=== PATIENT | male | born 1955 | race Hispanic/Latino ===

== ENCOUNTER 2018-10-27 14:43 | Emergency (ER) | payer OTHER, SELFPAY ==
[2018-10-27 14:52] VITALS: BP 135/81; PULSE 69; RESP 18; TEMP 36.2; O2SAT 96; BMI 30.2
--- NOTE | 2018-10-27 17:18 | DI.RAD.S_ITS ---
PROCEDURE: XR HIP W PEL IF DONE LT 2V INDICATIONS: pain s/p fall TECHNIQUE: AP pelvis with lateral view(s) of the left hip(s). COMPARISON: None. FINDINGS: Bones: No fractures or dislocations. Pelvic ring appears intact. No suspicious bony lesions. Moderate bilateral hip osteoarthritis. Soft tissues: The visualized bowel gas pattern is normal. No suspicious soft tissue calcifications. IMPRESSION: No fracture. No osseous lesion. If there are persistent symptoms or clinical suspicion for pathology, then repeat radiographs or advanced imaging (CT, MRI or bone scan) should be considered for further evaluation. Dictated by: Lynne Rivera MD, PhD on 10/27/2018 at 17:45 Approved by: Lynne Rivera MD, PhD on 10/27/2018 at 17:46
--- NOTE | 2018-10-27 17:18 | DI.RAD.S_ITS ---
PROCEDURE: XR SHOULDER LT MIN 2V INDICATIONS: pain s/p fall TECHNIQUE: 3 views of the shoulder were acquired. COMPARISON: None. FINDINGS: Bones: No fractures or dislocations. No suspicious bony lesions. Visualized ribs appear intact. Minimal acromioclavicular joint and glenohumeral joint osteoarthritis. Soft tissues: No suspicious soft tissue calcifications. IMPRESSION: No fracture. No acute osseous lesion. If there are persistent symptoms or clinical suspicion for pathology, then repeat radiographs or advanced imaging (CT, MRI or bone scan) should be considered for further evaluation. Dictated by: Lynne Rivera MD, PhD on 10/27/2018 at 17:44 Approved by: Lynne Rivera MD, PhD on 10/27/2018 at 17:45
--- NOTE | 2018-10-27 17:18 | DI.RAD.S_ITS ---
PROCEDURE: XR SHOULDER RT MIN 2V INDICATIONS: pain sp fall TECHNIQUE: 3 views of the shoulder were acquired. COMPARISON: None. FINDINGS: Bones: No fractures or dislocations. No suspicious bony lesions. Visualized ribs appear intact. Acromioclavicular joint and glenohumeral joint osteoarthritis. Soft tissues: No suspicious soft tissue calcifications. IMPRESSION: No fracture. No acute osseous lesion. If there are persistent symptoms or clinical suspicion for pathology, then repeat radiographs or advanced imaging (CT, MRI or bone scan) should be considered for further evaluation. Dictated by: Lynne Rivera MD, PhD on 10/27/2018 at 17:43 Approved by: Lynne Rivera MD, PhD on 10/27/2018 at 17:44
--- NOTE | 2018-10-27 21:56 | ED.TRAUMA ---
HPI - Trauma <GREY Bell - Last Filed: 10/27/18 22:31> General Chief Complaint: Extremity Injury, Upper Stated Complaint: fell in Fe, injured lt shoulder and hip Time Seen by Provider: 10/27/18 17:12 Source: patient Mode of arrival: ambulatory Limitations: no limitations History of Present Illness HPI narrative: Patient is a 63-year-old male former smoker who presents after ground level falls on the 8 than 20 sec. He states he was at work and slipped on ice multiple times. He complains of bilateral shoulder pain as well as hip pain on his left side. He denies loss of consciousness, neck or back pain. He complains of decreased range of motion, especially in his left shoulder. He denies any bruising. He has not up with primary care provider since the incident. The patient stated he has not been seen for his pain related to these falls, even though they happened more than a month ago as he kept hoping he would get better. Related Data Home Medications Medication Instructions Recorded Confirmed aspirin 81 mg PO QDAY #0 10/22/11 simvastatin 20 mg PO QDAY #0 10/22/11 Previous Rx's Medication Instructions Recorded lidocaine 2 patch TOP DAILY #15 each 10/27/18 Allergies Allergy/AdvReac Type Severity Reaction Status Date / Time codeine [CODEINE] Allergy Intermediate Rash Unverified 10/27/18 15:02 Review of Systems <GREY Bell - Last Filed: 10/27/18 22:31> Review of Systems GENERAL: Denies chills, fatigue, malaise, fever, sweats. HEENT: Denies sinus pain, ear pain, sore throat, difficulty swallowing, dizziness. RESPIRATORY: Denies dyspnea, cough, wheezing, hemoptysis, sputum. CARDIOVASCULAR: Denies chest pain, palpitations, orthopnea, edema, GASTROINTESTINAL: Denies nausea, vomiting, abdominal pain, diarrhea, constipation, melena. : Denies dysuria, frequency, incontinence, hematuria, urinary retention. MUSCULOSKELETAL: See HPI SKIN: Denies rash, skin lesions, or other NEUROLOGIC: Denies weakness, headache, numbness, change in speech, confusion, seizures, incoordination. PSYCHIATRIC: No concerning psychosocial issues. 12 point review of systems is negative except for those stated above PFSH <GREY Bell - Last Filed: 10/27/18 22:31> Social History Smoking Status: Former smoker Social History Smoking Status: Former smoker Exam <Nida Santos STRAP MAKING MACHINE OPERATOR-BC - Last Filed: 10/27/18 22:31> Narrative Exam Narrative: GENERAL: This is a well-nourished, well-developed patient, in no acute distress HEAD: Atraumatic. Normocephalic. No temporal or scalp tenderness. EYES: Pupils equal round and reactive. Extraocular motions intact. No scleral icterus. No injection or drainage. ENT: Nose without bleeding, purulent drainage or septal hematoma. Throat without erythema, tonsillar hypertrophy or exudate. Uvula midline. Airway patent. NECK: Trachea midline. No JVD or lymphadenopathy. Supple, nontender, no meningeal signs. CARDIOVASCULAR: Regular rate and rhythm without murmurs, gallops, or rubs. RESPIRATORY: Clear to auscultation. Breath sounds equal bilaterally. No wheezes, rales, or rhonchi. GASTROINTESTINAL: Abdomen soft, non-tender, nondistended. No hepato-splenomegaly, or palpable masses. No guarding. EXTREMITIES: Generalized pain to palpation bilateral shoulders. Left shoulder reduced range of motion all ramírez. Bilateral radial pulses noted. General pain to palpation noted left hip. BACK: Nontender without deformity or crepitance. No flank tenderness. No pain to C-spine or spinal palpation. NEURO: AOx3. Strength equal upper extremities and lower extremities bilaterally. SKIN: No erythema, no ecchymosis, no rash or abrasion noted bilateral shoulders and left hip. Initial Vital Signs Initial Vital Signs: Vital Signs Temperature 97.2 F L 10/27/18 14:52 Pulse Rate 69 10/27/18 14:52 Respiratory Rate 18 10/27/18 14:52 Blood Pressure 135/81 10/27/18 14:52 Pulse Oximetry 96 10/27/18 14:52 <Nida Weiner DO - Last Filed: 10/30/18 08:30> Initial Vital Signs Initial Vital Signs: Vital Signs Temperature 97.2 F L 10/27/18 14:52 Pulse Rate 69 10/27/18 14:52 Respiratory Rate 18 10/27/18 14:52 Blood Pressure 135/81 10/27/18 14:52 Pulse Oximetry 96 10/27/18 14:52 Course <GREY Bell - Last Filed: 10/27/18 22:31> Orders Ordered: ED Orders 10/27/18 17:18 XR hip w pel if done LT 2V Stat XR shoulder LT min 2V Stat XR shoulder RT min 2V Stat Vital Signs - 8 hr 10/27/18 14:52 Temperature 97.2 F L Pulse Rate 69 Respiratory Rate 18 Blood Pressure 135/81 Pulse Oximetry 96 <Nida Weiner DO - Last Filed: 10/30/18 08:30> Orders Ordered: ED Orders 10/27/18 17:18 XR hip w pel if done LT 2V Stat XR shoulder LT min 2V Stat XR shoulder RT min 2V Stat Vital Signs - 8 hr 10/27/18 14:52 Temperature 97.2 F L Pulse Rate 69 Respiratory Rate 18 Blood Pressure 135/81 Pulse Oximetry 96 MDM - Trauma <GREY Bell - Last Filed: 10/27/18 22:31> Imaging Data hip xray: Radiologist's impression: [address] [address] XRay Report Signed Patient: Darnell GoelMR#: [id number] : 4Acct:[id number] Age/Sex: 63 / MDate of Service: 10/27/18 Loc: ED Accession Number: [id number] Procedure: XR hip w pel if done LT 2V Ordering Provider: Nida Santos-BLANCA PROCEDURE: XR HIP W PEL IF DONE LT 2V INDICATIONS: pain s/p fall TECHNIQUE: AP pelvis with lateral view(s) of the left hip(s). COMPARISON: None. FINDINGS: Bones: No fractures or dislocations. Pelvic ring appears intact. No suspicious bony lesions. Moderate bilateral hip osteoarthritis. Soft tissues: The visualized bowel gas pattern is normal. No suspicious soft tissue calcifications. IMPRESSION: No fracture. No osseous lesion. If there are persistent symptoms or clinical suspicion for pathology, then repeat radiographs or advanced imaging (CT, MRI or bone scan) should be considered for further evaluation. Dictated by: Lynne Rivera MD, PhD on 10/27/2018 at 17:45 Approved by: Lynne Rivera MD, PhD on 10/27/2018 at 17:46 right shoulder: Radiologist's impression: [address] [address] XRay Report Signed Patient: Darnell Goel#: [id number] : 1955t:[id number] Age/Sex: 63 / MDate of Service: 10/27/18 Loc: ED Accession Number: [id number] Procedure: XR shoulder RT min 2V Ordering Provider: Nida Santos PROCEDURE: XR SHOULDER RT MIN 2V INDICATIONS: pain sp fall TECHNIQUE: 3 views of the shoulder were acquired. COMPARISON: None. FINDINGS: Bones: No fractures or dislocations. No suspicious bony lesions. Visualized ribs appear intact. Acromioclavicular joint and glenohumeral joint osteoarthritis. Soft tissues: No suspicious soft tissue calcifications. IMPRESSION: No fracture. No acute osseous lesion. If there are persistent symptoms or clinical suspicion for pathology, then repeat radiographs or advanced imaging (CT, MRI or bone scan) should be considered for further evaluation. Dictated by: Lynne Rivera MD, PhD on 10/27/2018 at 17:43 Approved by: Lynne Rivera MD, PhD on 10/27/2018 at 17:44 left shoulder xray : Radiologist's impression: [address] [address] XRay Report Signed Patient: Darnell Goel#: [id number] : 4At:[id number] Age/Sex: 63 / MDate of Service: 10/27/18 Loc: ED Accession Number: [id number] Procedure: XR shoulder LT min 2V Ordering Provider: Nida Santos PROCEDURE: XR SHOULDER LT MIN 2V INDICATIONS: pain s/p fall TECHNIQUE: 3 views of the shoulder were acquired. COMPARISON: None. FINDINGS: Bones: No fractures or dislocations. No suspicious bony lesions. Visualized ribs appear intact. Minimal acromioclavicular joint and glenohumeral joint osteoarthritis. Soft tissues: No suspicious soft tissue calcifications. IMPRESSION: No fracture. No acute osseous lesion. If there are persistent symptoms or clinical suspicion for pathology, then repeat radiographs or advanced imaging (CT, MRI or bone scan) should be considered for further evaluation. Dictated by: Lynne Rivera MD, PhD on 10/27/2018 at 17:44 Approved by: Lynne Rivera MD, PhD on 10/27/2018 at 17:45 [facility] Narrative Medical decision making narrative: The patient is a 63-year-old male who presents with chief complaint of bilateral shoulder pain and left-sided hip pain after ground level falls repeatedly last month for work. All of his x-rays came back normal. However I am concerned about the decreased range of motion as left shoulder. I encouraged him to follow up with primary care provider as he may need physical therapy or more imaging. I gave him a prescription of lidocaine patches to use the most painful areas. I encouraged him to use rest ice compression elevation as well as [id number] pain medications as needed and able. Patient has no questions or concerns upon discharge. I gave the patient a note for decreased lifting as well as no overhead work until he was cleared by another provider. Patient questions or concerns upon discharge. Discharge Plan Departure Patient Disposition: Home Clinical Impression: Fall from ground level Bilateral shoulder pain Qualifiers: Chronicity: acute Qualified Code(s): M25.511 - Pain in right shoulder Decreased range of motion (ROM) of shoulder Qualifiers: Laterality: left Qualified Code(s): M25.612 - Stiffness of left shoulder, not elsewhere classified Acute hip pain Qualifiers: Laterality: left Qualified Code(s): M25.552 - Pain in left hip Discharge Date/Time: 10/27/18 18:31 Interventions: ED Discharge Assessment Last Done: 10/27/18 18:31 Instructions: How To Perform RICE (Rest, Ice, Compress, Elevate), DI for Shoulder Pain, DI for Hip Pain Activity Restrictions/Additional Instructions: Your x-rays came back normal today. Please follow up with primary care provider in the next few days. I am concerned that you need further evaluation and workup, especially for her left shoulder. Please use rest ice compression elevation. You declined a sling today. I am giving you a note for no heavy lifting as well as no overhead work. Come back to the emergency department for any acute concerns. Prescriptions: New lidocaine 5 % adhesive patch,medicated 2 patch TOP DAILY Qty: 15 RF: 0 No Action simvastatin 20 MG tablet 20 mg PO QDAY Qty: 0 RF: 0 aspirin 81 MG tablet,chewable 81 mg PO QDAY Qty: 0 RF: 0 Stand Alone Forms: Work Release Note <Nida Weiner DO - Last Filed: 10/30/18 08:30> Cosign ED Attending Cosignature Attestation: I was immediately available in the department for consultation. This documentation has been reviewed and I agree with assessment and plan. Supervised by Nida Weiner DO
--- NOTE | 2018-10-27 22:20 | ED_ITS ---
HPI - Trauma <GREY Bell - Last Filed: 10/27/18 22:31> General Chief Complaint: Extremity Injury, Upper Stated Complaint: fell in Fe, injured lt shoulder and hip Time Seen by Provider: 10/27/18 17:12 Source: patient Mode of arrival: ambulatory Limitations: no limitations History of Present Illness HPI narrative: Patient is a 63-year-old male former smoker who presents after ground level falls on the 8 than 20 sec. He states he was at work and slipped on ice multiple times. He complains of bilateral shoulder pain as well as hip pain on his left side. He denies loss of consciousness, neck or back pain. He complains of decreased range of motion, especially in his left shoulder. He denies any bruising. He has not up with primary care provider since the incident. The patient stated he has not been seen for his pain related to these falls, even though they happened more than a month ago as he kept hoping he would get better. Related Data Home Medications Medication Instructions Recorded Confirmed aspirin 81 mg PO QDAY #0 10/22/11 simvastatin 20 mg PO QDAY #0 10/22/11 Previous Rx's Medication Instructions Recorded lidocaine 2 patch TOP DAILY #15 each 10/27/18 Allergies Allergy/AdvReac Type Severity Reaction Status Date / Time codeine [CODEINE] Allergy Intermediate Rash Unverified 10/27/18 15:02 Review of Systems <GREY Bell - Last Filed: 10/27/18 22:31> Review of Systems GENERAL: Denies chills, fatigue, malaise, fever, sweats. HEENT: Denies sinus pain, ear pain, sore throat, difficulty swallowing, dizziness. RESPIRATORY: Denies dyspnea, cough, wheezing, hemoptysis, sputum. CARDIOVASCULAR: Denies chest pain, palpitations, orthopnea, edema, GASTROINTESTINAL: Denies nausea, vomiting, abdominal pain, diarrhea, constipation, melena. : Denies dysuria, frequency, incontinence, hematuria, urinary retention. MUSCULOSKELETAL: See HPI SKIN: Denies rash, skin lesions, or other NEUROLOGIC: Denies weakness, headache, numbness, change in speech, confusion, seizures, incoordination. PSYCHIATRIC: No concerning psychosocial issues. 12 point review of systems is negative except for those stated above PFSH <GREY Bell - Last Filed: 10/27/18 22:31> Social History Smoking Status: Former smoker Social History Smoking Status: Former smoker Exam <Nida Santos BOG CUTTER-BC - Last Filed: 10/27/18 22:31> Narrative Exam Narrative: GENERAL: This is a well-nourished, well-developed patient, in no acute distress HEAD: Atraumatic. Normocephalic. No temporal or scalp tenderness. EYES: Pupils equal round and reactive. Extraocular motions intact. No scleral icterus. No injection or drainage. ENT: Nose without bleeding, purulent drainage or septal hematoma. Throat without erythema, tonsillar hypertrophy or exudate. Uvula midline. Airway patent. NECK: Trachea midline. No JVD or lymphadenopathy. Supple, nontender, no meningeal signs. CARDIOVASCULAR: Regular rate and rhythm without murmurs, gallops, or rubs. RESPIRATORY: Clear to auscultation. Breath sounds equal bilaterally. No wheezes, rales, or rhonchi. GASTROINTESTINAL: Abdomen soft, non-tender, nondistended. No hepato- splenomegaly, or palpable masses. No guarding. EXTREMITIES: Generalized pain to palpation bilateral shoulders. Left shoulder reduced range of motion all ramírez. Bilateral radial pulses noted. General pain to palpation noted left hip. BACK: Nontender without deformity or crepitance. No flank tenderness. No pain to C-spine or spinal palpation. NEURO: AOx3. Strength equal upper extremities and lower extremities bilaterally. SKIN: No erythema, no ecchymosis, no rash or abrasion noted bilateral shoulders and left hip. Initial Vital Signs Initial Vital Signs: Vital Signs Temperature 97.2 F L 10/27/18 14:52 Pulse Rate 69 10/27/18 14:52 Respiratory Rate 18 10/27/18 14:52 Blood Pressure 135/81 10/27/18 14:52 Pulse Oximetry 96 10/27/18 14:52 <Nida Weiner DO - Last Filed: 10/30/18 08:30> Initial Vital Signs Initial Vital Signs: Vital Signs Temperature 97.2 F L 10/27/18 14:52 Pulse Rate 69 10/27/18 14:52 Respiratory Rate 18 10/27/18 14:52 Blood Pressure 135/81 10/27/18 14:52 Pulse Oximetry 96 10/27/18 14:52 Course <GREY Blel - Last Filed: 10/27/18 22:31> Orders Ordered: ED Orders 10/27/18 17:18 XR hip w pel if done LT 2V Stat XR shoulder LT min 2V Stat XR shoulder RT min 2V Stat Vital Signs - 8 hr 10/27/18 14:52 Temperature 97.2 F L Pulse Rate 69 Respiratory Rate 18 Blood Pressure 135/81 Pulse Oximetry 96 <Nida Weiner DO - Last Filed: 10/30/18 08:30> Orders Ordered: ED Orders 10/27/18 17:18 XR hip w pel if done LT 2V Stat XR shoulder LT min 2V Stat XR shoulder RT min 2V Stat Vital Signs - 8 hr 10/27/18 14:52 Temperature 97.2 F L Pulse Rate 69 Respiratory Rate 18 Blood Pressure 135/81 Pulse Oximetry 96 MDM - Trauma <GREY Bell - Last Filed: 10/27/18 22:31> Imaging Data hip xray: Radiologist's impression: [address] [address] XRay Report Signed Patient: Darnell GoelMR#: [id number] : 4Acct:[id number] Age/Sex: 63 / MDate of Service: 10/27/18 Loc: ED Accession Number: [id number] Procedure: XR hip w pel if done LT 2V Ordering Provider: Nida Santos-BLANCA PROCEDURE: XR HIP W PEL IF DONE LT 2V INDICATIONS: pain s/p fall TECHNIQUE: AP pelvis with lateral view(s) of the left hip(s). COMPARISON: None. FINDINGS: Bones: No fractures or dislocations. Pelvic ring appears intact. No suspicious bony lesions. Moderate bilateral hip osteoarthritis. Soft tissues: The visualized bowel gas pattern is normal. No suspicious soft tissue calcifications. IMPRESSION: No fracture. No osseous lesion. If there are persistent symptoms or clinical suspicion for pathology, then repeat radiographs or advanced imaging (CT, MRI or bone scan) should be considered for further evaluation. Dictated by: Lynne Rivera MD, PhD on 10/27/2018 at 17:45 Approved by: Lynne Rivera MD, PhD on 10/27/2018 at 17:46 right shoulder: Radiologist's impression: [address] [address] XRay Report Signed Patient: Darnell Goel#: [id number] : 1955t:[id number] Age/Sex: 63 / MDate of Service: 10/27/18 Loc: ED Accession Number: [id number] Procedure: XR shoulder RT min 2V Ordering Provider: Nida Santos PROCEDURE: XR SHOULDER RT MIN 2V INDICATIONS: pain sp fall TECHNIQUE: 3 views of the shoulder were acquired. COMPARISON: None. FINDINGS: Bones: No fractures or dislocations. No suspicious bony lesions. Visualized ribs appear intact. Acromioclavicular joint and glenohumeral joint osteoarthritis. Soft tissues: No suspicious soft tissue calcifications. IMPRESSION: No fracture. No acute osseous lesion. If there are persistent symptoms or clinical suspicion for pathology, then repeat radiographs or advanced imaging (CT, MRI or bone scan) should be considered for further evaluation. Dictated by: Lynne Rivera MD, PhD on 10/27/2018 at 17:43 Approved by: Lynne Rivera MD, PhD on 10/27/2018 at 17:44 left shoulder xray : Radiologist's impression: [address] [address] XRay Report Signed Patient: Darnell Goel#: [id number] : 4At:[id number] Age/Sex: 63 / MDate of Service: 10/27/18 Loc: ED Accession Number: [id number] Procedure: XR shoulder LT min 2V Ordering Provider: Nida Santos PROCEDURE: XR SHOULDER LT MIN 2V INDICATIONS: pain s/p fall TECHNIQUE: 3 views of the shoulder were acquired. COMPARISON: None. FINDINGS: Bones: No fractures or dislocations. No suspicious bony lesions. Visualized ribs appear intact. Minimal acromioclavicular joint and glenohumeral joint osteoarthritis. Soft tissues: No suspicious soft tissue calcifications. IMPRESSION: No fracture. No acute osseous lesion. If there are persistent symptoms or clinical suspicion for pathology, then repeat radiographs or advanced imaging (CT, MRI or bone scan) should be considered for further evaluation. Dictated by: Lynne Rivera MD, PhD on 10/27/2018 at 17:44 Approved by: Lynne Rivera MD, PhD on 10/27/2018 at 17:45 [facility] Narrative Medical decision making narrative: The patient is a 63-year-old male who presents with chief complaint of bilateral shoulder pain and left-sided hip pain after ground level falls repeatedly last month for work. All of his x-rays came back normal. However I am concerned about the decreased range of motion as left shoulder. I encouraged him to follow up with primary care provider as he may need physical therapy or more imaging. I gave him a prescription of lidocaine patches to use the most painful areas. I encouraged him to use rest ice compression elevation as well as [id number] pain medications as needed and able. Patient has no questions or concerns upon discharge. I gave the patient a note for decreased lifting as well as no overhead work until he was cleared by another provider. Patient questions or concerns upon discharge. Discharge Plan Departure Patient Disposition: Home Clinical Impression: Fall from ground level Bilateral shoulder pain Qualifiers: Chronicity: acute Qualified Code(s): M25.511 - Pain in right shoulder Decreased range of motion (ROM) of shoulder Qualifiers: Laterality: left Qualified Code(s): M25.612 - Stiffness of left shoulder, not elsewhere classified Acute hip pain Qualifiers: Laterality: left Qualified Code(s): M25.552 - Pain in left hip Discharge Date/Time: 10/27/18 18:31 Interventions: ED Discharge Assessment Last Done: 10/27/18 18:31 Instructions: How To Perform RICE (Rest, Ice, Compress, Elevate), DI for Shoulder Pain, DI for Hip Pain Activity Restrictions/Additional Instructions: Your x-rays came back normal today. Please follow up with primary care provider in the next few days. I am concerned that you need further evaluation and workup, especially for her left shoulder. Please use rest ice compression elevation. You declined a sling today. I am giving you a note for no heavy lifting as well as no overhead work. Come back to the emergency department for any acute concerns. Prescriptions: New lidocaine 5 % adhesive patch,medicated 2 patch TOP DAILY Qty: 15 RF: 0 No Action simvastatin 20 MG tablet 20 mg PO QDAY Qty: 0 RF: 0 aspirin 81 MG tablet,chewable 81 mg PO QDAY Qty: 0 RF: 0 Stand Alone Forms: Work Release Note <Nida Weiner DO - Last Filed: 10/30/18 08:30> Cosign ED Attending Cosignature Attestation: I was immediately available in the department for consultation. This documentation has been reviewed and I agree with assessment and plan. Supervised by Nida Weiner DO
== END 2018-10-27 18:31 | disposition home or self-care (01) ==
PROVIDERS: Emergency Provider Nurse Practitioner Family
DX: M25.511 Pain in right shoulder (principal); M25.612 Stiffness of left shoulder, not elsewhere classified; M25.552 Pain in left hip; W00.0XXA Fall on same level due to ice and snow, initial encounter; Y99.0 Civilian activity done for income or pay
CPT/HCPCS: 73030; 73502; 99282; 99284

== ENCOUNTER 2019-02-19 09:49 | Emergency (ER) | payer OTHER, SELFPAY ==
[2019-02-19 09:50] VITALS: BP 137/85; PULSE 78; RESP 12; TEMP 36.7; O2SAT 99
--- NOTE | 2019-02-19 10:13 | DI.RAD.S_ITS ---
PROCEDURE: XR ANKLE LT MIN 3V INDICATIONS: injury TECHNIQUE: 3 views of the ankle were acquired. COMPARISON: None. FINDINGS: Bones: There is a moderately displaced fracture of the posterior malleolus. There is a mildly displaced fracture of the medial malleolus. There is widening of the medial ankle mortise. Small bony fragments adjacent to the calcaneocuboid joint. Soft tissues: No tibiotalar joint effusion. Achilles tendon appears normal. IMPRESSION: 1. Medial and posterior malleolar fractures. 2. 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 Dictated by: Lainey Kearns M.D. on 02/19/2019 at 10:32 Approved by: Lainey Kearns M.D. on 02/19/2019 at 10:33
--- NOTE | 2019-02-19 10:43 | ED.LOWEXIN ---
HPI - Extremity Injury (Lower) General Chief Complaint: Extremity Injury, Lower Stated Complaint: THINKS LEFT ANKLE IS BROKEN Time Seen by Provider: 02/19/19 10:01 Source: patient and family Mode of arrival: ambulatory Limitations: no limitations History of Present Illness HPI Narrative: Patient states he was walking outside and accidentally stepped in a hole with his left foot. Patient states he lost his balance and fell and felt a crack and instant pain in his left ankle. Patient states this swollen and he has not been able to walk on it since the incident happened about an hour ago. Patient denies other injuries. No other complaints at this time. Patient states he is otherwise fairly healthy. Related Data Home Medications Medication Instructions Recorded Confirmed simvastatin 20 mg PO QPM #0 10/22/11 02/19/19 acetaminophen 1,500 mg PO BID 02/19/19 02/19/19 aspirin 81 mg PO QPM 02/19/19 02/19/19 ibuprofen 800 mg PO BID 02/19/19 02/19/19 lisinopril 20 mg PO DAILY 02/19/19 02/19/19 Previous Rx's Medication Instructions Recorded hydrocodone-acetaminophen 1 - 2 tab PO Q4H PRN #30 tab 02/19/19 Allergies Allergy/AdvReac Type Severity Reaction Status Date / Time codeine [CODEINE] Allergy Intermediate Rash Unverified 10/27/18 15:02 Review of Systems Constitutional Denies chills, Denies fever(s), Denies lethargy and Denies weakness Eyes Denies change in vision, Denies eye discharge, Denies irritation and Denies loss of vision ENT Ears, Nose, Mouth, and Throat: Denies change in voice, Denies neck pain and Denies sore throat Cardiovascular Denies chest pain, Denies irregular heart rhythm, Denies lightheadedness, Denies palpitations, Denies dyspnea, Denies dyspnea on exertion and Denies orthopnea Respiratory Denies cough, Denies dyspnea, Denies dyspnea on exertion and Denies wheezing Gastrointestinal Gastrointestinal: Denies abdominal pain, Denies change in bowel habits, Denies diarrhea, Denies nausea and Denies vomiting Genitourinary Denies hematuria, Denies flank pain, Denies urinary incontinence and Denies urinary urgency Musculoskeletal Denies neck pain Comments: Left ankle pain and swelling Integumentary/Breasts Denies pruritus, Denies erythema, Denies rash and Denies wounds Neurologic Denies confusion, Denies loss of vision and Denies weakness Psychiatric Denies anxiety, Denies confusion, Denies depression, Denies homicidal ideation and Denies suicidal ideation Endocrine Denies palpitations Hematologic/Lymphatic Denies easy bruising Allergic/Immunologic Denies wheezing [facility] Medical History Hyperlipidemia (Acute) Surgical History No pertinent past surgical history (Acute) Social History Smoking Status: Former smoker Social History Smoking Status: Former smoker Exam Initial Vital Signs Initial Vital Signs: Vital Signs Temperature 98.1 F 02/19/19 09:50 Pulse Rate 78 02/19/19 09:50 Respiratory Rate 12 02/19/19 09:50 Blood Pressure 137/85 02/19/19 09:50 Pulse Oximetry 99 02/19/19 09:50 Const General: cooperative and well developed Nutritional Appearance: well nourished Orientation: alert, awake, oriented x3 and not confused [facility] Head: normocephalic and atraumatic Ears: external ears normal and TM's normal bilaterally Nose: external nose normal and No nasal discharge Face and sinus: sinuses nontender, face symmetric, no sinus tenderness and No dry mucous membranes Mouth: oral mucosae normal and moist mucous membranes Teeth and gingiva: dentition normal Throat: tonsils normal and uvula midline Eyes General: appearance normal, both eyes and all related structures Eyelids: eyelids normal Conjunctivae: conjunctivae normal Sclera: sclerae normal Pupils: PERRL EOM: EOM intact bilaterally Neck Neck: normal visual inspection, trachea midline, No lymphadenopathy, No midline deformity and No JVD Lymphatic: No lymphedema Chest Chest: normal inspection of the chest Resp Effort & Inspection: normal respiratory effort, able to speak in complete sentences, no respiratory distress and no use of accessory muscles Auscultation: clear to auscultation bilaterally, no rales, no rhonchi and no wheezes Cardio Rate: regular rate Rhythm: regular rhythm Heart Sounds: no click, no gallops, no murmurs and no rubs Pulses: normal peripheral pulses Back/Spine/Pelvis Back: No CVA tenderness Cervical Spine: cervical ROM normal and No pain with cervical ROM Thoracic/Lumbar Spine: thoracic and lumbar spine normal to inspection Skin General: no rashes or lesions noted, No jaundice and No petechiae Neuro General: alert, awake, oriented x3 and no focal motor deficits Speech: speech normal Extrem General: no pedal edema and no calf tenderness Other: Patient has tenderness and moderate edema of his left ankle with prominence of the medial malleolus. Distal pulses are intact including the posterior tibial and dorsalis pedis. Patient is able to move his toes and has intact sensation. Psych Appearance: well kempt Mental Status: mental status grossly normal Attitude: cooperative Thought Content: normal and suicidality Judgment: judgment good Procedures Orthopedic Splinting/Casting Injury #1: Side: left Lower Extremity Injury Location: ankle Post splinting neuro exam: intact Post splinting vascular exam: intact Placed by: Nursing Course Course Narrative: X-ray was performed and showed posterior and medial malleolar fractures of the left ankle. There is also widening of the medial ankle mortise. Dr. Strange of Orthopedics was consulted for management recommendations, and he requested follow-up in his office within the next week. Patient was given analgesia in the emergency department. He was placed in a posterior mold splint with stirrups, and given instructions for nonweightbearing. Patient states he has crutches at home already , and is agreeable to the plan. Orders Ordered: Discontinued Medications Hydromorphone HCl (Dilaudid) 1 mg IM NOW ONE Stop: 02/19/19 10:48 Last Admin: 02/19/19 10:56 Dose: 1 mg Ketorolac Tromethamine (Toradol) 60 mg IM NOW ONE Stop: 02/19/19 10:48 Last Admin: 02/19/19 10:55 Dose: 60 mg Vital Signs - 8 hr 02/19/19 09:50 Temperature 98.1 F Pulse Rate 78 Respiratory Rate 12 Blood Pressure 137/85 Pulse Oximetry 99 MDM - Extremity Injury (Lower) Medical Records Attestation: I reviewed the patient's medical records. Imaging Data Ankle x-ray: Radiologist's impression: PROCEDURE: XR ANKLE LT MIN 3V INDICATIONS: injury TECHNIQUE: 3 views of the ankle were acquired. COMPARISON: None. FINDINGS: Bones: There is a moderately displaced fracture of the posterior malleolus. There is a mildly displaced fracture of the medial malleolus. There is widening of the medial ankle mortise. Small bony fragments adjacent to the calcaneocuboid joint. Soft tissues: No tibiotalar joint effusion. Achilles tendon appears normal. IMPRESSION: 1. Medial and posterior malleolar fractures. 2. 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 Dictated by: Lainey Kearns M.D. on 02/19/2019 at 10:32 Approved by: Lainey Kearns M.D. on 02/19/2019 at 10:33 Discharge Plan Departure Patient Disposition: Home Clinical Impression: Fall from ground level Ankle fracture Qualifiers: Encounter type: initial encounter Fracture type: closed Laterality: left Qualified Code(s): S82.892A - Other fracture of left lower leg, initial encounter for closed fracture Discharge Date/Time: 02/19/19 12:20 Interventions: ED Discharge Assessment Last Done: 02/19/19 12:20 Instructions: DI for Ankle Fracture Activity Restrictions/Additional Instructions: Your x-ray shows breaks of 2 different parts of your tibia, the larger of your lower leg bones, at the ankle. Your case has been discussed with Dr. Strange, the on-call orthopedic surgeon, who says you will need surgery for this. However, your surgery is not needed emergently, and Dr. Strange would like to see you next week on February 26 at 11:00 a.m. in his office. At this time, he will plan your surgery with you. In the meantime, please leave the splint on until you see Dr. Strange. Please do not bear any weight on your foot, and use crutches to get around. You should keep your splint clean and dry. You may take the pain medication, as needed. You should also ice and elevate your ankle whenever possible. Prescriptions: New hydrocodone-acetaminophen 5-325 mg tablet 1 - 2 tab PO Q4H PRN (Reason: pain) Qty: 30 RF: 0 No Action simvastatin 20 MG tablet 20 mg PO QPM Qty: 0 RF: 0 lisinopril 20 mg tablet 20 mg PO DAILY RF: 0 aspirin 81 mg Tablet,Delayed Release (Dr/Ec) 81 mg PO QPM RF: 0 acetaminophen 500 mg Tablet 1,500 mg PO BID RF: 0 ibuprofen 200 mg Tablet 800 mg PO BID RF: 0 Referrals: Tanner Strange MD [Physician] - (Your appointment is on February 26 at 11:00 a.m..)
[2019-02-19] MEDS: KETOROLAC 60 MG/2 ML VIAL IM (10:55)
[2019-02-19] MEDS: HYDROMORPHONE 1 MG INJ IM (10:56)
[2019-02-19 11:15] VITALS: BP 134/94; PULSE 65; O2SAT 95
[2019-02-19 12:20] VITALS: BP 110/72; PULSE 66; RESP 12; TEMP 36.2; O2SAT 98
--- NOTE | 2019-02-19 13:37 | PC.NURSE ---
Pt's came back to ED, because they did not have crutches at home that work for the patient. Pt declined to come in person to be properly fitted and trained on crutches. Issued a set of crutches to spouse and gave education on how to properly size and use crutches. She demonstrates understanding of instructions and will call/return to ED if needed. Gave written instructions to take home.
== END 2019-02-19 12:20 | disposition home or self-care (01) ==
PROVIDERS: Emergency Provider Emergency Medicine
DX: S82.892A Other fracture of left lower leg, initial encounter for closed fracture (principal); W18.30XA Fall on same level, unspecified, initial encounter
CPT/HCPCS: 73610; 96372; 99283; J1170; J1885

== ENCOUNTER → 2019-02-27 09:21 | Outpatient (CLI) | payer OTHER, SELFPAY | PROVIDERS: Visit Provider Orthopaedic Surgery | DX: Z01.818 Encounter for other preprocedural examination (principal) | CPT/HCPCS: 93005 ==

== ENCOUNTER → 2020-05-21 09:48 | Outpatient (CLI) | payer MEDICARE, SELFPAY ==
[2020-05-21 10:25] LABS: Add Manual Diff / Slide Review NO; Basophils Absolute Auto 100 /uL (0-100); Basophils Percent Auto 0.7 % (0-2); Eosinophils Absolute Auto 100 /uL (0-450); Eosinophils Percent Auto 2.1 % (2-4); Hematocrit 39.9 % (41-53); Hemoglobin 13.7 g/dL (13.5-17.5); Lymphocytes Absolute Auto 2000 /uL (1100-4500); Lymphocytes Percent Auto 30.1 % (25-40); Mean Corpuscular HGB Conc 34.4 % (30-36); Mean Corpuscular Hemoglobin 28.5 PG (26-34); Mean Corpuscular Volume 82.7 fL (80-100); Monocytes Absolute Auto 400 /uL (0-900); Monocytes Percent Auto 5.9 % (3-14); Neutrophils Absolute Auto 4200 /uL (1500-7000); Neutrophils Percent Auto 61.2 % (50-75); Platelet Count 217 X10^3/uL (150-400); Red Blood Cell Count 4.82 X10^6/uL (4.5-5.9); Red Cell Distribution Width 13.6 % (11.6-14.8); White Blood Cell Count 6.8 X10^3/uL (4.5-11.0)
[2020-05-21 11:02] LABS: Alanine Aminotransferase 36 IU/L (<50); Albumin 4.1 g/dL (3.5-5.0); Albumin Globulin Ratio 1.3 (1.0-2.8); Alkaline Phosphatase 136 U/L (38-126); Aspartate Aminotransferase 31 IU/L (17-59); BUN Creatinine Ratio 18.1 (6-22); Bilirubin Total 0.5 mg/dL (0.2-1.3); Blood Urea Nitrogen 13 mg/dL (9-20); Calcium 9.3 mg/dL (8.4-10.2); Carbon Dioxide 28 mmol/L (22-32); Chloride 104 mmol/L (98-107); Cholesterol 223 mg/dL (140-199); Estimated Glomerular Filt Rate > 60.0 mL/min (>60); Globulin 3.1 g/dL (1.7-4.1); Glucose 168 mg/dL (80-110); HDL Cholesterol 35 mg/dL (40-60); HEMOLYSIS 16 (0-50); Potassium 4.9 mmol/L (3.4-5.1); Sodium 138 mmol/L (137-145); Total Protein 7.2 g/dL (6.3-8.2)
[2020-05-21 11:12] LABS: Triglycerides 637 mg/dL (35-150)
== END ==
PROVIDERS: PCP Family Medicine; Referring Provider Family Medicine; Visit Provider Family Medicine
DX: E78.5 Hyperlipidemia, unspecified (principal); I10 Essential (primary) hypertension
CPT/HCPCS: 36415; 80053; 80061; 85025

== ENCOUNTER → 2020-05-30 09:40 | Outpatient (CLI) | payer MEDICARE, SELFPAY ==
[2020-05-30 10:52] LABS: Hemoglobin A1C% w Est Avg Glu 7.7 % (4.0-6.0)
== END ==
PROVIDERS: PCP Family Medicine; Referring Provider Family Medicine; Visit Provider Family Medicine
DX: R73.9 Hyperglycemia, unspecified (principal)
CPT/HCPCS: 36415; 83036

== ENCOUNTER → 2020-06-24 09:48 | Outpatient (CLI) | payer MEDICARE, SELFPAY ==
--- NOTE | 2020-06-24 11:22 | DIET.PN ---
Diabetes Intake: Initial Assessment Assess: Mr. Goel is a 65 YOM referred for type 2 diabetes. He is newly diagnosed. He endorses no changes to his eating or activity patters in the last few years aside from the loss of his job and quitting smoking. He admits to drinking sodas, skipping meals, and has experienced a 35lb weight gain since quitting smoking 4 yrs ago. Labs: Per pt report: A1c: 7.7 Meds: metformin 500mg Diet: per 24 hr recall: B: 2 cups coffee L: sandwich, chips, soda D: pro, veg, starch Sn: chocolate, sweets, icecream, milk Wt: 202lb Ht: 66in BMI: 32.6 BP: 130/84 DX: Altered nutrition related laboratory values related to impaired glucose metabolism, lack of previous exposure to nutrition information as evidenced by pt report, diagnosis of diabetes, previous diet high in refined carbohydrates. Intervention: 1. Completed intake assessment. Discussed barriers to care. 2. Discussed pathophysiology of diabetes. Reviewed A1c and its correlation to blood glucose numbers. Discussed recommended BG ranges. 3. Discussed importance of self-monitoring, how often, and when to check. 4. Reviewed hyper/hypoglycemia and treatment. 5. Reviewed safe disposal of equipment (strip/lancets/insulin needles). 6. Created SMART goals for pt self-care and success. 7. Discussed program curriculum outline and class needs based on individual goals. SMART Goals: 1. Pt with a goal weight of 165lb in the next year through changes in dietary patterns, reading labels, carb counting, and walking 10,000 steps daily. Monitor/Evaluate: Pt will attend full DSME program. Basic Nutrition class scheduled for Jul 23.
== END ==
PROVIDERS: PCP Family Medicine; Referring Provider Family Medicine; Visit Provider Family Medicine
DX: E11.9 Type 2 diabetes mellitus without complications (principal)
CPT/HCPCS: G0108

== ENCOUNTER → 2020-06-30 14:25 | Outpatient (CLI) | payer MEDICARE, SELFPAY ==
--- NOTE | 2020-06-30 15:51 | DIET.PN ---
Diabetes Physiology: Intervention 1. Diabetes physiology 2. Detecting and treatment of acute and chronic complications 3. Diagnosis of and difference in types of diabetes 4. Self-monitoring and pattern management a .Demonstrate glucometer and control testing b. Explain BG results and action to take when out of range. 5. Foot , eye, dental care 6. Medications a. Oral medication classification b. Injectable c. Insulin i. Injection protocol ii. Other delivery methods
== END ==
PROVIDERS: PCP Family Medicine; Referring Provider Family Medicine; Visit Provider Family Medicine
DX: E11.9 Type 2 diabetes mellitus without complications (principal); Z71.3 Dietary counseling and surveillance
CPT/HCPCS: G0109

== ENCOUNTER → 2020-07-14 14:25 | Outpatient (CLI) | payer MEDICARE, SELFPAY ==
--- NOTE | 2020-07-14 15:34 | DIET.PN ---
Diabetes Exercise/Lifestyle change: 1. Importance of exercise 2. FITT (frequency, intensity, time, type) 3. Strength training tips and guidelines 4. Glucose monitoring/ranges before and after a. Carbohydrate needs based on glucose ranges and duration/intensity of exercise b. Rule of 15 5. Proper foot attire 6. Developing strategies for behavior change 7. SMART Goal Setting 8. Home exercise routine demonstration (as a class)
== END ==
PROVIDERS: PCP Family Medicine; Referring Provider Family Medicine; Visit Provider Family Medicine
DX: E11.9 Type 2 diabetes mellitus without complications (principal); Z71.3 Dietary counseling and surveillance
CPT/HCPCS: G0109

== ENCOUNTER → 2020-07-23 10:01 | Outpatient (CLI) | payer MEDICARE, SELFPAY ==
--- NOTE | 2020-07-23 11:30 | DIET.PN ---
Diabetes: Healthy Eating 1 Intervention: ? Discussed pathophysiology of diabetes and impact of nutrition/diet on blood sugar control.? Discussed fed versus non-fed state.?? ? Reviewed importance of Balance, Variety, and Moderation. ? Discussed the effect of carbohydrates/protein/fat on blood sugar control.? ? Stressed importance of consistent carbohydrate intake at each meal and provided instructions for recommended servings/portions of carbohydrates/protein per meal. Provided educational material. ? Reviewed carbohydrate counting and measuring carbohydrate content via serving sizes and reading nutrition labels.? Provided handouts.?? ? Discussed the difference between simple versus complex carbohydrates and the effect of fiber on blood sugar control.? Discussed various methods to increase fiber content in diet. ? Discussed the plate method for creating more carbohydrate conscious balanced meals. ? Stressed importance of meal timing and not going >4-5 hours between meals. Encouraged adding protein to evening snack to support glucose control overnight. ? Discussed importance of making dietary habits part of lifestyle change.
== END ==
PROVIDERS: PCP Family Medicine; Referring Provider Family Medicine; Visit Provider Family Medicine
DX: E11.9 Type 2 diabetes mellitus without complications (principal); Z71.3 Dietary counseling and surveillance
CPT/HCPCS: G0109

== ENCOUNTER → 2020-07-28 09:56 | Outpatient (CLI) | payer MEDICARE, SELFPAY ==
--- NOTE | 2020-07-28 11:51 | DIET.PN ---
Diabetes: Healthy Eating 2 Intervention: Fats effects on glucose, weight, heart disease, cholesterol Sat Vs Unsat Protein- animal and plant based options Low, med, high fat meats Sugar substitutes Sodium Health claims Grocery shopping guidelines Eating away from home Alcohol Sick day guidelines Ketone Testing
== END ==
PROVIDERS: PCP Family Medicine; Referring Provider Family Medicine; Visit Provider Family Medicine
DX: E11.9 Type 2 diabetes mellitus without complications (principal); Z71.3 Dietary counseling and surveillance
CPT/HCPCS: G0109

== ENCOUNTER 2020-08-09 09:13 | Emergency (ER) | payer MEDICARE, SELFPAY ==
[2020-08-09] VITALS (23 sets, daily range): BP systolic 153–189; BP diastolic 76–97; PULSE 53–68; RESP 13–30; TEMP 36.8–37; O2SAT 95–100; BMI 32.3
--- NOTE | 2020-08-09 09:28 | ED.HA ---
HPI - Headache General Chief Complaint: Hypertension Stated Complaint: blood pressure high/pain behind eye Time Seen by Provider: 08/09/20 09:15 Source: patient Mode of arrival: Ambulatory Limitations: no limitations History of Present Illness HPI Narrative: 65-year-old male former smoker with history of hypertension and diabetes presents with a chief complaint of elevated blood pressure for the past few days. He states his numbers have been in the 170s and 180s. Additionally he has complained of some right-sided headache and right eye pain with blurring of his vision in that same time frame, it is unclear if he is able to correlate the symptoms with the BP. He admits to pain with motion of his eyes. He also has some double vision. He denies any squeezing sensation to his headache, no trouble with speech, no other focal neurologic symptoms such as numbness, weakness or tingling. He has had no chest pain or shortness of breath and denies any abdominal pain, nausea or vomiting. He denies any recent injuries or trauma. He denies any recent dietary or medication change. He denies any missed doses of his lisinopril and is otherwise well and free of complaint. MD Complaint: headache Onset (ago): day(s) Onset description: gradual Location: right Severity: moderate Quality: throbbing Relieving factors: nothing Exacerbating factors: none Context: occurred at rest Associated symptoms: none Treatments prior to arrival: none Related Data Home Medications Medication Instructions Recorded Confirmed aspirin 81 mg PO QPM 02/19/19 06/03/20 ibuprofen 800 mg PO BID 02/19/19 06/03/20 lisinopril 20 mg PO DAILY 02/19/19 06/03/20 CoQ10 PO 06/03/20 omega-3 fatty acids 100 mg mg PO 06/03/20 06/03/20 chewable tablet Previous Rx's Medication Instructions Recorded metformin 500 mg tablet 500 mg PO DAILY #90 tab 06/03/20 simvastatin 40 mg tablet 40 mg PO DAILY #90 tab 06/03/20 glucometer #1 ea 07/07/20 lancets 33 gauge #100 ea 07/07/20 test strips #100 ea 07/15/20 Allergies Allergy/AdvReac Type Severity Reaction Status Date / Time codeine [CODEINE] Allergy Intermediate Rash Verified 08/09/20 10:30 Review of Systems Constitutional Constitutional: Denies chills, Denies fatigue, Denies fever(s), Denies frequent falls, Reports headache(s), Denies lethargy and Denies weakness Eyes Eyes: Denies change in vision, Denies eye discharge, Denies irritation and Denies loss of vision ENT Ears, Nose, Mouth, and Throat: Denies change in voice, Denies dizziness, Reports headache(s), Denies neck pain, Denies sore throat and Denies throat swelling Cardiovascular Cardiovascular: Denies chest pain, Denies irregular heart rhythm, Denies lightheadedness, Denies palpitations, Denies dyspnea, Denies dyspnea on exertion and Denies orthopnea Respiratory Respiratory: Denies cough, Denies dyspnea, Denies dyspnea on exertion and Denies wheezing Gastrointestinal Gastrointestinal: Denies abdominal pain, Denies change in bowel habits, Denies diarrhea, Denies nausea and Denies vomiting Musculoskeletal Musculoskeletal: Denies neck pain and Denies numbness Integumentary/Breasts Skin/Breast: Denies pruritus, Denies erythema, Denies rash and Denies wounds Neurologic Neurologic: Denies behavioral changes, Denies confusion, Denies dizziness, Denies frequent falls, Reports headache(s), Denies loss of vision, Denies numbness, Reports other visual disturbances and Denies weakness Psychiatric Psychiatric: Denies anxiety, Denies behavioral changes, Denies confusion, Denies depression, Denies homicidal ideation and Denies suicidal ideation Endocrine Endocrine: Denies fatigue, Denies flushing and Denies palpitations Hematologic/Lymphatic Hematologic/Lymphatic: Denies easy bruising Allergic/Immunologic Allergic/Immunologic: Denies urticaria, Denies throat swelling and Denies wheezing Patient History Medical History Carpal tunnel syndrome (~2016) Chicken pox (~1962) DM2 (diabetes mellitus, type 2) Gout (~1994) History of heart attack Hyperlipidemia Mumps (~1962) Myocardial infarction Upper extremity somatic dysfunction Wears glasses Surgical History Anesthesia History of ankle surgery (~2018) History of carpal tunnel release (~2016) History of coronary angiogram History of repair of ACL (~2011) History of repair of rotator cuff History of umbilical hernia repair (~2000) Family History Father Brain aneurysm Mother Lung cancer Social History Smoking Status: Former smoker eating out: rarely or never Smoking Status: Former smoker alcohol intake frequency: holidays/special occasions only Substance Use Type: marijuana Exam Narrative Exam Narrative: GENERAL: [65] year old patient appears stated age. Well-nourished, well-developed patient, in mild distress. HEAD: Atraumatic. Normocephalic. EYES: Pupils equal round and reactive. Extraocular motions intact. No scleral icterus. No injection or drainage. No fixed pupil, watering. Right eye pressure 21. ENT: Nose without bleeding, purulent drainage. Throat without erythema, tonsillar hypertrophy or exudate. Airway patent. NECK: Trachea midline. Non tender CARDIOVASCULAR: Regular rate and rhythm without murmurs, gallops, or rubs. RESPIRATORY: Clear to auscultation. Breath sounds equal bilaterally. No wheezes, rales, or rhonchi. GASTROINTESTINAL: Abdomen soft, non-tender, nondistended. EXTREMITIES: No edema or joint tenderness. BACK: Nontender without deformity or crepitance. No flank tenderness. NEURO: AOx3. SKIN: No rash or erythema of visible areas NIH Stroke Scale 1a. LOC: Patient is alert and keenly responsive (0) 1b. LOC Questions: Patient answers both LOC questions accurately (0) 1c. LOC Commands: Patient performs both tasks correctly (0) 2. Best Gaze: Normal (0) 3. Visual: No visual loss (0) 4. Facial palsy: Normal symmetrical movements (0) 5. Motor arm: No drift (0) 6. Motor leg: No drift (0) 7. Limb ataxia: Absent (0) 8. Sensory: Normal (0) 9. Best language: No aphasia; normal (0) 10. Dysarthria: Normal (0) 11. Extinction and inattention: No abnormality (0) NIHSS: 0 Initial Vital Signs Initial Vital Signs: Vital Signs Pulse Rate 60 08/09/20 09:23 Pulse Oximetry 100 08/09/20 09:23 Course Course Course Narrative: please note visual acuity in nurses note (20/30 OS, 20/30 OD, 20/30 OU). No change in eye pain or symptoms with proparacaine drops. Right eye pressure 21mmHg. Left eye pressure 22mmHg Binocular diplopia (images on top of one another) at all distances. Normal vision with L eye only. R eye only without double vision, but blurring/hazing of vision. 1125 - No ophtho at [place] 1135 - no Optho at [place] [facility]5 - call to [facility] (Dr. Newsome) and I have discussed the case at length. The patient will need evaluation and possible advanced imaging. We discussed possibly doing CTA, but repeated exams of EOM demonstrate no appreciated abnormality and he continues to have reactive pupils. 1530 - patient BP is now 170s/180s. There continues to be no obvious direct correlation between HTN and symptoms. He arrived with BP in 180s and without intervention he dropped to the 140s/150s with no change in his symptoms. Permissive HTN until picture becomes more clear. At this point in the day we no longer have MRI either. Patient will transfer for further evaluation and definitive treatment. 1540 - patient and his understand and are in agreement with the plan. They understand that there is a strict NO VISITOR policy at [facility]. They also understand that patient could be evaluated and discharged at any point tonight. Orders Ordered: ED Orders 08/09/20 09:30 CT head/brain wo con Stat XR chest 1V Stat Complete Blood Count AUTO DIFF Stat Comprehensive Metabolic Panel Stat Lipase Stat Troponin & CK Cardiac Panel Stat EKG-12 Lead Stat 08/09/20 09:36 C-Reactive Protein Quant Stat Erythrocyte Sedimentation Rate Stat 08/09/20 11:48 COVID19 Stat 08/09/20 11:51 CT orbit BI w con Stat Discontinued Medications Sodium Chloride (Normal Saline 0.9%) 1,000 mls @ 150 mls/hr IV CONT LINDA Last Admin: 08/09/20 10:31 Dose: 150 mls/hr Documented by: LEROY Methylprednisolone 1,000 mg/ (Sodium Chloride) 258 mls @ 258 mls/hr IV NOW ONE Stop: 08/09/20 11:34 Last Infusion: 08/09/20 13:40 Dose: 0 mls/hr Documented by: Admin: 08/09/20 12:34 Dose: 258 mls/hr Documented by: LEROY Proparacaine HCl (Proparacaine 0.5% Ophth Valerie) 1 drops EYE-RIGHT NOW ONE Stop: 08/09/20 09:31 Last Admin: 08/09/20 10:31 Dose: 1 drop Documented by: LEROY Vital Signs Vital signs: Vital Signs - 8 hr 08/09/20 09:23 08/09/20 09:30 08/09/20 09:36 Temperature 98.6 F Pulse Rate 60 60 61 Respiratory Rate 18 Blood Pressure 158/83 H 189/97 H Pulse Oximetry 100 100 100 08/09/20 09:54 08/09/20 10:00 08/09/20 10:30 Temperature Pulse Rate 60 62 63 Respiratory Rate 30 H 28 H 19 Blood Pressure 158/83 H 176/89 H 158/83 H Pulse Oximetry 98 97 97 08/09/20 11:00 08/09/20 11:13 08/09/20 11:30 Temperature Pulse Rate 55 L 64 55 L Respiratory Rate 17 Blood Pressure 153/88 H 162/90 H 167/87 H Pulse Oximetry 96 98 97 08/09/20 12:00 08/09/20 12:33 08/09/20 12:34 Temperature Pulse Rate 60 65 60 Respiratory Rate 14 13 Blood Pressure 153/90 H 180/92 H Pulse Oximetry 98 99 99 08/09/20 13:00 08/09/20 13:30 08/09/20 14:00 Temperature Pulse Rate 54 L 55 L 53 L Respiratory Rate 20 16 15 Blood Pressure 155/88 H 155/81 H 162/88 H Pulse Oximetry 96 97 95 08/09/20 14:14 08/09/20 14:30 08/09/20 15:00 Temperature 98.2 F Pulse Rate 62 64 Respiratory Rate 18 20 Blood Pressure 173/84 H 181/94 H Pulse Oximetry 96 96 08/09/20 15:14 08/09/20 15:30 08/09/20 15:44 Temperature Pulse Rate 65 66 65 Respiratory Rate Blood Pressure 185/81 H 157/76 H Pulse Oximetry 98 98 96 08/09/20 16:00 08/09/20 16:03 Temperature 98.3 F Pulse Rate 64 68 Respiratory Rate 14 Blood Pressure 163/89 H Pulse Oximetry 97 96 MDM - Headache Lab Data Result diagrams: 08/09/20 09:30 08/09/20 09:30 Labs: Lab Results 08/09/20 08/09/20 08/09/20 Range/Units 09:30 09:30 09:36 WBC 7.3 (4.5-11.0) X10^3/uL RBC 4.85 (4.5-5.9) X10^6/uL Hgb 13.9 (13.5-17.5) g/dL Hct 41.0 (41-53) % MCV 84.4 (80-100) fL MCH 28.6 (26-34) PG MCHC 33.9 (30-36) % RDW 14.4 (11.6-14.8) % Plt Count 197 (150-400) X10^3/uL Neut % (Auto) 62.6 (50-75) % Lymph % (Auto) 28.0 (25-40) % Monona % (Auto) 6.0 (3-14) % Eos % (Auto) 2.2 (2-4) % Baso % (Auto) 1.2 (0-2) % Neut # (Auto) 4600 (2944-1536) /uL Lymph # (Auto) 2100 (5516-7406) /uL Monona # (Auto) 400 (0-900) /uL Eos # (Auto) 200 (0-450) /uL Baso # (Auto) 100 (0-100) /uL ESR 9 (0-15) MM/HR Sodium 140 (137-145) mmol/L Potassium 4.4 (3.4-5.1) mmol/L Chloride 110 H (98-107) mmol/L Carbon Dioxide 25 (22-32) mmol/L BUN 18 (9-20) mg/dL Creatinine 0.77 (0.66-1.25) mg/dL Estimated GFR > 60.0 (>60) mL/min BUN/Creatinine Ratio 23.4 H (6-22) Glucose 133 H (80-110) mg/dL Calcium 9.3 (8.4-10.2) mg/dL Total Bilirubin 0.3 (0.2-1.3) mg/dL AST 41 (17-59) IU/L ALT 38 (<50) IU/L Alkaline Phosphatase 104 (38-126) U/L Total Creatine Kinase 90 (55-170) U/L CK-MB (CK-2) TNP CK-MB (CK-2) Rel Index TNP Troponin I < 0.012 (0.01-0.034) ng/mL C-Reactive Protein (<1.0) mg/dL Total Protein 7.6 (6.3-8.2) g/dL Albumin 4.4 (3.5-5.0) g/dL Globulin 3.2 (1.7-4.1) g/dL Albumin/Globulin Ratio 1.4 (1.0-2.8) Lipase 141 (23-300) U/L COVID-19 PCR (Negative) 08/09/20 08/09/20 Range/Units 09:36 11:48 WBC (4.5-11.0) X10^3/uL RBC (4.5-5.9) X10^6/uL Hgb (13.5-17.5) g/dL Hct (41-53) % MCV (80-100) fL MCH (26-34) PG MCHC (30-36) % RDW (11.6-14.8) % Plt Count (150-400) X10^3/uL Neut % (Auto) (50-75) % Lymph % (Auto) (25-40) % Monona % (Auto) (3-14) % Eos % (Auto) (2-4) % Baso % (Auto) (0-2) % Neut # (Auto) (2754-2940) /uL Lymph # (Auto) (5204-3232) /uL Monona # (Auto) (0-900) /uL Eos # (Auto) (0-450) /uL Baso # (Auto) (0-100) /uL ESR (0-15) MM/HR Sodium (137-145) mmol/L Potassium (3.4-5.1) mmol/L Chloride (98-107) mmol/L Carbon Dioxide (22-32) mmol/L BUN (9-20) mg/dL Creatinine (0.66-1.25) mg/dL Estimated GFR (>60) mL/min BUN/Creatinine Ratio (6-22) Glucose (80-110) mg/dL Calcium (8.4-10.2) mg/dL Total Bilirubin (0.2-1.3) mg/dL AST (17-59) IU/L ALT (<50) IU/L Alkaline Phosphatase (38-126) U/L Total Creatine Kinase (55-170) U/L CK-MB (CK-2) CK-MB (CK-2) Rel Index Troponin I (0.01-0.034) ng/mL C-Reactive Protein < 0.5 (<1.0) mg/dL Total Protein (6.3-8.2) g/dL Albumin (3.5-5.0) g/dL Globulin (1.7-4.1) g/dL Albumin/Globulin Ratio (1.0-2.8) Lipase (23-300) U/L COVID-19 PCR Negative (Negative) Imaging Data CT scan - head: Radiologist's Impression: [address] [id number] Scan ReportSigned Patient: Darnell Goel [facility]#: [id number]: 4Acct:[id number]/Sex: 65 / MDate of Service: 08/09/20Loc: EDAccession Number: [id number] Procedure: CT head/brain wo con Ordering Provider: Carl Melchor D.O. PROCEDURE: CT HEAD/BRAIN WO CON INDICATIONS: critical elevated BP, headache, blurred vision TECHNIQUE: Noncontrast 4.5 mm thick angled axial sections acquired from the foramen magnum to the vertex, with coronal and sagittal reformats. For radiation dose reduction, the following was used: automated exposure control, adjustment of mA and/or kV according to patient size. COMPARISON: None. FINDINGS: Image quality: Excellent. CSF spaces: Basal cisterns are patent. No extra-axial fluid collections. The ventricles are symmetric in size and shape. Brain: No intracranial bleeds or masses. There is cerebral volume loss for age, with resultant ventricular and sulcal prominence. There are periventricular and deep white matter chronic small vessel ischemic changes. There is intracranial internal carotid artery atherosclerosis. Skull and face: Calvarium and visualized facial bones appear intact, without suspicious lesions. Sinuses: Visualized sinuses and mastoids are clear. IMPRESSION: 1. No acute intracranial findings. Dictated by: Jaimie Calloway M.D. on 08/09/2020 at 8:58 Approved by: Jaimie Calloway M.D. on 08/09/2020 at 9:00 CT Orbit w/contrast: Radiologist's Impression: [address] [id number] Scan ReportSigned Patient: Darnell Goel [facility]#: [id number]: 4Acct:[id number]/Sex: 65 / MDate of Service: 08/09/20Loc: EDAccession Number: [id number] Procedure: CT orbit BI w con Ordering Provider: Carl Melchor D.O. PROCEDURE: CT ORBIT BI W CON INDICATIONS: right eye pain, blurring, double vision TECHNIQUE: After the administration of intravenous contrast, 2.5 mm axial images acquired through the orbits, with coronal and sagittal reformats. For radiation dose reduction, the following was used: automated exposure control, adjustment of mA and/or kV according to patient size. COMPARISON: None. FINDINGS: Image quality: Excellent. Orbits: Globes are symmetrical. The optic nerves are normal in size and enhancement. No retrobulbar masses or fat abnormalities. The extra-ocular muscles are normal and symmetrical in appearance. Lacrimal glands are normal. Optic chiasm is normal. Periorbital soft tissues are normal. Intracranial: The pituitary gland is normal, without sellar or suprasellar masses. Visualized cerebral hemispheres, brainstem, and spinal cord appear normal. Bones and sinuses: Visualized calvarium and facial bones appear intact. Visualized sinuses and mastoids are clear. IMPRESSION: 1. No acute findings. Specifically, no intraconal, intraorbital, or preorbital findings to explain symptoms. If there is high clinical suspicion for optic neuritis, nonemergent orbital MRI could be used. Dictated by: Jaimie Calloway M.D. on 08/09/2020 at 11:41 Approved by: Jaimie Calloway M.D. on 08/09/2020 at 11:43 ECG Data Attestation: I personally reviewed and interpreted this ECG as follows: Interpretation: EKG is normal sinus rhythm mildly bradycardic rate [ 57] and free of any signs of ischemia or ectopy. No ST segmental elevation or depression. No T wave inversions Critical Care Time Critical Care Time Critical Care Time: Yes Total Critical Care Time: 35 Attestation: The high probability of a clinically significant, sudden or life threatening deterioration of the [CV/NV] system(s) required my full and direct attention, intervention and personal management. The aggregate critical care time was [35] minutes. This time is in addition to time spent performing reported procedures but includes the following: [x] Data Review and interpretation [x] Patient assessment and monitoring of vital signs [x] Documentation [x] Medication orders and management Discharge Plan Departure Patient Disposition: [facility] Clinical Impression: Binocular vision disorder with diplopia, Headache, Alteration in vision Prescriptions: No Action (DME) glucometer See Rx Instructions .Route .MEDSUPPLY Qty: 1 RF: 0 (DME) lancets 33 gauge misc See Rx Instructions .ROUTE .MEDSUPPLY Qty: 100 RF: 0 (DME) test strips See Rx Instructions .Route .MEDSUPPLY Qty: 100 RF: 0 CoQ10 1,200 mg PO RF: 0 omega-3 fatty acids 100 mg tablet,chewable PO RF: 0 simvastatin 40 mg tablet 40 mg PO DAILY Qty: 90 RF: 1 metformin 500 mg tablet 500 mg PO DAILY Qty: 90 RF: 1 lisinopril 20 mg tablet 20 mg PO DAILY RF: 0 aspirin 81 mg Tablet,Delayed Release (Dr/Ec) 81 mg PO QPM RF: 0 ibuprofen 200 mg Tablet 800 mg PO BID RF: 0 Referrals: Zander Carranza DO [Primary Care Provider] -
--- NOTE | 2020-08-09 09:30 | DI.RAD.S_ITS ---
PROCEDURE: XR CHEST 1V INDICATIONS: HTN emergency TECHNIQUE: One view of the chest was acquired. COMPARISON: [facility], , CHEST 2VW, 09/20/2014, 10:26. FINDINGS: Surgical changes and devices: None. Lungs and pleura: Lungs are clear. No pleural effusions or pneumothorax. Mediastinum: Mediastinal contours appear normal. Heart size is normal. Bones and chest wall: No suspicious bony lesions. Overlying soft tissues appear unremarkable. IMPRESSION: No acute cardiopulmonary findings. Dictated by: Jaimie Calloway M.D. on 08/09/2020 at 9:00 Approved by: Jaimie Calloway M.D. on 08/09/2020 at 9:00
[2020-08-09 09:50] LABS: Add Manual Diff / Slide Review NO; Basophils Absolute Auto 100 /uL (0-100); Basophils Percent Auto 1.2 % (0-2); Eosinophils Absolute Auto 200 /uL (0-450); Eosinophils Percent Auto 2.2 % (2-4); Hemoglobin 13.9 g/dL (13.5-17.5); Lymphocytes Absolute Auto 2100 /uL (1100-4500); Mean Corpuscular HGB Conc 33.9 % (30-36); Mean Corpuscular Hemoglobin 28.6 PG (26-34); Mean Corpuscular Volume 84.4 fL (80-100); Monocytes Absolute Auto 400 /uL (0-900); Neutrophils Absolute Auto 4600 /uL (1500-7000); Neutrophils Percent Auto 62.6 % (50-75); Platelet Count 197 X10^3/uL (150-400); Red Blood Cell Count 4.85 X10^6/uL (4.5-5.9); Red Cell Distribution Width 14.4 % (11.6-14.8); White Blood Cell Count 7.3 X10^3/uL (4.5-11.0)
[2020-08-09 09:58] LABS: Alanine Aminotransferase 38 IU/L (<50); Albumin 4.4 g/dL (3.5-5.0); Albumin Globulin Ratio 1.4 (1.0-2.8); Alkaline Phosphatase 104 U/L (38-126); Aspartate Aminotransferase 41 IU/L (17-59); BUN Creatinine Ratio 23.4 (6-22); Bilirubin Total 0.3 mg/dL (0.2-1.3); Blood Urea Nitrogen 18 mg/dL (9-20); Calcium 9.3 mg/dL (8.4-10.2); Carbon Dioxide 25 mmol/L (22-32); Chloride 110 mmol/L (98-107); Creatine Kinase 90 U/L (55-170); Estimated Glomerular Filt Rate > 60.0 mL/min (>60); Globulin 3.2 g/dL (1.7-4.1); Glucose 133 mg/dL (80-110); HEMOLYSIS < 15 (0-50); Lipase 141 U/L (23-300); Potassium 4.4 mmol/L (3.4-5.1); Sodium 140 mmol/L (137-145); Total Protein 7.6 g/dL (6.3-8.2)
[2020-08-09 10:08] LABS: Troponin I < 0.012 ng/mL (0.01-0.034)
[2020-08-09] MEDS: SODIUM CHLORIDE 0.9% 1,000 ML 150 ML IV (10:31)
[2020-08-09] MEDS: PROPARACAINE 0.5% OPHTH SOL 1 DROPS EYE-RIGHT (10:31)
[2020-08-09 11:32] LABS: C-Reactive Protein Quant < 0.5 mg/dL (<1.0)
[2020-08-09 11:44] LABS: Erythrocyte Sedimentation Rate 9 MM/HR (0-15)
--- NOTE | 2020-08-09 11:51 | DI.CT.S_ITS ---
PROCEDURE: CT ORBIT BI W CON INDICATIONS: right eye pain, blurring, double vision TECHNIQUE: After the administration of intravenous contrast, 2.5 mm axial images acquired through the orbits, with coronal and sagittal reformats. For radiation dose reduction, the following was used: automated exposure control, adjustment of mA and/or kV according to patient size. COMPARISON: None. FINDINGS: Image quality: Excellent. Orbits: Globes are symmetrical. The optic nerves are normal in size and enhancement. No retrobulbar masses or fat abnormalities. The extra-ocular muscles are normal and symmetrical in appearance. Lacrimal glands are normal. Optic chiasm is normal. Periorbital soft tissues are normal. Intracranial: The pituitary gland is normal, without sellar or suprasellar masses. Visualized cerebral hemispheres, brainstem, and spinal cord appear normal. Bones and sinuses: Visualized calvarium and facial bones appear intact. Visualized sinuses and mastoids are clear. IMPRESSION: 1. No acute findings. Specifically, no intraconal, intraorbital, or preorbital findings to explain symptoms. If there is high clinical suspicion for optic neuritis, nonemergent orbital MRI could be used. Dictated by: Jaimie Calloway M.D. on 08/09/2020 at 11:41 Approved by: Jaimie Calloway M.D. on 08/09/2020 at 11:43
[2020-08-09 12:17] LABS: COVID19 -Nasal RAPID Negative (Negative)
[2020-08-09] MEDS: methylPREDNISolone 1,000 MG in SODIUM CHLORIDE 0.9% 250 ML 258 ML IV (12:34)
--- NOTE | 2020-10-09 14:50 | PC.NURSE ---
1000ml NS at rate of 150ml/hr started at 1031. Fluid ran during pt stay and sent for transfer with [facility] to [facility]. 900ml infused.
== END 2020-08-09 16:16 | disposition short-term general hospital (02) ==
PROVIDERS: Emergency Provider Emergency Medicine; PCP Family Medicine
DX: H53.2 Diplopia (principal); H54.7 Unspecified visual loss; E11.9 Type 2 diabetes mellitus without complications; R51.9 Headache, unspecified; H57.11 Ocular pain, right eye; E78.5 Hyperlipidemia, unspecified; I25.2 Old myocardial infarction
CPT/HCPCS: 36415; 70450; 70481; 71045; 80053; 82550; 83690; 84484; 85025; 85651; 86140; 87635; 93005; 96361; 96365; 99284; 99291; J2930; Q9967

== ENCOUNTER → 2020-08-18 09:53 | Outpatient (CLI) | payer MEDICARE, SELFPAY ==
[2020-08-18 10:46] VITALS: BMI 32.0
--- NOTE | 2020-08-18 10:46 | DIET.PN ---
DIABETES Nutrition Initial Assessment:? ASSESS:?? Mr. Goel is a 65 yom??referred for type 2 diabetes seen as part of DSME program. He reports recent visit to the ED for right eye pressure with headaches, which sent him to [place]. He believes this to possibly be related to his diabetes. He continues to eat only 1 meal per day, but has made some changes to food choices. He has been monitoring his fasting blood glucose. He has not started exercising yet. ??? LABS: Per pt report:? no change [id number] ? MEDS:??metformin 500mg am ? DIET: Per 24-hour recall:? 1 meal/day: soup/crackers; oatmeal; keto chips; sandwich Eating Out: rarely or never Changes in Appetite: no change Nutrition Supplements: metamusil ? Weight: 199lb Height: 66in BMI: ? Exercise:? not at this time NUTRITION DX 1. Altered Nutrition related labs related to impaired glucose metabolism, lack of previous exposure to accurate nutrition information as evidenced by pt report, dx of diabetes, previous diet high in refined carbohydrates.? INTERVENTION(s): 1. Reviewed pathophysiology of diabetes and impact of nutrition/diet on blood sugar control.? Discussed fed versus non-fed state.?? 2. Discussed the effect of carbohydrates/protein/fat on blood sugar control.? Stressed importance of consistent carbohydrate intake at each meal and provided instructions for recommended servings/portions of carbohydrates/protein per meal. Provided pt with educational material. 3. Reviewed carbohydrate counting and measuring carbohydrate content via serving sizes and reading nutrition labels.? Provided handouts.?? 4. Stressed importance of meal timing and not going >4-5 hours between meals. 5. Discussed healthy weight loss goals of 1-2lbs per week through diet and exercise.? Recommeneded walking at least 30 minutes daily. 6. Recommend monitoring fasting and alternating 2 hr PP mealtime glucose. MONITOR/EVALUATE: Anticipate good compliance.? Nutrition follow-up scheduled for 1 month.
== END ==
PROVIDERS: PCP Family Medicine; Referring Provider Family Medicine; Visit Provider Family Medicine
DX: E11.65 Type 2 diabetes mellitus with hyperglycemia (principal); Z71.3 Dietary counseling and surveillance
CPT/HCPCS: G0109

== ENCOUNTER → 2020-08-22 09:48 | Outpatient (CLI) | payer MEDICARE, SELFPAY ==
[2020-08-22 10:13] LABS: Hemoglobin A1C% w Est Avg Glu 7.5 % (4.0-6.0)
[2020-08-22 10:26] LABS: Cholesterol 222 mg/dL (140-199); HDL Cholesterol 39 mg/dL (40-60)
[2020-08-22 10:36] LABS: Triglycerides 646 mg/dL (35-150)
== END ==
PROVIDERS: PCP Family Medicine; Referring Provider Family Medicine; Visit Provider Family Medicine
DX: E11.9 Type 2 diabetes mellitus without complications (principal); E78.5 Hyperlipidemia, unspecified
CPT/HCPCS: 36415; 80061; 83036

== ENCOUNTER → 2020-10-26 07:55 | Outpatient (CLI) | payer MEDICARE, SELFPAY ==
[2020-10-26] MEDS: COVID-19 VACC, Ad26(JANSSEN)/PF 0.5 ML IM (08:06)
== END ==
PROVIDERS: PCP Family Medicine; Visit Provider Internal Medicine
DX: Z23 Encounter for immunization (principal)
CPT/HCPCS: 0031A; 91303

== ENCOUNTER → 2021-01-22 08:30 | Outpatient (CLI) | payer MEDICARE, SELFPAY ==
[2021-01-22 09:11] LABS: Add Manual Diff / Slide Review NO; Basophils Absolute Auto 100 /uL (0-100); Basophils Percent Auto 1.1 % (0-2); Eosinophils Absolute Auto 100 /uL (0-450); Eosinophils Percent Auto 2.1 % (2-4); Hematocrit 38.5 % (41-53); Hemoglobin 13.1 g/dL (13.5-17.5); Lymphocytes Absolute Auto 1900 /uL (1100-4500); Lymphocytes Percent Auto 30.5 % (25-40); Mean Corpuscular Hemoglobin 28.8 PG (26-34); Mean Corpuscular Volume 84.6 fL (80-100); Monocytes Absolute Auto 400 /uL (0-900); Monocytes Percent Auto 6.5 % (3-14); Neutrophils Absolute Auto 3700 /uL (1500-7000); Neutrophils Percent Auto 59.8 % (50-75); Platelet Count 241 X10^3/uL (150-400); Red Blood Cell Count 4.56 X10^6/uL (4.5-5.9); Red Cell Distribution Width 13.8 % (11.6-14.8); White Blood Cell Count 6.3 X10^3/uL (4.5-11.0)
[2021-01-22 09:15] LABS: Hemoglobin A1C% w Est Avg Glu 6.7 % (4.0-6.0)
[2021-01-22 09:21] LABS: Alanine Aminotransferase 18 IU/L (<50); Albumin 4.2 g/dL (3.5-5.0); Albumin Globulin Ratio 1.5 (1.0-2.8); Alkaline Phosphatase 84 U/L (38-126); Aspartate Aminotransferase 23 IU/L (17-59); BUN Creatinine Ratio 17.4 (6-22); Bilirubin Total 0.3 mg/dL (0.2-1.3); Blood Urea Nitrogen 15 mg/dL (9-20); Calcium 9.8 mg/dL (8.4-10.2); Carbon Dioxide 25 mmol/L (22-32); Chloride 109 mmol/L (98-107); Cholesterol 191 mg/dL (140-199); Estimated Glomerular Filt Rate > 60.0 mL/min (>60); Globulin 2.8 g/dL (1.7-4.1); Glucose 126 mg/dL (80-110); HDL Cholesterol 47 mg/dL (40-60); HEMOLYSIS < 15 (0-50); LDL Cholesterol Calculated 106 mg/dL (<100); Potassium 5.2 mmol/L (3.4-5.1); Sodium 140 mmol/L (137-145); Triglycerides 190 mg/dL (35-150)
[2021-01-22 09:49] LABS: Prostate Specific Antigen 1.14 ng/mL (0.10-4.00)
== END ==
PROVIDERS: PCP Family Medicine; Referring Provider Family Medicine; Visit Provider Family Medicine
DX: E11.9 Type 2 diabetes mellitus without complications (principal); Z12.5 Encounter for screening for malignant neoplasm of prostate; E78.1 Pure hyperglyceridemia; E78.5 Hyperlipidemia, unspecified; I10 Essential (primary) hypertension
CPT/HCPCS: 36415; 80053; 80061; 83036; 84153; 85025; G0103

== ENCOUNTER → 2021-03-22 13:37 | Outpatient (CLI) | payer MEDICARE, SELFPAY ==
--- NOTE | 2021-03-22 | DI.RAD.S_ITS ---
PROCEDURE: XR SKULL<4V INDICATIONS: FOREIGN BODY IN EYE, RIGHT, SEQUELA TECHNIQUE: 3 view(s) of the skull acquired. COMPARISON: [facility], CT, CT ORBIT BI Lyndsey MANZO, 08/09/2020, 12:09. FINDINGS: Bones: No fractures. No suspicious bony lesions. Visualized sinuses appear clear. Metallic wire appearing structures, likely postsurgical are noted overlying the maxilla as well as portions of the mandible. Soft tissues: There is a mild appearance of increased calcific like density overlying the right orbit compared to the left.. No suspicious soft tissue densities. IMPRESSION: 1. Mild appearance of increased calcific like density overlying the right orbit. This could be projectional as it is only seen in one view. If this remains of concern, CT orbit is recommended for further evaluation. No radiopaque foreign body. Dictated by: Zarina Dinh M.D. on 03/22/2021 at 15:07 Approved by: Zarina Dinh M.D. on 03/22/2021 at 15:10
== END ==
PROVIDERS: PCP Family Medicine; Referring Provider Psychiatry & Neurology Neurology; Visit Provider Psychiatry & Neurology Neurology
DX: T15.9 Foreign body on external eye, part unspecified (principal)
CPT/HCPCS: 70250

== ENCOUNTER → 2021-06-30 08:05 | Outpatient (CLI) | payer MEDICARE, SELFPAY ==
--- NOTE | 2021-06-30 08:07 | DI.RAD.S_ITS ---
PROCEDURE: FL BARIUM SWALLOW W SPEECH INDICATIONS: Other dysphagia COMPARISON: None. TECHNIQUE: Examination was conducted in conjunction with speech pathology per standard protocol. In the lateral projection, filming was performed of the patient swallowing. AP projection filming may also be performed with patient swallowing. COMPARISON: FINDINGS: Function: The oral preparatory phase appears normal, with proper containment. The subsequent oral propulsive phase, pharyngeal phase, and esophageal phase of swallowing also appear normal with all proffered substances. There was silent laryngeal penetration to level of the cords, with serial thin liquid barium swallows. Mild esophageal dysmotility noted. Morphology: No cricopharyngeal bar is identified. No cervical esophageal webs. No Zenker's diverticulum. No strictures. IMPRESSION: Silent laryngeal penetration as above Dictated by: Shabbir Verma M.D. on 06/30/2021 at 10:14 Approved by: Shabbir Verma M.D. on 06/30/2021 at 10:17
--- NOTE | 2021-06-30 13:33 | ST.SWALLOW ---
Visit Care Team Role Provider Type Zander Carranza DO Primary Care Provider Physician Specialty: Family Practice Address: [address] [place] [address], [id number] Email: Damian Rodriguez MD Attending Provider Physician Referring Provider Specialty: Ear, Nose, Throat Address: [address] [place] [address], [id number] Email: [email or web address] Modified Barium Swallow Study EMERGENCY ROOM REGISTERED NURSE Modified Barium Swallow Study Start: 06/30/21 09:53 Freq: Status: Active Protocol: Document 06/30/21 09:53 ALCIDES (Rec: 06/30/21 10:16 ALCIDES [id number]) Modified Barium Swallow Study Total Time Visit Start Time 08:30 Visit Stop Time 09:10 Total Visit Minutes [address] Damian Rodriguez Reason for Referral Dysphagia Setting Setting Outpatient Care Patient Information Identification Type Name,ID Card Patient History The pt is a 66-yr-old male with complaints of a lump inside my voicebox and a frequent constricted feeling when swallowing solids, to the extent that he sometimes cannot swallow and spits food out. PMHx is significant for vocal fold polyp or nodule ~50 yrs ago, when the pt had the same sensation of a lump in the same area. At that time, the polyp/nodule popped off during biopsy procedure, per pt report, was found to be benign, and the problem was resolved. Approximately 1 year ago, the same sensation returned, along with swallow problems as described. The pt was seen by ENT, who performed mirror imaging of VFs which did not reveal a pathology, and referral was made for MBS for evaluation of swallow. Subjective Observations The pt arrived on time and was informed of purpose and procedure of MBS. He was agreeable to proceed. He provided case history supplemental to medical records. Patient Positioning Position View Lat-A/P Imaging Lateral View Textures Administered Trials Presented Thin Liquid via Spoon,Thin Liquid via Cup,[place] Liquid via Spoon,[place] Liquid via Cup,Honey Liquid via Spoon, Dysphagia Blenderized Textures ,Regular Textures Oral Phase Source: MBSIMP (TM) (C) Bolus Specific Scoring Grid Lip Closure No Impairment (WNL) Tongue Control During Bolus Hold Minimal Impairment Bolus Prep/Mastication No Impairment (WNL) Bolus Transport/Lingual Motion Minimal Impairment A/P Lingual Propulsion Delay Yes Number of Seconds Delayed (seconds) x2 w/ thin & NTL liquid escape to vallecula prior to swallow trigger Oral Residue WFL Residue Clearing No Impairment (WNL) Nasal Regurgitation No Additional Oral Phase Observations The pt has symmetrical facial and oral features WNL of strength, coordination and ROM. He wears upper and lower partials and reported lower right partial is loose and often moves during mastication. This was not observed and did not interfere with oral prep of today's trials. Swallow trigger was timely with the exception of early escape of one thin liquid trial and one NTL trial to the vallecula prior to trigger. Pharyngeal Phase Source: MBSIMP (TM) (C) Bolus Specific Scoring Grid Delayed Initiation of Pharyngeal Swallow Yes Number of Seconds Delayed (seconds) x2 w/ thin & NTL liquid escape to vallecula prior to swallow trigger Soft Palate Elevation No Impairment (WNL) Tongue Base Strength/Range of Motion Mild Impairment Residue Along the Tongue Base No Laryngeal Elevation Mild Impairment Anterior Hyoid Movement Mild Impairment Epiglottic Range of Motion WFL Vallecular Residue Yes: Trace to mild with liquids only Clearance of Vallecular Residue WFL Laryngeal Vestibular Closure Mild Impairment Pharyngeal Stripping Wave Mild Impairment Posterior Pharyngeal Wall Residue No Upper Esophageal Sphincter Opening Moderate Impairment Residue in the Pyriform Sinuses Yes: Trace to mild with liquids only Clearance of Residue in the Pyriform WFL Sinuses Esophageal Clearance Upright Position Mild Impairment Pharyngoesophageal Backflow Observed No Additional Pharyngeal Phase Observations Flash penetration to level of VFs (PAS 4) was observed during consecutive sips of thin liquid (x2 trials), silent in nature. No aspiration was observed. Pharyngeal stripping was diminished, though adequate for pharyngeal bolus transport. Trace to mild residue at vallecula and pyriform sinuses was observed with thin and NTL trials. Pt exhibited complete pharyngeal clearance of HTL, paste, and cookie trials. UES opening was reduced in both distention and duration, impacted significantly by tissue that protruded from the posterior of the pharynx. It was difficult to determine if this was an impaired UES or a cricopharyngeal bar, as it was only intermittently visible. Additionally, moderately prominant osteophytes were observed at C4-C5 and C5-C6 (the pt's shoulder blocked viewing of C7). These features may account for the pt's constricting sensation and difficulty swallowing solids, although HTL, paste, and cookie trials passed through the UES completely, leaving no pharyngeal residue. The pt may benefit from GI consultation for assessment of UES. Hyolaryngeal elevation and anterior protrusion were mildly diminished. No structural abnormalities within the larynx were visible to account for the pt's sensation of a lump in the voicebox. Videostroboscopy is recommended for further evaluation. A/P View Textures Administered Trials Presented Barium Tablet A/P View Observations Esophageal Function Slowed Clearing Additional Observations Upon initial A/P viewing of esophagus, significant barium was observed above the LES. This cleared with intake of thin liquid, and the 13mm barium tablet passed through esophagus into the stomach without delay. Again, the pt may benefit from GI consultation for assessment of the LES. Clinical Impressions Dysphagia Type Mild Pharyngeal Dysphagia Findings The pt presents with mild pharyngeal dysphagia characterized by reduced pharyngeal stripping wave, hyolaryngeal elevation/ anterior propulsion, and airway closure, allowing for silent flash penetration of thin liquids during consecutive sips and trace to mild residue of liquids at vallecula and pyriform sinuses. He exhibited excellent pharyngeal clearance of trials consisting of greater bulk. Suspect years of smoking may have reduced laryngeal sensation, leading to silent nature of laryngeal penetration. Given the pt's history of smoking and VF pathology, videostroboscopy is recommended for further assessment of VF health and function. GI consultation is recommended for evaluation of upper and lower esophageal sphincters, cricopharyngeal bar if present, and esophageal paristalsis. Rehabilitation Potential Excellent Patient Appropriate for Therapy The pt may benefit from a short course of dysphagia therapy Recommendations Diet Liquids Order Thin Diet Order Regular Medication Recommendation As Tolerated Additional Dietary Needs Single Sips Aspiration Precautions Recommended Precautions Upright at 90 Degrees,Small Bites/Sips Treatment Plan Therapy Recommendations Outpatient Speech Therapy Additional Therapy Recommendations A short course may increase strength & ROM of pharyngeal musculature Recommended Referrals GI Consult,ENT Consult Additional Recommended Referrals GI evaluation of esophageal sphincters; Videostroboscopy of VFs. Compensatory Strategies Recommendations Sitting Upright (90 deg),Small Bites and Sips Short Term Goals Education and training of exercises to increase strength of pharyngeal musculature to protect airway and increase pt comfort during oral intake. Residential Goals Swallow function and ease WNL.
== END ==
PROVIDERS: PCP Family Medicine; Referring Provider Otolaryngology; Visit Provider Otolaryngology
DX: R13.19 Other dysphagia (principal); K22.4 Dyskinesia of esophagus
CPT/HCPCS: 74230; 92611

== ENCOUNTER 2021-09-07 19:05 | Emergency (ER) | payer OTHER, SELFPAY ==
[2021-09-07 19:32] VITALS: BP 118/69; PULSE 79; RESP 15; TEMP 36.1; O2SAT 99; BMI 29.8
[2021-09-07 21:02] VITALS: BP 121/70; PULSE 66; TEMP 36.8; O2SAT 99
--- NOTE | 2021-09-07 21:14 | ED_ITS ---
HPI - Extremity Problem General Chief complaint: Extremity Problem,Nontraumatic Stated complaint: LEFT ELBOW SWELLING WARM HOT RED Time Seen by Provider: 09/07/21 21:08 Source: patient Mode of arrival: Ambulatory History of Present Illness HPI Narrative: Patient here with . Possible insect to the left elbow that started on Monday. Increased redness. No pain. No limited range of motion of the elbow on the left side. Has increased redness since yesterday. Patient not toxic. No history of cellulitis. No history of bursitis Related Data Home Medications Medication Instructions Recorded Confirmed aspirin 81 mg tablet,delayed 81 mg PO QPM 02/19/19 05/14/21 release ibuprofen 200 mg tablet 800 mg PO BID 02/19/19 05/14/21 CoQ10 PO 06/03/20 05/14/21 omega-3 fatty acids 100 mg mg PO 06/03/20 05/14/21 chewable tablet Previous Rx's Medication Instructions Recorded glucometer #1 ea 07/07/20 lancets 33 gauge #100 ea 07/07/20 test strips #100 ea 09/03/20 fenofibrate 54 mg tablet 54 mg PO DAILY #90 tab 03/15/21 metformin 500 mg tablet See Rx Instructions .ROUTE 05/18/21 .COMPLEX #90 tab simvastatin 40 mg tablet See Rx Instructions .ROUTE 06/09/21 .COMPLEX #90 tab lisinopril 20 mg tablet See Rx Instructions .ROUTE 08/16/21 .COMPLEX #90 tab doxycycline monohydrate 100 mg 100 mg PO BID #14 cap 09/07/21 capsule Allergies Allergy/AdvReac Type Severity Reaction Status Date / Time codeine [CODEINE] Allergy Intermediate Rash Verified 09/07/21 19:36 Review of Systems Review of Systems Narrative: GENERAL: Denies chills, fatigue, malaise, fever, sweats. 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 DM2 (diabetes mellitus, type 2) Dysphagia Gout (~1994) History of heart attack Hyperlipidemia Hypertriglyceridemia Mumps (~1962) Myocardial infarction Upper extremity somatic dysfunction Wears glasses Surgical History Anesthesia History of ankle surgery (~2018) History of carpal tunnel release (~2016) History of coronary angiogram History of repair of ACL (~2011) History of repair of rotator cuff History of umbilical hernia repair (~2000) History of vocal cord polypectomy Family History Father Brain aneurysm Mother Lung cancer Social History Smoking Status: Former smoker eating out: rarely or never Smoking Status: Former smoker alcohol intake frequency: holidays/special occasions only Substance Use Type: does not use Exam Narrative Exam Narrative: GENERAL: in no distress, not toxic not dyspneic HEAD: Normocephalic. EXTREMITIES: No gross deformities. Examination left upper extremity. Elbow to fingertips exposed. Full active range of motion at elbow and wrist. Strong technical agronomist. Light touch intact to thumb and fingers. There is erythema that starts at the olecranon and spreads proximally 4 cm and distally 8 cm does not cover the antecubital space. No palpable abscess. No induration. Surgical marker used to outline tonight's margins. NEURO: AOx4. SKIN: Warm and dry PSYCH: Not anxious, is cooperative Initial Vital Signs Initial Vital Signs: Vital Signs Temperature 97 F L 09/07/21 19:32 Pulse Rate 79 09/07/21 19:32 Respiratory Rate 15 09/07/21 19:32 Blood Pressure 118/69 09/07/21 19:32 Pulse Oximetry 99 09/07/21 19:32 Course Course Course Narrative: No new issues during course of stay Orders Ordered: Discontinued Medications Doxycycline Hyclate (Doxycycline Hyclate 100 Mg Tablet) 100 mg PO NOW ONE Stop: 09/07/21 21:15 Last Admin: 09/07/21 21:30 Dose: 100 mg Documented by: FAISAL Reevaluation(s) Reevaluation #1: Reviewed diagnosis with patient and agrees for treatment at home with antibiotics. No blood work indicated no imaging indicated. Return precautions reviewed with them Time: :22 Vital Signs Vital signs: Vital Signs - 8 hr 09/07/21 19:32 09/07/21 21:02 Temperature 97 F L 98.2 F Pulse Rate 79 66 Respiratory Rate 15 Blood Pressure 118/69 121/70 Pulse Oximetry 99 99 MDM - Extremity (Nontraumatic) Differential Diagnosis Differential diagnosis: Likely gout and cellulitis MDM Narrative Medical decision making narrative: Appropriate for discharge home. No blood work or imaging indicated. Exam reassuring. No signs of abscess. Not bursitis. Not septic joint. No fever. Has full active range of motion without any pain. Return precautions reviewed with patient and . They desire discharge home. Discharge Plan Departure Patient Disposition: Home Clinical Impression: Cellulitis Instructions: DI for Cellulitis -- Adult Activity Restrictions/Additional Instructions: See family doctor in a week for recheck. Return if worsening questions or concerns or if he develops any fever or inability to move your elbow. Prescription for antibiotic has been sent to your pharmacy. Prescriptions: New doxycycline monohydrate 100 mg capsule 100 mg PO BID Qty: 14 0RF No Action (DME) glucometer See Rx Instructions .Route .MEDSUPPLY Qty: 1 0RF Rx Instructions: As directed (DME) lancets 33 gauge misc See Rx Instructions .ROUTE .MEDSUPPLY Qty: 100 0RF Rx Instructions: As directed fenofibrate 54 mg tablet 54 mg PO DAILY Qty: 90 1RF metformin 500 mg tablet See Rx Instructions .ROUTE .COMPLEX Qty: 90 1RF Dose Instruction: take 1 tablet by mouth once daily Rx Instructions: take 1 tablet by mouth once daily simvastatin 40 mg tablet See Rx Instructions .ROUTE .COMPLEX Qty: 90 0RF Dose Instruction: take 1 tablet by mouth once daily Rx Instructions: take 1 tablet by mouth once daily lisinopril 20 mg tablet See Rx Instructions .ROUTE .COMPLEX Qty: 90 0RF Dose Instruction: take 1 tablet by mouth once daily Rx Instructions: take 1 tablet by mouth once daily CoQ10 1,200 mg PO 0RF omega-3 fatty acids 100 mg tablet,chewable PO 0RF (DME) test strips See Rx Instructions .Route .MEDSUPPLY Qty: 100 11RF Rx Instructions: twice daily blood glucose testing aspirin 81 mg Tablet,Delayed Release (Dr/Ec) 81 mg PO QPM 0RF ibuprofen 200 mg Tablet 800 mg PO BID 0RF Referrals: Zander Carranza DO [Primary Care Provider] -
--- NOTE | 2021-09-07 21:14 | PC.NURSE ---
pt states he noticed his elbow red and swollen Sat, states the elbow is not painful it is just red, swollen and hot to touch and the signs are increasing
[2021-09-07] MEDS: DOXYCYCLINE HYCLATE 100 MG TABLET PO (21:30)
== END 2021-09-07 21:34 | disposition home or self-care (01) ==
PROVIDERS: Emergency Provider Emergency Medicine; PCP Family Medicine
DX: L03.114 Cellulitis of left upper limb (principal)
CPT/HCPCS: 99283

== ENCOUNTER 2022-05-09 14:43 | Emergency (ER) | payer OTHER, SELFPAY ==
[2022-05-09] VITALS (7 sets, daily range): BP systolic 89–118; BP diastolic 61–71; PULSE 64–91; RESP 14–34; TEMP 36.6; O2SAT 97–99; BMI 29.8
--- NOTE | 2022-05-09 15:00 | DI.RAD.S_ITS ---
PROCEDURE: XR CHEST 1V INDICATIONS: chest pain TECHNIQUE: One view of the chest was acquired. COMPARISON: [facility], CR, XR CHEST 1V, 08/09/2020, 9:34. FINDINGS: Surgical changes and devices: None. Lungs and pleura: Lungs are clear. No pleural effusions or pneumothorax. Mediastinum: The cardiac contours are within normal limits. The aorta demonstrates calcification and tortuosity. Bones and chest wall: No suspicious bony lesions. Age-appropriate bony degenerative changes are seen. Overlying soft tissues appear unremarkable. IMPRESSION: Portable chest study within normal limits for age. Dictated by: Juvenal Smith M.D. on 05/09/2022 at 14:13 Approved by: Juvenal Smith M.D. on 05/09/2022 at 14:13
[2022-05-09 15:58] LABS: Add Manual Diff / Slide Review NO; Basophils Absolute Auto 100 /uL (0-100); Basophils Percent Auto 1.1 % (0-2); Eosinophils Absolute Auto 100 /uL (0-450); Eosinophils Percent Auto 0.7 % (2-4); Hematocrit 40.5 % (41-53); Hemoglobin 13.9 g/dL (13.5-17.5); Lymphocytes Absolute Auto 1600 /uL (1100-4500); Lymphocytes Percent Auto 19.1 % (25-40); Mean Corpuscular HGB Conc 34.4 % (30-36); Mean Corpuscular Hemoglobin 28.4 PG (26-34); Mean Corpuscular Volume 82.6 fL (80-100); Monocytes Absolute Auto 500 /uL (0-900); Monocytes Percent Auto 5.9 % (3-14); Neutrophils Absolute Auto 6300 /uL (1500-7000); Neutrophils Percent Auto 73.2 % (50-75); Platelet Count 255 X10^3/uL (150-400); Red Cell Distribution Width 13.7 % (11.6-14.8); White Blood Cell Count 8.5 X10^3/uL (4.5-11.0)
[2022-05-09 15:59] LABS: Alanine Aminotransferase 20 IU/L (<50); Albumin 4.7 g/dL (3.5-5.0); Albumin Globulin Ratio 1.3 (1.0-2.8); Alkaline Phosphatase 82 U/L (38-126); Aspartate Aminotransferase 27 IU/L (17-59); Bilirubin Total 0.7 mg/dL (0.2-1.3); Blood Urea Nitrogen 18 mg/dL (9-20); Calcium 9.7 mg/dL (8.4-10.2); Carbon Dioxide 19 mmol/L (22-32); Chloride 106 mmol/L (98-107); Creatine Kinase 135 U/L (55-170); Estimated Glomerular Filt Rate 46 mL/min (>60); Globulin 3.5 g/dL (1.7-4.1); Glucose 106 mg/dL (80-110); HEMOLYSIS < 15 (0-50); Lipase 108 U/L (23-300); Potassium 4.2 mmol/L (3.4-5.1); Sodium 139 mmol/L (137-145); Total Protein 8.2 g/dL (6.3-8.2)
[2022-05-09 16:11] LABS: Troponin I 0.016 ng/mL (0.01-0.034)
[2022-05-09 16:15] LABS: CKMB % Relative Index 0.6 % (1.5-5.0); Creatine Kinase MB 0.77 ng/mL (<2.37)
[2022-05-09 17:58] LABS: Troponin I 0.033 ng/mL (0.01-0.034)
[2022-05-09 18:05] LABS: NT-proBNP (BNP-Adult 18+) 55 pg/mL (<125)
[2022-05-09] MEDS: SODIUM CHLORIDE 0.9% 1,000 ML 1000 ML IV (18:11)
[2022-05-09 18:27] LABS: D Dimer 847 ng/ml (<500)
--- NOTE | 2022-05-09 18:31 | DI.CT.S_ITS ---
PROCEDURE: CT ANGIO CHEST PE PROTOCOL INDICATIONS: SOB, elev dimer TECHNIQUE: After the administration of intravenous contrast, 2 mm thick sections acquired from the pulmonary apices to the posterior costophrenic angles. 3-dimensional maximum intensity projection (MIP) coronal and sagittal reformats were then acquired through the thorax. For radiation dose reduction, the following was used: automated exposure control, adjustment of mA and/or kV according to patient size. COMPARISON: [facility], CR, XR CHEST 1V, 05/09/2022, 15:03. FINDINGS: Image quality: Excellent. Pulmonary arteries: Pulmonary arteries are normal in size, and demonstrate no intraluminal filling defects to suggest central pulmonary embolism. Lungs and pleura: No acute consolidation or acute GGO. No pleural effusion or pneumothorax. Central and peripheral airways are patent. Scattered small lung cysts. Mediastinum: Heart size is normal, without pericardial effusion. No mediastinal or hilar adenopathy. Thoracic aorta is normal in caliber and enhancement. Esophagus is normal in caliber, without hiatal hernia. Coronary and aortic atherosclerosis noted. Bones and chest wall: No suspicious bony lesions. Ribs and thoracic spine appear intact throughout. No axillary or supraclavicular adenopathy. Abdomen: Visualized upper abdominal solid organs appear normal in the early arterial phase of enhancement. IMPRESSION: No pulmonary embolism or other acute finding in the chest. Dictated by: Philippe Obregon M.D. on 05/09/2022 at 19:29 Approved by: Philippe Obregon M.D. on 05/09/2022 at 19:37
--- NOTE | 2022-05-09 18:51 | ED.CHESTPAIN ---
HPI - Chest Pain <Keaton Kelsey PA-C - Last Filed: 05/09/22 20:39> General Chief Complaint: Chest Pain Stated Complaint: Thinks cardiac episode, Heart attack in Time Seen by Provider: 05/09/22 15:14 Source: patient Mode of arrival: Ambulatory Limitations: no limitations History of Present Illness HPI narrative: 67-year-old male with past medical history [place], diabetes, hyperlipidemia, hypertension presents to the ED with 1 day of shortness of breath, lightheadedness, diaphoresis, tachycardia, hypotension. Patient states he was in the [place] ra[place], when he started experiencing the symptoms, took his home blood pressure and it was 88/60, patient took a shower felt somewhat better but still continued having the shortness of breath and hypotension, following which he presented to the ED. patient denies chest pain, fever, chills, cough, rhinorrhea, sore throat, nausea, vomiting, dysuria, syncope. Patient states that he had a heart attack back in 2005 and 2006, and today symptoms feel very similar to those episodes. Patient states he has also been having these types of episodes more often, about every 2 weeks. However, today's episode has been the most severe. Patient denies being dehydrated. Denies prior history of PE or DVT. Related Data Home Medications Medication Instructions Recorded Confirmed aspirin 81 mg tablet,delayed 81 mg PO QPM 02/19/19 05/14/21 release ibuprofen 200 mg tablet 800 mg PO BID 02/19/19 05/14/21 CoQ10 PO 06/03/20 05/14/21 omega-3 fatty acids 100 mg mg PO 06/03/20 05/14/21 chewable tablet Previous Rx's Medication Instructions Recorded glucometer #1 ea 07/07/20 lancets 33 gauge #100 ea 07/07/20 doxycycline monohydrate 100 mg 100 mg PO BID #14 caps 09/07/21 capsule blood sugar diagnostic (True #100 strips 12/14/21 Metrix Glucose Test Strip) lisinopril 20 mg tablet See Rx Instructions .Route 02/16/22 .COMPLEX #90 tabs fenofibrate 54 mg tablet See Rx Instructions .Route 02/28/22 .COMPLEX #90 tabs metformin 500 mg tablet See Rx Instructions .Route 02/28/22 .COMPLEX #90 tabs simvastatin 40 mg tablet See Rx Instructions .Route 03/24/22 .COMPLEX #90 tabs Allergies Allergy/AdvReac Type Severity Reaction Status Date / Time codeine [CODEINE] Allergy Intermediate Rash Verified 09/07/21 19:36 Review of Systems <Keaton Kelsey PA-C - Last Filed: 05/09/22 20:39> Review of Systems ROS Unobtainable: All systems reviewed & are unremarkable except as noted in HPI and below Constitutional Constitutional: Denies chills, Reports excessive sweating, Denies fatigue, Denies fever(s), Denies frequent falls, Denies lethargy and Denies weakness Eyes Eyes: Denies change in vision, Denies eye discharge, Denies irritation and Denies loss of vision ENT Ears, Nose, Mouth, and Throat: Denies change in voice, Denies dizziness, Denies neck pain, Denies sore throat and Denies throat swelling Cardiovascular Cardiovascular: Denies chest pain, Denies irregular heart rhythm, Reports lightheadedness, Denies palpitations, Reports dyspnea, Denies dyspnea on exertion and Denies orthopnea Respiratory Respiratory: Denies cough, Reports dyspnea, Denies dyspnea on exertion and Denies wheezing Gastrointestinal Gastrointestinal: Denies abdominal pain, Denies change in bowel habits, Denies diarrhea, Denies nausea and Denies vomiting Genitourinary Genitourinary: Denies hematuria, Denies flank pain, Denies urinary incontinence and Denies urinary urgency Musculoskeletal Musculoskeletal: Denies back pain, Denies muscle weakness, Denies neck pain, Denies numbness and Denies tingling Integumentary/Breasts Skin/Breast: Denies pruritus, Denies erythema, Denies rash and Denies wounds Neurologic Neurologic: Denies behavioral changes, Denies confusion, Denies dizziness, Denies frequent falls, Denies loss of vision, Denies numbness, Denies tingling and Denies weakness Psychiatric Psychiatric: Denies anxiety, Denies behavioral changes, Denies confusion, Denies depression, Denies homicidal ideation and Denies suicidal ideation Endocrine Endocrine: Reports excessive sweating, Denies fatigue, Denies flushing and Denies palpitations Hematologic/Lymphatic Hematologic/Lymphatic: Denies easy bruising Allergic/Immunologic Allergic/Immunologic: Denies urticaria, Denies throat swelling and Denies wheezing Patient History <Keaton Kelsey PA-C - Last Filed: 05/09/22 20:39> Medical History Carpal tunnel syndrome (~2016) Chicken pox (~1962) 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 DM2 (diabetes mellitus, type 2) Dysphagia Gout (~1994) History of heart attack Hyperlipidemia Hypertriglyceridemia Mumps (~1962) Myocardial infarction Upper extremity somatic dysfunction Wears glasses Surgical History Anesthesia History of ankle surgery (~2018) History of carpal tunnel release (~2016) History of coronary angiogram History of repair of ACL (~2011) History of repair of rotator cuff History of umbilical hernia repair (~2000) History of vocal cord polypectomy Family History Father Brain aneurysm Mother Lung cancer Social History Smoking Status: Former smoker eating out: rarely or never Smoking Status: Former smoker alcohol intake frequency: a few times a month Substance Use Type: does not use Exam <Keaton Kelsey PA-C - Last Filed: 05/09/22 20:39> Narrative Exam Narrative: Const General:?cooperative, healthy appearing and comfortable [facility] Head:?normal to inspection Ears:?hearing grossly normal bilaterally Nose:?external nose normal Face and sinus:?normal facial exam and sinuses nontender Mouth:?oral mucosae normal Throat:?posterior oropharynx normal Eyes General:?appearance normal, both eyes and all related structures Neck Neck:?normal visual inspection and no lymphadenopathy noted Resp Effort & Inspection:?normal respiratory effort Auscultation:?clear to auscultation bilaterally Cardio Rate:?regular rate Rhythm:?regular rhythm Neuro General:?patient alert, patient awake and patient oriented x3 Initial Vital Signs Initial Vital Signs: Vital Signs Temperature 97.9 F 05/09/22 15:21 Pulse Rate 91 H 05/09/22 15:21 Respiratory Rate 22 05/09/22 15:21 Blood Pressure 89/62 L 05/09/22 15:21 Pulse Oximetry 98 05/09/22 15:21 Oxygen Delivery Method 05/09/22 15:21 <Emily Turcios DO - Last Filed: 05/10/22 10:06> Initial Vital Signs Initial Vital Signs: Vital Signs Temperature 97.9 F 05/09/22 15:21 Pulse Rate 91 H 05/09/22 15:21 Respiratory Rate 22 05/09/22 15:21 Blood Pressure 89/62 L 05/09/22 15:21 Pulse Oximetry 98 05/09/22 15:21 Oxygen Delivery Method 05/09/22 15:21 Course <Keaton Kelsey PA-C - Last Filed: 05/09/22 20:39> Orders Ordered: Discontinued Medications Sodium Chloride (Normal Saline 0.9%) 1,000 mls @ 1,000 mls/hr IV BOLUS ONE Stop: 05/09/22 18:40 Last Infusion: 05/09/22 19:42 Dose: 0 mls/hr Documented By: Admin: 05/09/22 18:11 Dose: 1,000 mls/hr Documented By: LARA Vital Signs Vital signs: Vital Signs - 8 hr 05/09/22 15:21 05/09/22 18:03 05/09/22 19:39 Temperature 97.9 F Pulse Rate 91 H 68 64 Respiratory Rate 22 14 21 Blood Pressure 89/62 L 108/66 Pulse Oximetry 98 98 Oxygen Delivery Method Room Air Room Air 05/09/22 19:41 05/09/22 19:41 05/09/22 20:00 Temperature Pulse Rate 65 Respiratory Rate 15 Blood Pressure 103/66 101/61 Pulse Oximetry 99 Oxygen Delivery Method Room Air 05/09/22 20:00 Temperature Pulse Rate 65 Respiratory Rate 21 Blood Pressure Pulse Oximetry 97 Oxygen Delivery Method Room Air <Emily Turcios DO - Last Filed: 05/10/22 10:06> Orders Ordered: Discontinued Medications Sodium Chloride (Normal Saline 0.9%) 1,000 mls @ 1,000 mls/hr IV BOLUS ONE Stop: 05/09/22 18:40 Last Infusion: 05/09/22 19:42 Dose: 0 mls/hr Documented By: Admin: 05/09/22 18:11 Dose: 1,000 mls/hr Documented By: LARA Vital Signs Vital signs: Vital Signs - 8 hr 05/09/22 15:21 05/09/22 18:03 05/09/22 19:39 Temperature 97.9 F Pulse Rate 91 H 68 64 Respiratory Rate 22 14 21 Blood Pressure 89/62 L 108/66 Pulse Oximetry 98 98 Oxygen Delivery Method Room Air Room Air 05/09/22 19:41 05/09/22 19:41 05/09/22 20:00 Temperature Pulse Rate 65 Respiratory Rate 15 Blood Pressure 103/66 101/61 Pulse Oximetry 99 Oxygen Delivery Method Room Air 05/09/22 20:00 Temperature Pulse Rate 65 Respiratory Rate 21 Blood Pressure Pulse Oximetry 97 Oxygen Delivery Method Room Air MDM - Chest Pain <Keaton Kelsey PA-C - Last Filed: 05/09/22 20:39> Lab Data Result diagrams: 05/09/22 15:42 05/09/22 19:40 Labs: Lab Results 05/09/22 05/09/22 05/09/22 Range/Units 15:42 15:42 17:34 WBC 8.5 (4.5-11.0) X10^3/uL RBC 4.90 (4.5-5.9) X10^6/uL Hgb 13.9 (13.5-17.5) g/dL Hct 40.5 L (41-53) % MCV 82.6 (80-100) fL MCH 28.4 (26-34) PG MCHC 34.4 (30-36) % RDW 13.7 (11.6-14.8) % Plt Count 255 (150-400) X10^3/uL Neut % (Auto) 73.2 (50-75) % Lymph % (Auto) 19.1 L (25-40) % [place] % (Auto) 5.9 (3-14) % Eos % (Auto) 0.7 L (2-4) % Baso % (Auto) 1.1 (0-2) % Neut # (Auto) 6300 (2080-1993) /uL Lymph # (Auto) 1600 (9572-1577) /uL [place] # (Auto) 500 (0-900) /uL Eos # (Auto) 100 (0-450) /uL Baso # (Auto) 100 (0-100) /uL D-Dimer (<500) ng/ml Sodium 139 (137-145) mmol/L Potassium 4.2 (3.4-5.1) mmol/L Chloride 106 (98-107) mmol/L Carbon Dioxide 19 L (22-32) mmol/L BUN 18 (9-20) mg/dL Creatinine 1.63 H (0.66-1.25) mg/dL Estimated GFR 46 L (>60) mL/min BUN/Creatinine Ratio 11.0 (6-22) Glucose 106 (80-110) mg/dL Calcium 9.7 (8.4-10.2) mg/dL Total Bilirubin 0.7 (0.2-1.3) mg/dL AST 27 (17-59) IU/L ALT 20 (<50) IU/L Alkaline Phosphatase 82 (38-126) U/L Total Creatine Kinase 135 (55-170) U/L CK-MB (CK-2) 0.77 (<2.37) ng/mL CK-MB (CK-2) Rel Index 0.6 L (1.5-5.0) % Troponin I 0.016 0.033 (0.01-0.034) ng/mL NT-Pro-B Natriuret Pep (<125) pg/mL Total Protein 8.2 (6.3-8.2) g/dL Albumin 4.7 (3.5-5.0) g/dL Globulin 3.5 (1.7-4.1) g/dL Albumin/Globulin Ratio 1.3 (1.0-2.8) Lipase 108 (23-300) U/L Ur Bilirubin Confirm (Negative) Urine RBC (0-5/HPF) Urine WBC (0-5/HPF) Urine Bacteria (None) Hyaline Casts (None) Urine Mucus (Negative) Ur Culture Indicated? 05/09/22 05/09/22 05/09/22 Range/Units 17:34 17:45 19:26 WBC (4.5-11.0) X10^3/uL RBC (4.5-5.9) X10^6/uL Hgb (13.5-17.5) g/dL Hct (41-53) % MCV (80-100) fL MCH (26-34) PG MCHC (30-36) % RDW (11.6-14.8) % Plt Count (150-400) X10^3/uL Neut % (Auto) (50-75) % Lymph % (Auto) (25-40) % [place] % (Auto) (3-14) % Eos % (Auto) (2-4) % Baso % (Auto) (0-2) % Neut # (Auto) (2089-0686) /uL Lymph # (Auto) (9259-6385) /uL [place] # (Auto) (0-900) /uL Eos # (Auto) (0-450) /uL Baso # (Auto) (0-100) /uL D-Dimer 847 H (<500) ng/ml Sodium (137-145) mmol/L Potassium (3.4-5.1) mmol/L Chloride (98-107) mmol/L Carbon Dioxide (22-32) mmol/L BUN (9-20) mg/dL Creatinine (0.66-1.25) mg/dL Estimated GFR (>60) mL/min BUN/Creatinine Ratio (6-22) Glucose (80-110) mg/dL Calcium (8.4-10.2) mg/dL Total Bilirubin (0.2-1.3) mg/dL AST (17-59) IU/L ALT (<50) IU/L Alkaline Phosphatase (38-126) U/L Total Creatine Kinase (55-170) U/L CK-MB (CK-2) (<2.37) ng/mL CK-MB (CK-2) Rel Index (1.5-5.0) % Troponin I (0.01-0.034) ng/mL NT-Pro-B Natriuret Pep 55 (<125) pg/mL Total Protein (6.3-8.2) g/dL Albumin (3.5-5.0) g/dL Globulin (1.7-4.1) g/dL Albumin/Globulin Ratio (1.0-2.8) Lipase (23-300) U/L Ur Bilirubin Confirm (Negative) Urine RBC None seen (0-5/HPF) Urine WBC None seen (0-5/HPF) Urine Bacteria None seen (None) Hyaline Casts 5-10/lpf (None) Urine Mucus 2+ H (Negative) Ur Culture Indicated? Cult not indicated 05/09/22 05/09/22 05/09/22 Range/Units 19:26 19:40 19:40 WBC (4.5-11.0) X10^3/uL RBC (4.5-5.9) X10^6/uL Hgb (13.5-17.5) g/dL Hct (41-53) % MCV (80-100) fL MCH (26-34) PG MCHC (30-36) % RDW (11.6-14.8) % Plt Count (150-400) X10^3/uL Neut % (Auto) (50-75) % Lymph % (Auto) (25-40) % [place] % (Auto) (3-14) % Eos % (Auto) (2-4) % Baso % (Auto) (0-2) % Neut # (Auto) (6880-7823) /uL Lymph # (Auto) (4469-2786) /uL [place] # (Auto) (0-900) /uL Eos # (Auto) (0-450) /uL Baso # (Auto) (0-100) /uL D-Dimer (<500) ng/ml Sodium 137 (137-145) mmol/L Potassium 4.4 (3.4-5.1) mmol/L Chloride 103 (98-107) mmol/L Carbon Dioxide 21 L (22-32) mmol/L BUN 19 (9-20) mg/dL Creatinine 1.37 H (0.66-1.25) mg/dL Estimated GFR 56 L (>60) mL/min BUN/Creatinine Ratio 13.9 (6-22) Glucose 101 (80-110) mg/dL Calcium 9.2 (8.4-10.2) mg/dL Total Bilirubin 0.5 (0.2-1.3) mg/dL AST 24 (17-59) IU/L ALT 19 (<50) IU/L Alkaline Phosphatase 70 (38-126) U/L Total Creatine Kinase 114 (55-170) U/L CK-MB (CK-2) 0.78 (<2.37) ng/mL CK-MB (CK-2) Rel Index 0.7 L (1.5-5.0) % Troponin I 0.015 (0.01-0.034) ng/mL NT-Pro-B Natriuret Pep (<125) pg/mL Total Protein 7.5 (6.3-8.2) g/dL Albumin 4.4 (3.5-5.0) g/dL Globulin 3.1 (1.7-4.1) g/dL Albumin/Globulin Ratio 1.4 (1.0-2.8) Lipase (23-300) U/L Ur Bilirubin Confirm Negative (Negative) Urine RBC (0-5/HPF) Urine WBC (0-5/HPF) Urine Bacteria (None) Hyaline Casts (None) Urine Mucus (Negative) Ur Culture Indicated? Urine Dip Bedside Urine Glucose Negative Bedside Urine Bilirubin + 1 Bedside Urine Ketone - Negative Urine Specific [place] 1.025 Bedside Urine Occult Blood - Negative Bedside Urine pH 5.5 Bedside Urine Protein +/- 15 Bedside Urine Urobilinogen - Negative Bedside Urine Nitrite - Negative Bedside Urine Leukocytes - Negative Esterase Imaging Data Chest x-ray: Radiologist's Impression: PROCEDURE:? XR CHEST 1V ? INDICATIONS:? chest pain ? TECHNIQUE:? One view of the chest was acquired.? ? COMPARISON:? [facility], XR CHEST 1V, 08/09/2020, 9:34. ? FINDINGS:? ? Surgical changes and devices:? None.? ? Lungs and pleura:? Lungs are clear.? No pleural effusions or pneumothorax.? ? Mediastinum:? The cardiac contours are within normal limits. The aorta demonstrates calcification and tortuosity. ? Bones and chest wall:? No suspicious bony lesions.? Age-appropriate bony degenerative changes are seen. ? Overlying soft tissues appear unremarkable.? IMPRESSION:? ? Portable chest study within normal limits for age. ? ? Dictated by: Juvenal Smith M.D. on 05/09/2022 at 14:13 ? ? Approved by: Juvenal Smith M.D. on 05/09/2022 at 14:13 ? CT scan - chest: Radiologist's Impression: PROCEDURE:? CT ANGIO CHEST PE PROTOCOL ? INDICATIONS:? SOB, elev dimer ? TECHNIQUE:? After the administration of intravenous contrast, 2 mm thick sections acquired from the pulmonary apices to the posterior costophrenic angles.? 3-dimensional maximum intensity projection (MIP) coronal and sagittal reformats were then acquired through the thorax.? For radiation dose reduction, the following was used:? automated exposure control, adjustment of mA and/or kV according to patient size.? ? COMPARISON:? [facility], XR CHEST 1V, 05/09/2022, 15:03. ? FINDINGS:? Image quality:? Excellent.? ? Pulmonary arteries:? Pulmonary arteries are normal in size, and demonstrate no intraluminal filling defects to suggest central pulmonary embolism.? ? Lungs and pleura:? No acute consolidation or acute GGO. No pleural effusion or pneumothorax.? Central and peripheral airways are patent. Scattered small lung cysts. ? ? Mediastinum:? Heart size is normal, without pericardial effusion.? No mediastinal or hilar adenopathy.? Thoracic aorta is normal in caliber and enhancement.? Esophagus is normal in caliber, without hiatal hernia.? Coronary and aortic atherosclerosis noted. ? Bones and chest wall:? No suspicious bony lesions.? Ribs and thoracic spine appear intact throughout.? No axillary or supraclavicular adenopathy.? ? Abdomen:? Visualized upper abdominal solid organs appear normal in the early arterial phase of enhancement.? ? IMPRESSION:? ? No pulmonary embolism or other acute finding in the chest. ? ? Dictated by: Philippe Obregon M.D. on 05/09/2022 at 19:29 ? ? Approved by: Philippe Obregon M.D. on 05/09/2022 at 19:37 ? ECG Data Interpretation: Normal sinus rhythm, no axis deviation, no acute ST-T changes MDM Narrative Medical decision making narrative: 67-year-old male with past medical history [place], diabetes, hyperlipidemia, hypertension presents to the ED with 1 day of shortness of breath, lightheadedness, diaphoresis, tachycardia, hypotension. Concern for ACS versus CHF exacerbation versus PE versus pneumonia versus UTI. Will obtain chest x-ray, EKG, labs, troponin, D-dimer, BNP, UA. Patient blood pressure at 89/62 on arrival to the ED. Will give IV fluids, reassess. JUNIOR creatinine 1.63, EGFR 46 which is above his prior baseline of 0.86. Creatinine improved to 1.37, GFR improved to 56 with 1 L of IV hydration. Patient's workup was unremarkable. Three repeat EKGs were performed, 3 troponins trended. A CTA chest was performed due to an elevated D-dimer, however no acute findings. Patient's symptoms today are likely due to dehydration. Patient advised to keep up on hydration. Patient agrees to follow-up with his PCP in a week to trend kidney function and blood pressures. ED return precautions were discussed with patient. Patient verbalized understanding. <Emily Turcios, DO - Last Filed: 05/10/22 10:06> Lab Data Labs: Lab Results 05/09/22 05/09/22 05/09/22 Range/Units 15:42 15:42 17:34 WBC 8.5 (4.5-11.0) X10^3/uL RBC 4.90 (4.5-5.9) X10^6/uL Hgb 13.9 (13.5-17.5) g/dL Hct 40.5 L (41-53) % MCV 82.6 (80-100) fL MCH 28.4 (26-34) PG MCHC 34.4 (30-36) % RDW 13.7 (11.6-14.8) % Plt Count 255 (150-400) X10^3/uL Neut % (Auto) 73.2 (50-75) % Lymph % (Auto) 19.1 L (25-40) % [place] % (Auto) 5.9 (3-14) % Eos % (Auto) 0.7 L (2-4) % Baso % (Auto) 1.1 (0-2) % Neut # (Auto) 6300 (7210-9489) /uL Lymph # (Auto) 1600 (0594-1075) /uL [place] # (Auto) 500 (0-900) /uL Eos # (Auto) 100 (0-450) /uL Baso # (Auto) 100 (0-100) /uL D-Dimer (<500) ng/ml Sodium 139 (137-145) mmol/L Potassium 4.2 (3.4-5.1) mmol/L Chloride 106 (98-107) mmol/L Carbon Dioxide 19 L (22-32) mmol/L BUN 18 (9-20) mg/dL Creatinine 1.63 H (0.66-1.25) mg/dL Estimated GFR 46 L (>60) mL/min BUN/Creatinine Ratio 11.0 (6-22) Glucose 106 (80-110) mg/dL Calcium 9.7 (8.4-10.2) mg/dL Total Bilirubin 0.7 (0.2-1.3) mg/dL AST 27 (17-59) IU/L ALT 20 (<50) IU/L Alkaline Phosphatase 82 (38-126) U/L Total Creatine Kinase 135 (55-170) U/L CK-MB (CK-2) 0.77 (<2.37) ng/mL CK-MB (CK-2) Rel Index 0.6 L (1.5-5.0) % Troponin I 0.016 0.033 (0.01-0.034) ng/mL NT-Pro-B Natriuret Pep (<125) pg/mL Total Protein 8.2 (6.3-8.2) g/dL Albumin 4.7 (3.5-5.0) g/dL Globulin 3.5 (1.7-4.1) g/dL Albumin/Globulin Ratio 1.3 (1.0-2.8) Lipase 108 (23-300) U/L Ur Bilirubin Confirm (Negative) Urine RBC (0-5/HPF) Urine WBC (0-5/HPF) Urine Bacteria (None) Hyaline Casts (None) Urine Mucus (Negative) Ur Culture Indicated? 05/09/22 05/09/22 05/09/22 Range/Units 17:34 17:45 19:26 WBC (4.5-11.0) X10^3/uL RBC (4.5-5.9) X10^6/uL Hgb (13.5-17.5) g/dL Hct (41-53) % MCV (80-100) fL MCH (26-34) PG MCHC (30-36) % RDW (11.6-14.8) % Plt Count (150-400) X10^3/uL Neut % (Auto) (50-75) % Lymph % (Auto) (25-40) % [place] % (Auto) (3-14) % Eos % (Auto) (2-4) % Baso % (Auto) (0-2) % Neut # (Auto) (2966-5603) /uL Lymph # (Auto) (2282-0968) /uL [place] # (Auto) (0-900) /uL Eos # (Auto) (0-450) /uL Baso # (Auto) (0-100) /uL D-Dimer 847 H (<500) ng/ml Sodium (137-145) mmol/L Potassium (3.4-5.1) mmol/L Chloride (98-107) mmol/L Carbon Dioxide (22-32) mmol/L BUN (9-20) mg/dL Creatinine (0.66-1.25) mg/dL Estimated GFR (>60) mL/min BUN/Creatinine Ratio (6-22) Glucose (80-110) mg/dL Calcium (8.4-10.2) mg/dL Total Bilirubin (0.2-1.3) mg/dL AST (17-59) IU/L ALT (<50) IU/L Alkaline Phosphatase (38-126) U/L Total Creatine Kinase (55-170) U/L CK-MB (CK-2) (<2.37) ng/mL CK-MB (CK-2) Rel Index (1.5-5.0) % Troponin I (0.01-0.034) ng/mL NT-Pro-B Natriuret Pep 55 (<125) pg/mL Total Protein (6.3-8.2) g/dL Albumin (3.5-5.0) g/dL Globulin (1.7-4.1) g/dL Albumin/Globulin Ratio (1.0-2.8) Lipase (23-300) U/L Ur Bilirubin Confirm (Negative) Urine RBC None seen (0-5/HPF) Urine WBC None seen (0-5/HPF) Urine Bacteria None seen (None) Hyaline Casts 5-10/lpf (None) Urine Mucus 2+ H (Negative) Ur Culture Indicated? Cult not indicated 05/09/22 05/09/22 05/09/22 Range/Units 19:26 19:40 19:40 WBC (4.5-11.0) X10^3/uL RBC (4.5-5.9) X10^6/uL Hgb (13.5-17.5) g/dL Hct (41-53) % MCV (80-100) fL MCH (26-34) PG MCHC (30-36) % RDW (11.6-14.8) % Plt Count (150-400) X10^3/uL Neut % (Auto) (50-75) % Lymph % (Auto) (25-40) % [place] % (Auto) (3-14) % Eos % (Auto) (2-4) % Baso % (Auto) (0-2) % Neut # (Auto) (8452-9764) /uL Lymph # (Auto) (2441-9595) /uL [place] # (Auto) (0-900) /uL Eos # (Auto) (0-450) /uL Baso # (Auto) (0-100) /uL D-Dimer (<500) ng/ml Sodium 137 (137-145) mmol/L Potassium 4.4 (3.4-5.1) mmol/L Chloride 103 (98-107) mmol/L Carbon Dioxide 21 L (22-32) mmol/L BUN 19 (9-20) mg/dL Creatinine 1.37 H (0.66-1.25) mg/dL Estimated GFR 56 L (>60) mL/min BUN/Creatinine Ratio 13.9 (6-22) Glucose 101 (80-110) mg/dL Calcium 9.2 (8.4-10.2) mg/dL Total Bilirubin 0.5 (0.2-1.3) mg/dL AST 24 (17-59) IU/L ALT 19 (<50) IU/L Alkaline Phosphatase 70 (38-126) U/L Total Creatine Kinase 114 (55-170) U/L CK-MB (CK-2) 0.78 (<2.37) ng/mL CK-MB (CK-2) Rel Index 0.7 L (1.5-5.0) % Troponin I 0.015 (0.01-0.034) ng/mL NT-Pro-B Natriuret Pep (<125) pg/mL Total Protein 7.5 (6.3-8.2) g/dL Albumin 4.4 (3.5-5.0) g/dL Globulin 3.1 (1.7-4.1) g/dL Albumin/Globulin Ratio 1.4 (1.0-2.8) Lipase (23-300) U/L Ur Bilirubin Confirm Negative (Negative) Urine RBC (0-5/HPF) Urine WBC (0-5/HPF) Urine Bacteria (None) Hyaline Casts (None) Urine Mucus (Negative) Ur Culture Indicated? Urine Dip Bedside Urine Glucose Negative Bedside Urine Bilirubin + 1 Bedside Urine Ketone - Negative Urine Specific [place] 1.025 Bedside Urine Occult Blood - Negative Bedside Urine pH 5.5 Bedside Urine Protein +/- 15 Bedside Urine Urobilinogen - Negative Bedside Urine Nitrite - Negative Bedside Urine Leukocytes - Negative Esterase ECG Data Interpretation: Normal sinus rhythm, no axis deviation, no acute ST-T changes BOTNICK- Sinus rhythm rate 86 IA interval 170 QRS 86 QTC 402 some artifact noted persistent Q-waves in lead 3 and AVF similar to previous EKG 08/09/2020 EKG 2. Sinus rhythm persistent Q-waves no ST changes EKG 3. Normal sinus rhythm rate 66 IA interval 184 QRS 90 QTC 404 Q-wave noted in lead 3 similar to prior Discharge Plan Departure Patient Disposition: Home Clinical Impression: Shortness of breath Instructions: DI for Shortness of Breath Activity Restrictions/Additional Instructions: You were evaluated in the ED today for shortness of breath. Your EKG, chest x-ray, labs, CT angiogram of the chest were without acute findings. Your kidney function appeared to be lower than from last year, which improved with IV hydration. Please follow-up with your PCP in a week to recheck your kidney function. Kidney function can fall due to dehydration among many other reasons. Please continue to stay well hydrated. Return to the ED if your symptoms worsen, you experience chest pain, worsening shortness of breath. Prescriptions: No Action (DME) glucometer See Rx Instructions .Route .MEDSUPPLY Qty: 1 0RF Rx Instructions: As directed (DME) lancets 33 gauge misc See Rx Instructions .ROUTE .MEDSUPPLY Qty: 100 0RF Rx Instructions: As directed (DME) True Metrix Glucose Test Strip Strip See Rx Instructions .ROUTE .COMPLEX Qty: 100 11RF Dose Instruction: USE TWICE A DAY Rx Instructions: USE TWICE A DAY lisinopril 20 mg tablet See Rx Instructions .ROUTE .COMPLEX Qty: 90 3RF Dose Instruction: TAKE 1 TABLET EVERY DAY Rx Instructions: TAKE 1 TABLET EVERY DAY fenofibrate 54 mg tablet See Rx Instructions .ROUTE .COMPLEX Qty: 90 0RF Dose Instruction: TAKE 1 TABLET EVERY DAY Rx Instructions: TAKE 1 TABLET EVERY DAY metformin 500 mg tablet See Rx Instructions .ROUTE .COMPLEX Qty: 90 0RF Dose Instruction: TAKE 1 TABLET EVERY DAY Rx Instructions: TAKE 1 TABLET EVERY DAY simvastatin 40 mg tablet See Rx Instructions .ROUTE .COMPLEX Qty: 90 3RF Dose Instruction: TAKE 1 TABLET EVERY DAY Rx Instructions: TAKE 1 TABLET EVERY DAY CoQ10 1,200 mg PO omega-3 fatty acids 100 mg tablet,chewable PO aspirin 81 mg Tablet,Delayed Release (Dr/Ec) 81 mg PO QPM ibuprofen 200 mg Tablet 800 mg PO BID doxycycline monohydrate 100 mg capsule 100 mg PO BID Qty: 14 0RF Referrals: Fabrizio Carranza DO [Primary Care Provider] - Visit Report Forms: Patient Portal/API <Emily Turcios DO - Last Filed: 05/10/22 10:06> Cosign ED Attending Tammieature Attestation: I was immediately available in the department for consultation. Documentation has been reviewed. I agree with assessment and plan.
[2022-05-09 19:56] LABS: Ictotest Urine Negative (Negative)
[2022-05-09 19:56] LABS: Creatine Kinase 114 U/L (55-170)
[2022-05-09 20:07] LABS: Bacteria Urine None Seen; Culture Indicated Urine Cult Not Indicated; Hyaline Casts Urine 5-10/LPF; Mucus Urine 2+ (Negative); RBC Urine None Seen (0-5/HPF); WBC Urine None Seen (0-5/HPF)
[2022-05-09 20:09] LABS: Troponin I 0.015 ng/mL (0.01-0.034)
[2022-05-09 20:12] LABS: CKMB % Relative Index 0.7 % (1.5-5.0); Creatine Kinase MB 0.78 ng/mL (<2.37)
[2022-05-09 20:23] LABS: Alanine Aminotransferase 19 IU/L (<50); Albumin 4.4 g/dL (3.5-5.0); Albumin Globulin Ratio 1.4 (1.0-2.8); Alkaline Phosphatase 70 U/L (38-126); Aspartate Aminotransferase 24 IU/L (17-59); BUN Creatinine Ratio 13.9 (6-22); Bilirubin Total 0.5 mg/dL (0.2-1.3); Blood Urea Nitrogen 19 mg/dL (9-20); Calcium 9.2 mg/dL (8.4-10.2); Carbon Dioxide 21 mmol/L (22-32); Chloride 103 mmol/L (98-107); Estimated Glomerular Filt Rate 56 mL/min (>60); Globulin 3.1 g/dL (1.7-4.1); Glucose 101 mg/dL (80-110); HEMOLYSIS < 15 (0-50); Potassium 4.4 mmol/L (3.4-5.1); Sodium 137 mmol/L (137-145); Total Protein 7.5 g/dL (6.3-8.2)
== END 2022-05-09 20:47 | disposition home or self-care (01) ==
PROVIDERS: Emergency Medicine; Emergency Provider Student in an Organized Health Care Education/Training Program; PCP Family Medicine
DX: R06.02 Shortness of breath (principal); R07.9 Chest pain, unspecified; E86.0 Dehydration
CPT/HCPCS: 36415; 71045; 71275; 80053; 81003; 81015; 82550; 82553; 83690; 83880; 84484; 85025; 85379; 93005; 96360; 96361; 99284; Q9967

== ENCOUNTER → 2022-09-12 09:07 | Outpatient (CLI) | payer OTHER, SELFPAY ==
[2022-09-12 10:18] LABS: Add Manual Diff / Slide Review NO; Basophils Absolute Auto 100 /uL (0-100); Basophils Percent Auto 0.9 % (0-2); Eosinophils Absolute Auto 100 /uL (0-450); Hematocrit 37.8 % (41-53); Hemoglobin 12.9 g/dL (13.5-17.5); Lymphocytes Absolute Auto 2000 /uL (1100-4500); Lymphocytes Percent Auto 29.4 % (25-40); Mean Corpuscular HGB Conc 34.2 % (30-36); Mean Corpuscular Hemoglobin 28.6 PG (26-34); Mean Corpuscular Volume 83.8 fL (80-100); Monocytes Absolute Auto 500 /uL (0-900); Monocytes Percent Auto 7.3 % (3-14); Neutrophils Absolute Auto 4200 /uL (1500-7000); Neutrophils Percent Auto 60.4 % (50-75); Platelet Count 228 X10^3/uL (150-400); Red Blood Cell Count 4.51 X10^6/uL (4.5-5.9); Red Cell Distribution Width 13.5 % (11.6-14.8); White Blood Cell Count 6.9 X10^3/uL (4.5-11.0)
[2022-09-12 10:25] LABS: Hemoglobin A1C% w Est Avg Glu 6.6 % (4.0-6.0)
[2022-09-12 10:38] LABS: Alanine Aminotransferase 19 IU/L (<50); Albumin 4.3 g/dL (3.5-5.0); Albumin Globulin Ratio 1.4 (1.0-2.8); Alkaline Phosphatase 75 U/L (38-126); Aspartate Aminotransferase 20 IU/L (17-59); BUN Creatinine Ratio 14.3 (6-22); Bilirubin Total 0.3 mg/dL (0.2-1.3); Blood Urea Nitrogen 12 mg/dL (9-20); Calcium 9.2 mg/dL (8.4-10.2); Carbon Dioxide 25 mmol/L (22-32); Chloride 107 mmol/L (98-107); Cholesterol 192 mg/dL (140-199); Estimated Glomerular Filt Rate > 60 mL/min (>60); Glucose 120 mg/dL (80-110); HDL Cholesterol 46 mg/dL (40-60); HEMOLYSIS < 15 (0-50); LDL Cholesterol Calculated 92 mg/dL (<100); Potassium 4.4 mmol/L (3.4-5.1); Sodium 139 mmol/L (137-145); Total Protein 7.3 g/dL (6.3-8.2); Triglycerides 269 mg/dL (35-150)
[2022-09-12 11:07] LABS: Prostate Specific Antigen Scrn 1.56 ng/mL (0.1-4.0)
== END ==
PROVIDERS: PCP Family Medicine; Referring Provider Family Medicine; Visit Provider Family Medicine
DX: E11.9 Type 2 diabetes mellitus without complications (principal); Z12.5 Encounter for screening for malignant neoplasm of prostate; E78.1 Pure hyperglyceridemia; E78.5 Hyperlipidemia, unspecified; I10 Essential (primary) hypertension
CPT/HCPCS: 36415; 80053; 80061; 83036; 85025; G0103

== ENCOUNTER → 2022-09-21 07:13 | Outpatient (CLI) | payer OTHER, SELFPAY ==
--- NOTE | 2022-09-22 19:18 | DI.NM.S_ITS ---
DATE OF SERVICE: 09/21/2022 PROCEDURE: Exercise stress test. INDICATION: Dyspnea, known history of CAD, MT, diabetes mellitus. RADIOPHARMACEUTICAL: 26.1 millicurie technetium-99m Myoview IV was injected at stress and 25.3 millicurie technetium-99m Myoview IV was injected at rest. CARDIAC STRESS: The patient underwent exercise perfusion study under the supervision of an attending staff. He walked on Sandeep protocol for 4 minutes and 18 seconds and felt fatigue and shortness of breath. Resting blood pressure 102/70 and peak blood pressure 152/82 mmHg. Achieved maximum heart rate of 148 beats per minute, which was 97 percent of target heart rate. Seven METs of workload. PB positive 35 percent. Baseline rhythm sinus. During stress, some nonspecific upsloping ST depression in leads V4 to V6 without any convincing ischemic changes or significant arrhythmias. No chest pain. RAW DATA: There is increased subdiaphragmatic activity. GATED STUDY: Resting LV ejection fraction 59 and stress LV ejection fraction 72 percent. Resting end-diastolic volume 91 mL. No significant wall motion abnormalities. TID ratio 0.83, which is within normal limits. Lung/heart ratio 0.37, which is within normal limits. MYOCARDIAL PERFUSION SCAN: Stress supine, resting supine and stress prone images were compared to each other. There appears to be moderate size, mild to moderately reversible defect involving mid to distal anterior wall and anteroapex. The inferior wall defect, which was not seen during stress supine and resting supine images, got improved during stress prone images, suggestive of diaphragmatic attenuation artifact affecting the inferior wall defect. 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 Diminished exercise tolerance. Functional aerobic impairment positive 35 percent. The patient felt fatigued and winded. However, overall left ventricular function is preserved. Consider cardiology evaluation for possible left heart catheterization. Findings were reported to PCP Dr. Carranza. Darnell Goel - LYUDMILA/lorne/ailyn doc#: [id number]/job#: [id number] dd: 09/22/2022 17:10:00 dt: 09/22/2022 18:49:00 DICTATING MD/COPIES TO: Naheed Aleman MD COPIES MNE: [place];
== END ==
PROVIDERS: PCP Family Medicine; Referring Provider Family Medicine; Visit Provider Family Medicine
DX: R94.39 Abnormal result of other cardiovascular function study (principal); R06.09 Other forms of dyspnea; I25.2 Old myocardial infarction; I25.10 Atherosclerotic heart disease of native coronary artery without angina pectoris; E11.9 Type 2 diabetes mellitus without complications
CPT/HCPCS: 78452; 93017; A9502

== ENCOUNTER → 2022-09-22 07:57 | Outpatient (CLI) | payer OTHER, SELFPAY ==
--- NOTE | 2022-09-22 07:58 | DI.ECHO.S_ITS ---
[facility] +---------+ [facility] +---------+ : : [address] : [address] : : : : [id number] : : : : Phone: [phone]+ Echocardiogram Report + + :Name: ISH QUEZADA Study Date: 09/22/2022 Height: 66 in : :[facility] ReadingLocation: Weight: 180 lb : : Gender: Male BSA: 1.9 m2 : :: 1955 Age: 67 yrs BP: 110/69 mmHg: :Reason For Study: Dyspnea on exertion, old GA : :Ordering Physician: SHASHI, : :ALYSSIA Performed By: Pily Nj : :Referring: ALYSSIA DANIELLE : + + Interpretation Summary The study quality was technically difficult. The ejection fraction is estimated to be 50-55%. Regional wall motion abnormalities cannot be excluded due to limited visualization. Diastolic parameters suggest probable normal left ventricular diastolic function and normal filling pressures. The right ventricle is mildly dilated. Right ventricular systolic function is mildly reduced. The right atrium is mildly dilated. There is trace aortic regurgitation. Pulmonary artery pressures cannot be estimated because of the lack of a measurable TR jet velocity. Procedure: A two-dimensional transthoracic echocardiogram with color flow and Doppler was performed. The study quality was technically difficult. The patient was in sinus bradycardia with heart rates between 52-59 bpm during the exam. Left Ventricle: The left ventricle is normal in size and wall thickness. The ejection fraction is estimated to be 50-55%. Regional wall motion abnormalities cannot be excluded due to limited visualization. Diastolic parameters suggest probable normal left ventricular diastolic function and normal filling pressures. Right Ventricle: The right ventricle is mildly dilated. Right ventricular systolic function is mildly reduced. Atria: The left atrial size is normal. The right atrium is mildly dilated. There is no Doppler evidence for an interatrial shunt. Mitral Valve: The mitral valve is normal in structure and function. There is no mitral regurgitation noted. Aortic Valve: The aortic valve is trileaflet. The aortic valve opens well. The aortic valve is slightly calcified. There is no aortic valve stenosis. There is trace aortic regurgitation. Tricuspid Valve: The tricuspid valve is normal in structure and function. There is a trace or physiologic amount of tricuspid regurgitation. Pulmonary artery pressures cannot be estimated because of the lack of a measurable TR jet velocity. Pulmonic Valve: The pulmonic valve leaflets are thin and pliable; valve motion is normal. There is no pulmonic valvular regurgitation. Great Vessels: The ascending aorta is at the upper limits of normal in size. The pulmonary artery is normal size. The IVC is of normal diameter and collapses greater than 50% with a sniff. This suggests a low right atrial pressure of 3 mm Hg. Pericardium/ Pleura There is no pericardial effusion. There is no pleural effusion. MMode/2D Measurements & Calculations LVIDd: 4.5 cm LVOT diam: 2.3 cm LVIDs: 3.3 cm Ao root diam: 3.7 cm FS: 26.7 % asc Aorta Diam: 3.6 cm EPSS: 0.30 cm IVSd: 0.90 cm LVPWd: 1.1 cm LV sanchez. diameter/BSA (cm/m^2): 2.4 LV sys. diameter/BSA (cm/m^2): 1.7 LA dimension: 3.3 cm RA long axis: 4.8 cm LA A2 area: 13.1 cm2 RA area: 16.4 cm2 LA A4 area: 11.5 cm2 RA vol: 47.4 ml LA length (vol): 4.1 cm RA : 24.8 ml/m2 LA vol: 31.2 ml IVC diam: 1.00 cm LA vol index: 16.3 ml/m2 RVD1 (basal): 4.6 cm LVLs ap4: 5.7 cm RVD2 (mid): 4.0 cm LVLd ap2: 7.5 cm TAPSE_phl: 2.7 cm LVLs ap2: 5.9 cm Doppler Measurements & Calculations Ao V2 max: 136.0 cm/sec LVOT Max Hunter: 94.0 cm/sec Ao V2 mean: 103.0 cm/sec LV V1 max P.5 mmHg Ao max P.0 mmHg LV V1 VTI: 22.1 cm Ao mean P.0 mmHg SUSIE(I,D): 3.2 cm2 Ao V2 VTI: 28.8 cm SUSIE(V,D): 2.9 cm2 sev ratio: 0.77 SUSIE indexed to BSA (cm^2/m^2): 1.7 MV E max hunter: 63.0 cm/sec TR max hunter: 197.0 cm/sec MV A max hunter: 80.1 cm/sec TR max P.5 mmHg MV E/A: 0.79 PA V2 max: 111.0 cm/sec Med Peak E' Hunter: 7.0 cm/sec PA V2 mean: 64.6 cm/sec E/E' med: 9.1 PA mean P.0 mmHg Lat Peak E' Hunter: 7.2 cm/sec E/E' lat: 8.8 E/e' average: 8.9 MV dec time: 0.24 sec MVA(VTI): 3.0 cm2 MV V2 mean: 42.7 cm/sec SV(LVOT): 91.8 ml MV mean P.0 mmHg MV V2 VTI: 30.8 cm AV VR_phl: 0.69 MV P1/2t-pr_phl: 70.0 msec SUSIE(VTI)/BSA_phl: 1.7 Reading Physician:02:39 PM
== END ==
PROVIDERS: PCP Family Medicine; Referring Provider Family Medicine; Visit Provider Family Medicine
DX: I25.2 Old myocardial infarction (principal); R06.09 Other forms of dyspnea
CPT/HCPCS: 93306

== ENCOUNTER → 2022-10-14 07:43 | Outpatient (CLI) | payer OTHER, SELFPAY ==
--- NOTE | 2022-10-19 10:05 | PM.PFT.1 ---
Pulmonary Function Test Referral & Results Date Patient Seen: 10/14/22 Requesting provider: Fabrizio Carranza Results: The spirometry demonstrates an FVC of 4.01 L which is 104% of predicted. The FEV1 was measured at 3.14 L which is 111% of predicted. The FEV1/FVC ratio was 78 which is 105% of predicted. Following the administration of bronchodilator there was no appreciable change to above normal numbers. Lung volumes show an SVC of 3.84 L which is 95% of predicted. The diffusing capacity was measured at 22.58 which is 83% of predicted. The maximum voluntary ventilation was normal Interpretation: This study demonstrates normal pulmonary function
== END ==
PROVIDERS: PCP Family Medicine; Referring Provider Family Medicine; Visit Provider Family Medicine
DX: R06.09 Other forms of dyspnea (principal); R13.10 Dysphagia, unspecified; Z87.891 Personal history of nicotine dependence
CPT/HCPCS: 94060; 94726; 94729

== ENCOUNTER → 2022-12-23 08:36 | Outpatient (CLI) | payer OTHER, SELFPAY ==
--- NOTE | 2022-12-23 | DI.MRI.S_ITS ---
PROCEDURE: MR LUMBAR SPINE WO CON INDICATIONS: HIP PAIN/SCIATICA TECHNIQUE: Noncontrast sagittal T1 spin echo and T2 fast echo, sagittal STIR, and T2 fast spin echo through the lumbar spine. In cases with scoliosis, additional coronal T2 fast spin echo may be performed. COMPARISON: None. FINDINGS: Image quality: Excellent. Alignment and Curvature: There is normal bony alignment. Bone Marrow: Marrow is of normal overall signal. No acute vertebral body compression fractures. Spinal Cord: Conus medullaris terminates at the L1 level. Visualized cord demonstrates normal signal and size. Paraspinous Soft Tissues: No paravertebral masses. T12-L1: Normal appearance. L1-L2: Disc height is maintained. Circumferential disc bulge with hypertrophic facet joints results in mild central stenosis. No foraminal stenosis L2-L3: Disc space narrowing with circumferential disc bulge, ligamentum flavum laxity and hypertrophic facet joints results in severe central stenosis. Moderate left and no right foraminal stenosis L3-L4: Disc space narrowing with circumferential disc bulge, hypertrophic facet joints and ligamentum flavum laxity results in moderate central stenosis. Mild bilateral foraminal stenosis L4-L5: Disc space narrowing and disc bulge with hypertrophic facet joints results in moderate central stenosis. Moderate bilateral foraminal stenosis L5-S1: Disc space narrowing with asymmetric left disc bulge results in moderate central stenosis with effacement of the left lateral recess. Moderate bilateral foraminal stenosis IMPRESSION: Multilevel degenerative disc disease and arthropathy results in varying degrees of central and foraminal stenosis including severe central and moderate foraminal stenosis L2-3 Approved by: Nilesh Urrutia M.D. on 12/23/2022 at 14:07
== END ==
PROVIDERS: PCP Family Medicine; Referring Provider Orthopaedic Surgery; Visit Provider Orthopaedic Surgery
DX: M51.16 Intervertebral disc disorders with radiculopathy, lumbar region (principal); M51.17 Intervertebral disc disorders with radiculopathy, lumbosacral region; M47.816 Spondylosis without myelopathy or radiculopathy, lumbar region; M48.061 Spinal stenosis, lumbar region without neurogenic claudication; M48.07 Spinal stenosis, lumbosacral region; M25.551 Pain in right hip; M25.552 Pain in left hip
CPT/HCPCS: 72148

== ENCOUNTER → 2023-02-20 09:22 | Outpatient (CLI) | payer OTHER, SELFPAY ==
[2023-02-20 11:09] LABS: Add Manual Diff / Slide Review NO; Basophils Absolute Auto 100 /uL (0-100); Eosinophils Absolute Auto 200 /uL (0-450); Eosinophils Percent Auto 3.1 % (2-4); Hematocrit 33.6 % (41-53); Hemoglobin 11.2 g/dL (13.5-17.5); Lymphocytes Absolute Auto 2000 /uL (1100-4500); Lymphocytes Percent Auto 31.4 % (25-40); Mean Corpuscular HGB Conc 33.3 % (30-36); Mean Corpuscular Hemoglobin 25.7 PG (26-34); Mean Corpuscular Volume 77.3 fL (80-100); Monocytes Absolute Auto 400 /uL (0-900); Monocytes Percent Auto 6.2 % (3-14); Neutrophils Absolute Auto 3800 /uL (1500-7000); Neutrophils Percent Auto 58.3 % (50-75); Platelet Count 301 X10^3/uL (150-400); Red Blood Cell Count 4.35 X10^6/uL (4.5-5.9); Red Cell Distribution Width 16.2 % (11.6-14.8); White Blood Cell Count 6.4 X10^3/uL (4.5-11.0)
[2023-02-20 11:19] LABS: Alanine Aminotransferase 18 IU/L (<50); Albumin 3.9 g/dL (3.5-5.0); Albumin Globulin Ratio 1.3 (1.0-2.8); Alkaline Phosphatase 70 U/L (38-126); Aspartate Aminotransferase 24 IU/L (17-59); BUN Creatinine Ratio 17.4 (6-22); Bilirubin Total 0.3 mg/dL (0.2-1.3); Blood Urea Nitrogen 16 mg/dL (9-20); Calcium 8.7 mg/dL (8.4-10.2); Carbon Dioxide 26 mmol/L (22-32); Chloride 105 mmol/L (98-107); Cholesterol 122 mg/dL (140-199); Estimated Glomerular Filt Rate > 60 mL/min (>60); Glucose 118 mg/dL (80-110); HDL Cholesterol 38 mg/dL (40-60); HEMOLYSIS < 15 (0-50); LDL Cholesterol Calculated 58 mg/dL (<100); Potassium 3.9 mmol/L (3.4-5.1); Sodium 138 mmol/L (137-145); Total Protein 6.9 g/dL (6.3-8.2); Triglycerides 130 mg/dL (35-150)
[2023-02-20 11:36] LABS: Creatinine Urine Random 247.4 mg/dL
[2023-02-20 11:41] LABS: Microalbumi Creatinin Ratio Ur 5.6 ug/mg CR (<30); Microalbumin Urine Random 1.4 mg/dL (0-1.6)
[2023-02-20 11:49] LABS: Prostate Specific Antigen Scrn 1.08 ng/mL (0.1-4.0)
== END ==
PROVIDERS: PCP Family Medicine; Referring Provider Family Medicine; Visit Provider Family Medicine
DX: Z12.5 Encounter for screening for malignant neoplasm of prostate; I25.10 Atherosclerotic heart disease of native coronary artery without angina pectoris; E78.1 Pure hyperglyceridemia; E11.9 Type 2 diabetes mellitus without complications; E78.5 Hyperlipidemia, unspecified
CPT/HCPCS: 36415; 80053; 80061; 82043; 82570; 83036; 85025; G0103

== ENCOUNTER → 2023-04-21 07:41 | Outpatient (CLI) | payer OTHER, SELFPAY ==
[2023-04-21 09:42] LABS: Cholesterol 141 mg/dL (140-199); HDL Cholesterol 35 mg/dL (40-60); LDL Cholesterol Calculated 81 mg/dL (<100); Triglycerides 125 mg/dL (35-150)
== END ==
PROVIDERS: PCP Family Medicine; Referring Provider Nurse Practitioner Acute Care; Visit Provider Nurse Practitioner Acute Care
DX: E78.5 Hyperlipidemia, unspecified (principal)
CPT/HCPCS: 36415; 80061

== ENCOUNTER → 2023-05-26 09:08 | Outpatient (CLI) | payer OTHER, SELFPAY ==
--- NOTE | 2023-05-26 | DI.ECHO.S_ITS ---
[facility]---------+ [facility] +---------+ : : [address] : [address] : : : : [id number] : : : : Phone: [phone]---------+ Echocardiogram Report + + :Name: ISH QUEZADA Study Date: 05/26/2023 Height: 66 in : :[facility] ReadingLocation: Weight: 167 lb : : Gender: Male BSA: 1.9 m2 : :: 1955 Age: 68 yrs BP: 123/79 mmHg: :Reason For Study: Atherosclerotic Heart Disease : :Ordering Physician: SHELLI, : :KAM Performed By: Judith Jang : :Referring: KAM IRVIN : + + Interpretation Summary 1) Normal left ventricular thickness, size, and systolic function (EF 55-60%). 2) Normal right ventricular size with mildly reducd function.. 3) No significant valvular abnormalities. 4) Compared to the Echo done 09/22/2022, LVEF has improved from 50-55% to 55-60% on this study. Procedure: A two-dimensional transthoracic echocardiogram with color flow and Doppler was performed. The study quality was technically adequate. Comparison is made with the echocardiogram of 09/22/2022. The patient was in a bradycardic rhythm during the exam. Left Ventricle: The left ventricle is normal in size and wall thickness. The ejection fraction is estimated to be 55-60%. There are no obvious focal wall motion abnormalities noted but poor endocardial definition reduces the sensitivity for the detection of such. Diastolic parameters suggest a relaxation abnormality of the left ventricle, consistent with probable normal filling pressures. Right Ventricle: The right ventricle is normal size. Right ventricular systolic function is mildly reduced. Atria: The left atrial size is normal. Right atrial size is normal. There is no Doppler evidence for an interatrial shunt. Mitral Valve: The mitral valve is normal. There is no mitral valve stenosis. There is trace mitral regurgitation. Aortic Valve: The aortic valve is trileaflet. The aortic valve opens well. The aortic valve is mildly calcified. There is no aortic valve stenosis. No aortic regurgitation is present. Tricuspid Valve: The tricuspid valve is normal. There is no tricuspid stenosis. There is trace tricuspid regurgitation. The right ventricular systolic pressure is estimated to be at least 19 mmHg based on an estimated right atrial pressure of 3 mm Hg. Pulmonic Valve: The pulmonic valve leaflets are thin and pliable; valve motion is normal. There is no pulmonic valvular stenosis. There is trace pulmonic regurgitation. Great Vessels: The aortic root is normal size. The ascending aorta is normal in size. The pulmonary artery is normal size. The IVC is of normal diameter and collapses greater than 50% with a sniff. This suggests a low right atrial pressure of 3 mm Hg. Pericardium/ Pleura There is no pericardial effusion. There is no pleural effusion. MMode/2D Measurements & Calculations LVIDd: 4.5 cm LVOT diam: 2.2 cm LVIDs: 3.2 cm Ao root diam: 3.7 cm FS: 28.9 % asc Aorta Diam: 3.3 cm IVSd: 1.0 cm LVPWd: 0.90 cm LV sanchez. diameter/BSA (cm/m^2): 2.4 LV sys. diameter/BSA (cm/m^2): 1.7 LA A2 area: 12.2 cm2 RA long axis: 5.1 cm LA A4 area: 12.7 cm2 RA area: 13.7 cm2 LA length (vol): 4.7 cm RA vol: 31.3 ml LA vol: 27.7 ml RA : 16.9 ml/m2 LA vol index: 15.0 ml/m2 RVD1 (basal): 4.0 cm LVLs ap4: 6.4 cm LVLd ap2: 7.4 cm TAPSE_phl: 1.7 cm LVLs ap2: 6.2 cm Doppler Measurements & Calculations Ao V2 max: 154.0 cm/sec LVOT Max Hunter: 79.2 cm/sec Ao V2 mean: 102.5 cm/sec LV V1 max P.5 mmHg Ao max P.0 mmHg LV V1 VTI: 16.7 cm Ao mean P.0 mmHg SUSIE(I,D): 2.2 cm2 Ao V2 VTI: 30.3 cm SUSIE(V,D): 2.0 cm2 sev ratio: 0.55 SUSIE indexed to BSA (cm^2/m^2): 1.2 MV E max hunter: 49.4 cm/sec TR max hunter: 198.7 cm/sec MV A max hunter: 83.3 cm/sec TR max P.8 mmHg MV E/A: 0.59 PA V2 max: 93.4 cm/sec Med Peak E' Hunter: 7.1 cm/sec PA V2 mean: 58.1 cm/sec E/E' med: 7.0 PA mean P.0 mmHg Lat Peak E' Hunter: 8.3 cm/sec E/E' lat: 6.0 E/e' average: 6.5 MV dec time: 0.31 sec SV(LVOT): 65.2 ml AV VR_phl: 0.51 SUSIE(VTI)/BSA_phl: 0.94 Reading Physician:12:00 PM
== END ==
PROVIDERS: PCP Family Medicine; Referring Provider Internal Medicine Cardiovascular Disease; Visit Provider Internal Medicine Cardiovascular Disease
DX: I25.10 Atherosclerotic heart disease of native coronary artery without angina pectoris (principal)
CPT/HCPCS: 93306

== ENCOUNTER 2023-06-08 08:30 | Outpatient (RCR) | payer OTHER, SELFPAY | END 2023-06-08 10:30 | LOC: CAR 08:30 | PROVIDERS: PCP Family Medicine; Referring Provider Thoracic Surgery (Cardiothoracic Vascular Surgery); Visit Provider Thoracic Surgery (Cardiothoracic Vascular Surgery) | DX: Z95.1 Presence of aortocoronary bypass graft (principal) | CPT/HCPCS: 93798 ==

== ENCOUNTER → 2023-08-30 08:52 | Outpatient (CLI) | payer OTHER, SELFPAY ==
[2023-08-30 09:27] LABS: Add Manual Diff / Slide Review NO; Basophils Absolute Auto 100 /uL (0-100); Eosinophils Absolute Auto 200 /uL (0-450); Eosinophils Percent Auto 2.8 % (2-4); Hematocrit 41.2 % (41-53); Hemoglobin 13.9 g/dL (13.5-17.5); Lymphocytes Absolute Auto 1800 /uL (1100-4500); Lymphocytes Percent Auto 27.8 % (25-40); Mean Corpuscular HGB Conc 33.8 % (30-36); Mean Corpuscular Hemoglobin 28.1 PG (26-34); Mean Corpuscular Volume 83.4 fL (80-100); Monocytes Absolute Auto 500 /uL (0-900); Neutrophils Absolute Auto 3800 /uL (1500-7000); Neutrophils Percent Auto 60.4 % (50-75); Platelet Count 246 X10^3/uL (150-400); Red Blood Cell Count 4.94 X10^6/uL (4.5-5.9); Red Cell Distribution Width 15.1 % (11.6-14.8); White Blood Cell Count 6.4 X10^3/uL (4.5-11.0)
[2023-08-30 09:37] LABS: Alanine Aminotransferase 15 IU/L (<50); Albumin 4.5 g/dL (3.5-5.0); Albumin Globulin Ratio 1.5 (1.0-2.8); Alkaline Phosphatase 65 U/L (38-126); Aspartate Aminotransferase 21 IU/L (17-59); BUN Creatinine Ratio 16.8 (6-22); Bilirubin Total 0.6 mg/dL (0.2-1.3); Blood Urea Nitrogen 16 mg/dL (9-20); Calcium 10.1 mg/dL (8.4-10.2); Carbon Dioxide 25 mmol/L (22-32); Chloride 103 mmol/L (98-107); Cholesterol 138 mg/dL (140-199); Estimated Glomerular Filt Rate > 60 mL/min (>60); Globulin 3.1 g/dL (1.7-4.1); Glucose 116 mg/dL (80-110); HDL Cholesterol 44 mg/dL (40-60); HEMOLYSIS < 15 (0-50); LDL Cholesterol Calculated 59 mg/dL (<100); Potassium 4.6 mmol/L (3.4-5.1); Sodium 138 mmol/L (137-145); Total Protein 7.6 g/dL (6.3-8.2); Triglycerides 176 mg/dL (35-150)
[2023-08-30 09:39] LABS: Hemoglobin A1C% w Est Avg Glu 6.2 % (4.0-6.0)
== END ==
PROVIDERS: PCP Family Medicine; Referring Provider Family Medicine; Visit Provider Family Medicine
DX: D50.9 Iron deficiency anemia, unspecified (principal); E11.9 Type 2 diabetes mellitus without complications; I25.10 Atherosclerotic heart disease of native coronary artery without angina pectoris; E78.5 Hyperlipidemia, unspecified; I10 Essential (primary) hypertension
CPT/HCPCS: 36415; 80053; 80061; 83036; 85025

== ENCOUNTER → 2023-09-07 09:09 | Outpatient (CLI) | payer OTHER, SELFPAY ==
[2023-09-08 12:52] LABS: Fats, Neutral Normal (.); Fats, Total Normal (.)
[2023-09-13 11:13] LABS: Pancreatic Elastase, Fecal 78 (>200)
== END ==
PROVIDERS: PCP Family Medicine; Referring Provider Specialist; Visit Provider Specialist
DX: K52.9 Noninfective gastroenteritis and colitis, unspecified (principal)
CPT/HCPCS: 82656; 82705; 87177; 87329

== ENCOUNTER → 2024-02-09 11:16 | Outpatient (CLI) | payer OTHER, SELFPAY | PROVIDERS: PCP Family Medicine; Referring Provider Family Medicine; Visit Provider Family Medicine | DX: K52.9 Noninfective gastroenteritis and colitis, unspecified (principal) | CPT/HCPCS: 87045; 87177 ==

== ENCOUNTER → 2024-02-14 09:41 | Outpatient (CLI) | payer OTHER, SELFPAY ==
[2024-02-14 14:53] LABS: Clostridium Difficile Tox PCR Negative for C. diff (Negative)
== END ==
LOC: LAB 09:42
PROVIDERS: PCP Family Medicine; Referring Provider Family Medicine; Visit Provider Family Medicine
DX: K52.9 Noninfective gastroenteritis and colitis, unspecified (principal)
CPT/HCPCS: 87493

== ENCOUNTER → 2024-02-22 13:40 | Outpatient (CLI) | payer OTHER, SELFPAY ==
[2024-02-22 17:19] LABS: C-Reactive Protein Quant < 0.5 mg/dL (<1.0)
[2024-02-22 18:06] LABS: Vitamin B12 > 1000 pg/mL (239-931)
[2024-02-22 18:51] LABS: Folate 6.4 ng/mL (2.76-20.0)
== END ==
LOC: LAB 13:42
PROVIDERS: PCP Family Medicine; Referring Provider Specialist; Visit Provider Specialist
DX: D64.9 Anemia, unspecified (principal); K52.9 Noninfective gastroenteritis and colitis, unspecified; K90.9 Intestinal malabsorption, unspecified; K86.9 Disease of pancreas, unspecified
CPT/HCPCS: 36415; 82607; 82746; 82784; 83516; 86140

== ENCOUNTER → 2024-02-23 09:42 | Outpatient (CLI) | payer OTHER, SELFPAY ==
[2024-02-24 16:08] LABS: Fats, Neutral Normal (.); Fats, Total Normal (.)
== END ==
LOC: LAB 09:43
PROVIDERS: PCP Family Medicine; Referring Provider Specialist; Visit Provider Specialist
DX: K52.9 Noninfective gastroenteritis and colitis, unspecified (principal); D64.9 Anemia, unspecified; K90.9 Intestinal malabsorption, unspecified; K86.9 Disease of pancreas, unspecified
CPT/HCPCS: 82656; 82705

== ENCOUNTER → 2024-05-28 14:39 | Outpatient (CLI) | payer MEDICARE, SELFPAY | PROVIDERS: PCP Family Medicine; Referring Provider Specialist; Visit Provider Specialist | DX: K29.70 Gastritis, unspecified, without bleeding (principal); B96.81 Helicobacter pylori [H. pylori] as the cause of diseases classified elsewhere | CPT/HCPCS: 87338 ==

== ENCOUNTER → 2024-08-30 15:51 | Outpatient (CLI) | payer MEDICARE, SELFPAY ==
--- NOTE | 2024-08-30 15:52 | DI.MRI.S_ITS ---
PROCEDURE: MR LUMBAR SPINE WO CON INDICATIONS: LUMBAR STENOSIS TECHNIQUE: Noncontrast sagittal T1 spin echo and T2 fast echo, sagittal STIR, and T2 fast spin echo through the lumbar spine. In cases with scoliosis, additional coronal T2 fast spin echo may be performed. COMPARISON: [facility], MR, MR LUMBAR SPINE WO CON, 12/23/2022, 8:51. FINDINGS: Image quality: Diagnostic Alignment and Curvature: Straightening of normal lumbar lordosis Bone Marrow: No acute fracture. Mild Modic changes, especially at L5-S1, similar to prior Spinal Cord: Cord terminates in normal position. There is clumping of the cauda equina nerve roots at multiple levels. Paraspinous Soft Tissues: No paravertebral fluid collection or mass T12-L1: Small diffuse disc bulge. Mild facet arthropathy. Mild central narrowing. L1-L2: Small diffuse disc bulge. [id number] facet arthropathy. Mild central narrowing affecting both subarticular recesses. Ligamentum hypertrophy. L2-L3: Central protrusion and annular fissure. Diffuse disc bulge. Moderate facet arthropathy. Severe central stenosis. Ligamentum hypertrophy. Mild right and moderate left neural foraminal narrowing. L3-L4: Moderate central protrusion and diffuse bulge. Moderate to severe central narrowing affecting both subarticular recesses. Ligamentum hypertrophy and facet arthropathy. [id number] bilateral neural foraminal narrowing. L4-L5: Moderate central protrusion and diffuse disc bulge, slightly asymmetric to the right. Moderate facet arthropathy. Moderate central narrowing. Ligamentum hypertrophy. Mild left and moderate right neural foraminal narrowing. L5-S1: Disc extrusion and diffuse disc bulge. Moderate facet arthropathy. There is moderate bilateral neural foraminal narrowing. IMPRESSION: Spondylotic changes as described above, with areas of stenosis most severe in the thecal sac at L2-L3. Findings are not significantly changed from prior. Dictated by: Spencer Pennington M.D. on 08/30/2024 at 17:06 Approved by: Spencer Pennington M.D. on 08/30/2024 at 17:11
== END ==
LOC: MRI 15:51
PROVIDERS: PCP Family Medicine; Referring Provider Physical Medicine & Rehabilitation; Visit Provider Physical Medicine & Rehabilitation
DX: M48.062 Spinal stenosis, lumbar region with neurogenic claudication (principal); M48.07 Spinal stenosis, lumbosacral region; M47.816 Spondylosis without myelopathy or radiculopathy, lumbar region; M47.817 Spondylosis without myelopathy or radiculopathy, lumbosacral region; M51.379 Other intervertebral disc degeneration, lumbosacral region without mention of lumbar back pain or lower extremity pain; M51.369 Other intervertebral disc degeneration, lumbar region without mention of lumbar back pain or lower extremity pain
CPT/HCPCS: 72148

== ENCOUNTER 2024-09-20 21:50 | Emergency (ER) | payer MEDICARE, SELFPAY ==
[2024-09-20 22:00] VITALS: BP 113/64; PULSE 58; RESP 17; TEMP 36.9; O2SAT 94; BMI 29.3
--- NOTE | 2024-09-20 23:03 | DI.RAD.S_ITS ---
PROCEDURE: XR FINGER LT MIN 2V INDICATIONS: left middle finger laceration TECHNIQUE: PA hand, 2 views of the middle finger acquired. COMPARISON: None. FINDINGS: Bones: No acute fractures or dislocations. No suspicious bony lesions. Severe joint space narrowing at the capitolunate articulation. Degenerative changes at the 1st carpometacarpal and triscaphe joint. Soft tissues: No suspicious soft tissue calcifications. Mild soft tissue swelling in the middle finger. No radiopaque foreign body is seen. Surgical clips project over the wrist. IMPRESSION: No acute osseous abnormality. If there is continued clinical concern or persistent symptoms, repeat radiographs or cross-sectional imaging (e.g. CT, MRI) may be helpful for further evaluation. Approved by: Baudilio Jones M.D. on 09/20/2024 at 23:57
[2024-09-20] MEDS: TET,DIPH,PERTUSS(ACELL),VAC/PF 0.5 ML SYRINGE IM (23:33)
--- NOTE | 2024-09-21 00:01 | ED.WOUNDLAC ---
HPI - Wound/Laceration General Chief Complaint: Wound/Laceration Stated Complaint: L Middle Finger Injury Time Seen by Provider: 09/20/24 23:03 Source: patient Mode of arrival: Ambulatory History of Present Illness HPI narrative: 69-year-old male past medical history of hypertension diabetes, comes into the ED from home for wound to the distal middle finger, states he cut it with a kitchen knife proximally 1 week ago. States that it has started bleeding today after he took off his Band-Aid, after presentation here in the emergency department patient has bleeding controlled without any intervention, he has not on any blood thinners, tetanus was updated here in the emergency department. Denies any other injuries or symptoms at this time Related Data Home Medications Medication Instructions Recorded Confirmed aspirin 81 mg tablet,delayed 81 mg PO QPM 02/19/19 02/08/24 release CoQ10 PO 06/03/20 02/08/24 omega-3 fatty acids 100 mg mg PO 06/03/20 02/08/24 chewable tablet atorvastatin 80 mg tablet 80 mg PO BEDTIME 02/21/23 02/08/24 clopidogrel 75 mg tablet 75 mg PO DAILY 02/21/23 02/08/24 isosorbide mononitrate 30 mg 30 mg PO DAILY 02/21/23 02/08/24 tablet,extended release 24 hr metoprolol succinate 25 mg 25 mg PO BID 02/21/23 02/08/24 tablet,extended release 24 hr gabapentin 600 mg tablet 600 mg PO TID 03/02/23 02/08/24 magnesium oxide 400 mg (241.3 mg 400 mg PO BID 04/27/23 02/08/24 magnesium) tablet Creon See Rx Instructions PO .COMPLEX 02/08/24 Previous Rx's Medication Instructions Recorded glucometer #1 ea 07/07/20 blood sugar diagnostic (True #100 strips 12/11/23 Metrix Glucose Test Strip) glimepiride 2 mg tablet 2 mg PO DAILY #90 tabs 02/20/24 alcohol swabs (DropSafe Alcohol 1 pad topical QID PRN check blood 03/04/24 Prep Pads) sugars twice a day #300 ea potassium chloride 10 mEq 10 meq PO DAILY #90 caps 04/09/24 capsule,extended release furosemide 20 mg tablet 20 mg PO DAILY #90 tabs 05/07/24 lisinopril 20 mg tablet 20 mg PO DAILY #100 tabs 05/21/24 metformin 500 mg tablet 500 mg PO BID #200 tabs 05/30/24 omeprazole 20 mg capsule,delayed 20 mg PO DAILY #90 caps 06/25/24 release fenofibrate 54 mg tablet 54 mg PO DAILY #90 tabs 07/04/24 lancets 33 gauge (TRUEplus Lancets) #200 ea 07/04/24 cephalexin 500 mg capsule 500 mg PO Q6H 7 days #28 caps 09/21/24 Allergies Allergy/AdvReac Type Severity Reaction Status Date / Time codeine [CODEINE] Allergy Intermediate Rash Verified 02/08/24 13:47 Review of Systems Review of Systems Narrative: General: Denies fever, chills, weight loss HEENT: Denies headache, eye drainage, eye irritation, head trauma, sore throat, voice change Cardiovascular: Denies any chest pain, palpitations, shortness of breath, tachycardia Respiratory: Denies any shortness of breath, cough, wheeze, stridor GI/: Denies any abdominal pain, nausea, vomiting, diarrhea, bright red blood per rectum, melanotic stools, urinary frequency, urinary retention, dysuria, hematuria MSK: Denies any joint pain, muscle pains, swelling Skin: Cut to the tip of his left middle finger Neuro: Denies any headache, lightheadedness, dizziness, fainting, weakness Psych: Denies SI/HI Patient History Medical History (Updated 09/21/24 @ 00:11 by Antonio Caal DO) Pancreatic insufficiency Giardia Chronic diarrhea Microcytic anemia Lumbar disc disease with radiculopathy Chronic hip pain, bilateral CAD (coronary artery disease) MENDEZ (dyspnea on exertion) Dysphagia Hypertriglyceridemia Cranial somatic dysfunction Cranial nerve IV palsy Upper extremity somatic dysfunction DM2 (diabetes mellitus, type 2) Wears glasses Gout (~1994) Carpal tunnel syndrome (~2016) Mumps (~1962) Chicken pox (~1962) History of heart attack Myocardial infarction Hyperlipidemia Surgical History S/P CABG x 3 History of vocal cord polypectomy Anesthesia History of ankle surgery (~2018) History of coronary angiogram History of umbilical hernia repair (~2000) History of repair of ACL (~2011) History of carpal tunnel release (~2016) History of repair of rotator cuff Family History Father Brain aneurysm Mother Lung cancer Social History Smoking Status: Former smoker eating out: rarely or never Smoking Status: Former smoker alcohol intake frequency: a few times a month Exam Narrative Exam Narrative: General: Cooperative, comfortable, well-developed, not in acute distress HEENT: Normocephalic, atraumatic, PERRLA, normal sclera, eyelids normal, Neck: Active full range of motion, atraumatic Chest: Normal to inspection, negative crepitus, no overlying erythema ecchymosis Respiratory: Normal respiratory effort, not in acute respiratory distress, clear to auscultation bilaterally negative cough, wheeze, tachypnea, rhonchi, rales Cardiology: Regular rate rhythm negative gallop, murmur, rubs GI/: Normal to inspection, soft, nonrigid, no tenderness to palpation, exam deferred MSK: Full range of active range of motion of all 4 extremities, atraumatic Skin: Well-healing laceration noted to the tip of the distal left middle finger, no disruption to the lunula of the nail, not actively bleeding no streaking no purulent discharge neurovascularly intact Neuro: Alert awake oriented x3, moves all 4 extremities spontaneously, cranial nerves intact, able to answer all questions appropriately follows commands appropriately Psych: Cooperative, negative suicidal or homicidal ideations Initial Vital Signs Initial Vital Signs: Vital Signs Temperature 98.5 F 09/20/24 22:00 Pulse Rate 58 L 09/20/24 22:00 Respiratory Rate 17 09/20/24 22:00 Blood Pressure 113/64 09/20/24 22:00 Pulse Oximetry 94 09/20/24 22:00 Oxygen Delivery Method Room Air 09/20/24 22:00 Course Orders Ordered: ED Orders 09/20/24 23:03 XR finger LT min 2V Stat Discontinued Medications Diphtheria/Tetanus/Acell Pertussis (Tet,Diph,Pertuss(Acell),Vac/Pf 0.5 Ml Syringe) 0.5 ml IM .ONCE ONE Stop: 09/20/24 22:08 Last Admin: 09/20/24 23:33 Dose: 0.5 ml Documented By: SUZANNE Vital Signs Vital signs: Vital Signs - 8 hr 09/20/24 22:00 Temperature 98.5 F Pulse Rate 58 L Respiratory Rate 17 Blood Pressure 113/64 Pulse Oximetry 94 Oxygen Delivery Method Room Air MDM - Wound/Laceration Differential Diagnosis Differential diagnosis: Likely laceration, abrasion, avulsion of skin and other (Cellulitis) Imaging Data Extremity x-ray #1: Radiologist's Impression: [address] [address] XRay Report Signed Patient: Darnell Goel MR#: [id number] : 1955 Acct:[id number] Age/Sex: 69 / M Date of Service: 09/20/24 Loc: ED Accession Number: [id number] Procedure: XR finger LT min 2V Ordering Provider: Antonio Caal D.O. PROCEDURE: XR FINGER LT MIN 2V INDICATIONS: left middle finger laceration TECHNIQUE: PA hand, 2 views of the middle finger acquired. COMPARISON: None. FINDINGS: Bones: No acute fractures or dislocations. No suspicious bony lesions. Severe joint space narrowing at the capitolunate articulation. Degenerative changes at the 1st carpometacarpal and triscaphe joint. Soft tissues: No suspicious soft tissue calcifications. Mild soft tissue swelling in the middle finger. No radiopaque foreign body is seen. Surgical clips project over the wrist. IMPRESSION: No acute osseous abnormality. If there is continued clinical concern or persistent symptoms, repeat radiographs or cross-sectional imaging (e.g. CT, MRI) may be helpful for further evaluation. MDM Narrative Medical decision making narrative: 69-year-old male with history of diabetes hypertension hyperlipidemia not on any blood thinners presents to the ED for bleeding to the distal left index finger states he cut this on Monday with his kitchen knife states bleeding was controlled until today when he was removing his Band-Aid decided bleeding and bleeding stopped after presentation here in the emergency department without any intervention. No indication to remove nail bed x-ray without any fracture, patient instructed to use nonadherent dressing to the finger, tetanus was updated, patient will be started prophylactically on antibiotics instructed to follow up with primary care strict return precautions given verbalized understanding of this and agrees to being discharged home with outpatient follow up Discharge Plan Departure Patient Disposition: Home Clinical Impression: Finger laceration Activity Restrictions/Additional Instructions: Please follow up with the primary care doctor Please read the discharge instructions sheet carefully and bring all papers to all doctor follow-up visits, as it may contain information that your doctor may want to see. Disease processes change and evolve, if your symptoms worsen or if you develop any new symptoms that are concerning to you please return for evaluation. Your evaluation today does not show any evidence of any life-threatening/serious illnesses requiring admission to the hospital or surgery. Please follow-up with your doctor for re-evaluation in approximately 1 day. Seek immediate medical attention for any worrisome symptoms. *If you do not have a primary care provider please contact the [facility] Resource line at [phone]. They will ask some questions about your medical history and help get you set up with a doctor in the community. Prescriptions: New cephalexin 500 mg capsule 500 mg PO Q6H 7 Days Qty: 28 0RF No Action (DME) glucometer See Rx Instructions .Route .MEDSUPPLY Qty: 1 0RF Rx Instructions: As directed gabapentin 600 mg tablet 600 mg PO TID (DME) True Metrix Glucose Test Strip Strip See Rx Instructions .ROUTE .COMPLEX Qty: 100 11RF Dose Instruction: USE TWICE A DAY Rx Instructions: check blood sugar twice a day glimepiride 2 mg tablet 2 mg PO DAILY Qty: 90 3RF alcohol swabs [DropSafe Alcohol Prep Pads] Pads, Medicated 1 pad topical QID PRN (Reason: check blood sugars twice a day) Qty: 300 3RF Rx Instructions: DROPSAFE ALCOHOL PREP PADS 70 % Pad USE DIRECTED [id number] potassium chloride 10 mEq capsule, extended release 10 meq PO DAILY Qty: 90 2RF furosemide 20 mg tablet 20 mg PO DAILY Qty: 90 3RF lisinopril 20 mg tablet 20 mg PO DAILY Qty: 100 3RF metformin 500 mg tablet 500 mg PO BID Qty: 200 3RF omeprazole 20 mg capsule,delayed release(DR/EC) 20 mg PO DAILY Qty: 90 0RF (DME) lancets [TRUEplus Lancets] 33 gauge misc See Rx Instructions .ROUTE .COMPLEX Qty: 200 3RF Dose Instruction: TEST BLOOD SUGAR TWICE DAILY FOR DIABETES Rx Instructions: TEST BLOOD SUGAR TWICE DAILY FOR DIABETES fenofibrate 54 mg tablet 54 mg PO DAILY Qty: 90 3RF CoQ10 1,200 mg PO omega-3 fatty acids 100 mg tablet,chewable PO atorvastatin 80 mg tablet 80 mg PO BEDTIME clopidogrel 75 mg tablet 75 mg PO DAILY isosorbide mononitrate 30 mg tablet extended release 24 hr 30 mg PO DAILY metoprolol succinate 25 mg tablet extended release 24 hr 25 mg PO BID magnesium oxide 400 mg (241.3 mg magnesium) tablet 400 mg PO BID Creon 24,000 mg capsule See Rx Instructions PO .COMPLEX Rx Instructions: orally; Take 2 caps with first bite of each meal and 1 cap with fat containing snacks. aspirin 81 mg Tablet,Delayed Release (Dr/Ec) 81 mg PO QPM Referrals: Fabrizio Carranza DO [Primary Care Provider] - Stand Alone Forms: Patient Portal/API/Survey
[2024-09-21] MEDS: cephALEXin 250 MG CAPSULE 500 MG PO (00:20)
[2024-09-21 00:23] VITALS: BP 114/60; PULSE 56; RESP 16; O2SAT 100
== END 2024-09-21 00:25 | disposition home or self-care (01) ==
PROVIDERS: Emergency Provider Student in an Organized Health Care Education/Training Program; PCP Family Medicine
DX: S61.211A Laceration without foreign body of left index finger without damage to nail, initial encounter (principal); W26.0XXA Contact with knife, initial encounter; Z23 Encounter for immunization; Z79.82 Long term (current) use of aspirin; I10 Essential (primary) hypertension; E78.5 Hyperlipidemia, unspecified; E11.9 Type 2 diabetes mellitus without complications; Z79.84 Long term (current) use of oral hypoglycemic drugs
CPT/HCPCS: 73140; 90471; 99284; 90715

== ENCOUNTER → 2024-09-27 10:12 | Outpatient (CLI) | payer MEDICARE, SELFPAY ==
[2024-09-27 12:10] LABS: Add Manual Diff / Slide Review NO; Basophils Absolute Auto 100 /uL (0-100); Basophils Percent Auto 1.4 % (0-2); Eosinophils Absolute Auto 200 /uL (0-450); Eosinophils Percent Auto 2.8 % (2-4); Hematocrit 40.3 % (41-53); Hemoglobin 13.4 g/dL (13.5-17.5); Lymphocytes Absolute Auto 1800 /uL (1100-4500); Lymphocytes Percent Auto 30.8 % (25-40); Mean Corpuscular HGB Conc 33.3 % (30-36); Mean Corpuscular Hemoglobin 27.9 PG (26-34); Mean Corpuscular Volume 83.8 fL (80-100); Monocytes Absolute Auto 400 /uL (0-900); Monocytes Percent Auto 6.5 % (3-14); Neutrophils Absolute Auto 3300 /uL (1500-7000); Neutrophils Percent Auto 58.5 % (50-75); Platelet Count 252 X10^3/uL (150-400); Red Blood Cell Count 4.81 X10^6/uL (4.5-5.9); Red Cell Distribution Width 14.9 % (11.6-14.8); White Blood Cell Count 5.7 X10^3/uL (4.5-11.0)
[2024-09-27 12:39] LABS: Alanine Aminotransferase 24 IU/L (<50); Albumin 4.4 g/dL (3.5-5.0); Albumin Globulin Ratio 1.8 (1.0-2.8); Alkaline Phosphatase 76 U/L (38-126); Aspartate Aminotransferase 29 IU/L (17-59); Bilirubin Total 0.6 mg/dL (0.2-1.3); Blood Urea Nitrogen 12 mg/dL (9-20); Calcium 9.6 mg/dL (8.4-10.2); Carbon Dioxide 22 mmol/L (22-32); Chloride 108 mmol/L (98-107); Cholesterol 161 mg/dL (140-199); Estimated Glomerular Filt Rate > 60 mL/min (>60); Globulin 2.5 g/dL (1.7-4.1); Glucose 96 mg/dL (80-110); HDL Cholesterol 41 mg/dL (40-60); HEMOLYSIS < 15 (0-50); LDL Cholesterol Calculated 87 mg/dL (<100); Potassium 4.7 mmol/L (3.4-5.1); Sodium 140 mmol/L (137-145); Total Protein 6.9 g/dL (6.3-8.2); Triglycerides 163 mg/dL (35-150)
[2024-09-27 20:05] LABS: Vitamin D 25 Hydroxy (D3) 29.2 ng/mL (30.0-100.0)
== END ==
PROVIDERS: PCP Family Medicine; Referring Provider Family Medicine; Visit Provider Family Medicine
DX: D50.9 Iron deficiency anemia, unspecified (principal); E11.9 Type 2 diabetes mellitus without complications; I25.10 Atherosclerotic heart disease of native coronary artery without angina pectoris; E78.1 Pure hyperglyceridemia; E78.5 Hyperlipidemia, unspecified; I10 Essential (primary) hypertension
CPT/HCPCS: 36415; 80053; 80061; 82306; 83036; 85025

== ENCOUNTER → 2025-01-27 15:05 | Outpatient (CLI) | payer MEDICARE, SELFPAY ==
[2025-01-27 16:45] LABS: Add Manual Diff / Slide Review NO; Basophils Absolute Auto 100 /uL (0-100); Eosinophils Absolute Auto 100 /uL (0-450); Eosinophils Percent Auto 1.8 % (2-4); Hematocrit 39.2 % (41-53); Hemoglobin 13.2 g/dL (13.5-17.5); Lymphocytes Absolute Auto 1700 /uL (1100-4500); Lymphocytes Percent Auto 22.6 % (25-40); Mean Corpuscular HGB Conc 33.8 % (30-36); Mean Corpuscular Hemoglobin 28.6 PG (26-34); Mean Corpuscular Volume 84.8 fL (80-100); Monocytes Absolute Auto 500 /uL (0-900); Monocytes Percent Auto 6.5 % (3-14); Neutrophils Absolute Auto 5100 /uL (1500-7000); Neutrophils Percent Auto 68.1 % (50-75); Platelet Count 263 X10^3/uL (150-400); Red Blood Cell Count 4.61 X10^6/uL (4.5-5.9); Red Cell Distribution Width 14.8 % (11.6-14.8); White Blood Cell Count 7.5 X10^3/uL (4.5-11.0)
[2025-01-27 16:53] LABS: Hemoglobin A1C% w Est Avg Glu 5.7 % (4.0-6.0)
[2025-01-27 17:05] LABS: Alanine Aminotransferase 22 IU/L (<50); Albumin 4.7 g/dL (3.5-5.0); Albumin Globulin Ratio 1.8 (1.0-2.8); Alkaline Phosphatase 78 U/L (38-126); Aspartate Aminotransferase 36 IU/L (17-59); BUN Creatinine Ratio 13.3 (6-22); Bilirubin Total 0.7 mg/dL (0.2-1.3); Blood Urea Nitrogen 17 mg/dL (9-20); Calcium 9.8 mg/dL (8.4-10.2); Carbon Dioxide 26 mmol/L (22-32); Chloride 104 mmol/L (98-107); Cholesterol 163 mg/dL (140-199); Estimated Glomerular Filt Rate > 60 mL/min (>60); Globulin 2.6 g/dL (1.7-4.1); Glucose 66 mg/dL (70-99); HDL Cholesterol 44 mg/dL (40-60); HEMOLYSIS < 15 (0-50); LDL Cholesterol Calculated 81 mg/dL (<100); Potassium 5.2 mmol/L (3.4-5.1); Sodium 139 mmol/L (137-145); Total Protein 7.3 g/dL (6.3-8.2); Triglycerides 188 mg/dL (35-150)
[2025-01-27 17:16] LABS: Creatinine Urine Random 78.57 mg/dL
[2025-01-27 17:23] LABS: Vitamin D 25 Hydroxy (D3) 28.4 ng/mL (30.0-100.0)
[2025-01-27 17:23] LABS: Microalbumin Urine Random < 0.6 mg/dL (0-1.6)
[2025-01-27 17:35] LABS: Prostate Specific Antigen Scrn 1.49 ng/mL (0.1-4.0)
== END ==
PROVIDERS: PCP Family Medicine; Referring Provider Internal Medicine Cardiovascular Disease; Visit Provider Internal Medicine Cardiovascular Disease
DX: E11.9 Type 2 diabetes mellitus without complications (principal); Z12.5 Encounter for screening for malignant neoplasm of prostate; E55.9 Vitamin D deficiency, unspecified; I25.10 Atherosclerotic heart disease of native coronary artery without angina pectoris; D50.9 Iron deficiency anemia, unspecified; E78.1 Pure hyperglyceridemia; E78.5 Hyperlipidemia, unspecified; N18.9 Chronic kidney disease, unspecified; I12.9 Hypertensive chronic kidney disease with stage 1 through stage 4 chronic kidney disease, or unspecified chronic kidney disease
CPT/HCPCS: 36415; 80053; 80061; 82043; 82306; 82570; 83036; 85025; G0103

== ENCOUNTER 2025-05-27 06:19 | Day surgery (SDC) | payer MEDICARE, SELFPAY ==
[2025-05-19 14:57] VITALS: BMI 30.7
[2025-05-27] VITALS (7 sets, daily range): BP systolic 127–157; BP diastolic 68–85; PULSE 57–80; RESP 12–20; TEMP 36.3–36.6; O2SAT 97–100
--- NOTE | 2025-05-27 | DI.RAD.S_ITS ---
PROCEDURE: XR ANKLE LT 2V INDICATIONS: LT ANKLE HARDWARE REMOVAL TECHNIQUE: 1 intraoperative fluoroscopic views of the ankle were acquired. COMPARISON: [facility], CR, XR ANKLE LT MIN 3V, 02/19/2019, 10:19. FINDINGS: Bones: Intraoperative fluoroscopic image shows 2 surgical screws in distal tibia. Ankle mortise is congruent. IMPRESSION: Fluoro guidance was provided intraoperatively for surgical hardware removal performed by ordering physician. Dictated by: Brien Hicks M.D. on 05/27/2025 at 9:05 Approved by: Brien Hicks M.D. on 05/27/2025 at 9:06
[2025-05-27] MEDS: ACETAMINOPHEN 325 MG TABLET 975 MG PO (07:08)
[2025-05-27] MEDS: LACTATED RINGERS 1,000 ML 42 ML IV (07:09)
--- NOTE | 2025-05-27 07:24 | PM.PREOP ---
Pre-operative Note COVID-19 COVID-19 status: Not tested Interval Note History & Physical reviewed/Exam performed by Physician: Yes Changes to H&P: No
--- NOTE | 2025-05-27 07:25 | PM.HP.IH.1 ---
History of Present Illness History of Present Illness Chief complaint: [facility] [place]: Chief Complaint: Left ankle pain Notes Clinic Notes: 70-year-old male with left ankle pain. He has a history in 2019 of an open reduction internal fixation of a left ankle fracture. He states that the outer aspect of his ankle is tender when there is pressure placed onto it. He occasionally will have a sharp pain while ambulating however this does not happen very often. Physical exam reveals a well-developed well-nourished 70-year-old in no acute distress Evaluation of his left ankle demonstrates he has well-healed surgical scars. He does have tenderness to palpation over the medial and lateral buttons. He has no tenderness to palpation over the anterior screws. He has minimal anteromedial and anterolateral joint line tenderness to palpation. His range motion testing shows he can plantar flex to 30? dorsiflex to 20?. He has 5/5 tibialis anterior gastroc soleus EHL and FHL strength. Three views of the left ankle demonstrate 2 suture buttons medially and laterally and 2 anterior to posterior screws. His fractures are well healed. He does have some overgrowth of his medial malleoli. He stated it said he had a medial malleolar fracture. This was not fixed. [facility] Medical History (Updated 05/15/25 @ 15:04 by Fabrizio Carranza DO) CAD (coronary artery disease) Carpal tunnel syndrome (~2016) Chicken pox (~1962) Chronic diarrhea Chronic hip pain, bilateral Chronic pain of left ankle 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 DM2 (diabetes mellitus, type 2) MENDEZ (dyspnea on exertion) Dry eyes, bilateral Dysphagia Episodic weakness Giardia Gout (~1994) History of heart attack History of smoking greater than 50 pack years Hyperlipidemia Hypertriglyceridemia Lumbar disc disease with radiculopathy Microcytic anemia Mumps (~1962) Myocardial infarction Obesity (BMI 30.0-34.9) Orthostatic hypotension Pancreatic insufficiency Upper extremity somatic dysfunction Vitamin D deficiency Vitamin D deficiency due to chronic kidney disease Wears glasses Surgical History (Updated 05/19/25 @ 15:06 by Leisa Butler RN) Anesthesia History of ankle surgery (~2018) History of carpal tunnel release (~2016) History of coronary angiogram History of repair of ACL (~2011) History of repair of rotator cuff History of umbilical hernia repair (~2000) History of vocal cord polypectomy S/P CABG x 3 (01/06/23) S/P lumbar laminectomy Family History Father Brain aneurysm Mother Lung cancer Social History Smoking Status: Former smoker eating out: rarely or never Meds Home Medications and Allergies Home Medications ?Medication ?Instructions ?Recorded ?Confirmed ?Type aspirin 81 mg tablet,delayed 81 mg PO QPM 02/19/19 05/27/25 History release CoQ10 PO 06/03/20 05/15/25 History omega-3 fatty acids 100 mg mg PO 06/03/20 05/15/25 History chewable tablet glucometer #1 ea 07/07/20 05/15/25 Rx isosorbide mononitrate 30 mg 30 mg PO DAILY 02/21/23 05/27/25 History tablet,extended release 24 hr metoprolol succinate 25 mg 25 mg PO BID 02/21/23 05/27/25 History tablet,extended release 24 hr magnesium oxide 400 mg (241.3 mg 400 mg PO BID 04/27/23 05/27/25 History magnesium) tablet blood sugar diagnostic (True #100 strips 12/11/23 05/15/25 Rx Metrix Glucose Test Strip) alcohol swabs (DropSafe Alcohol 1 pad topical QID PRN check blood 03/04/24 05/15/25 Rx Prep Pads) sugars twice a day #300 ea furosemide 20 mg tablet 20 mg PO DAILY #90 tabs 05/07/24 05/27/25 Rx lisinopril 20 mg tablet 20 mg PO DAILY #100 tabs 05/21/24 05/27/25 Rx omeprazole 20 mg capsule,delayed 20 mg PO DAILY #90 caps 06/25/24 05/27/25 Rx release fenofibrate 54 mg tablet 54 mg PO DAILY #90 tabs 07/04/24 05/27/25 Rx lancets 33 gauge (TRUEplus Lancets) #200 ea 07/04/24 05/15/25 Rx atorvastatin 80 mg tablet 80 mg PO BEDTIME #90 tabs 10/04/24 05/27/25 Rx ibuprofen 800 mg tablet 800 mg PO BID PRN pain #180 tabs 10/04/24 05/27/25 Rx glimepiride 2 mg tablet 2 mg PO DAILY #90 tabs 02/18/25 05/27/25 Rx metformin 500 mg tablet 500 mg PO BID #180 tabs 04/03/25 05/27/25 Rx potassium chloride 10 mEq 10 meq PO DAILY #90 caps 04/16/25 05/27/25 Rx capsule,extended release gabapentin 600 mg tablet 600 mg PO TID #90 tabs 04/18/25 05/27/25 Rx ondansetron 4 mg disintegrating 4 mg PO Q8H PRN nausea and 04/24/25 05/27/25 Rx tablet vomiting #14 tabs oxycodone 5 mg tablet 5 mg PO Q4H PRN pain #10 tabs 04/24/25 05/27/25 Rx Allergies Allergy/AdvReac Type Severity Reaction Status Date / Time codeine (CODEINE) Allergy Intermediate Rash Verified 05/27/25 06:41 Exam Vital Signs (past 8 hours): - 05/27/25 06:45 Temperature 97.3 F L Pulse Rate 57 L Respiratory Rate 15 Blood Pressure 130/74 Pulse Oximetry 100 Oxygen Delivery Method Room Air Oxygen Delivery Method Room Air Objective Labs Labs: Laboratory Results - last 24 hr 05/27/25 06:45 POC Whole Bld Glucose 86 Assessment & Plan Assessment and plan (1) Orthopedic device, implant, or graft complication: Status: Acute Plan I discussed different options with the patient. He would like to pursue surgical removal of the suture buttons. I discussed with in the risks, benefits and alternatives of surgical versus nonsurgical treatment to include but not limited to damage to arteries, veins, nerves, need for additional surgery. I also discussed with him risks of infection and the risk that removing the buttons does not completely relieve his pain. He understands all this and wishes to proceed. We will proceed with removal of the suture buttons. Time-Based Coding :: [TOTAL MINUTES] spent with patient and on the chart (including review of chart, obtaining history, exam, reviewing outside data, placing orders, documenting exam and treatment plan, and counseling patient) on [DATE]. PROFEE Script Supervisor Document charge(s): No
--- NOTE | 2025-05-27 09:02 | PM.OP.1 ---
Operative Date/Time/Diagnoses Date of procedure: 05/27/25 Time of procedure: 08:03 Pre-op diagnosis: Symptomatic hardware left ankle. Post-op diagnosis: same Procedure & Clinicians Procedure: Removal of suture buttons left ankle. Same procedure(s) as scheduled: Yes Surgeon: Fiona Joseph Assisted?: No Anesthesia Type: General Operative Notes Findings: suture buttons in place Closure Type: primary Specimen(s): none sent Applied: none Estimated Blood Loss (mL): 5 Blood products transfused: none Tourniquet time (min): 33 Procedure in detail: Patient was met in the preoperative hold area. His left lower extremity was signed as correct extremity. He was taken back to the operating room and placed in supine position. General anesthesia was induced. Patient was prepped and draped in the standard sterile fashion a time-out was performed confirming the correct patient, correct procedure, correct extremity and it was in the operative site. He was given 2 g of IV Ancef. Fluoroscopy was utilized to localize his suture buttons. An Esmarch was used to exsanguinate the left lower extremity the tourniquet was inflated 250 mmHg. An incision was made on the lateral aspect of the ankle and dissection was taken down of the suture buttons. The suture buttons were removed as well as the associated sutures. The wounds were curetted until there was healthy bleeding bone. Next the medial incision was made. Dissection was taken out of the buttons and similarly the buttons were cleared of bone and removed in their entirety. The button sites were curetted and sutures were rongeured. The wounds were copiously irrigated and closed with 2-0 Vicryl and 3-0 nylon. The tourniquet was platelet for tourniquet time of 33 minutes. 12 cc of 0.25% Marcaine plain was infiltrated into the incision sites. A sterile dressing was applied consisting of Xeroform, plain gauze, sterile Webril, and a 4 in Howard wrap. The patient was woken taken to the PACU in stable condition. All counts were correct at the end of the case. Complications: none Post-operative Condition: stable Disposition: PACU Plan for aftercare: Weight-bearing as tolerated. Follow up in 2 weeks for suture removal.
[2025-05-27] MEDS: ALBUTEROL/IPRATROPIUM 3 ML AMPUL INH (09:04)
== END 2025-05-27 10:20 | disposition home or self-care (01) ==
PROVIDERS: Family Provider Family Medicine; PCP Family Medicine; Referring Provider Orthopaedic Surgery; Visit Provider Orthopaedic Surgery
PROC: (CPT 20680; principal; 2025-05-27 07:45)
DX: T85.848A Pain due to other internal prosthetic devices, implants and grafts, initial encounter (principal)
CPT/HCPCS: 20680; 73600; 76000; 82962; J0689; J1885; J2405; J2704; J3010; J7120

== ENCOUNTER → 2025-06-27 10:22 | Outpatient (CLI) | payer MEDICARE, SELFPAY ==
[2025-06-27 11:32] LABS: Hematocrit 38.7 % (41-53); Hemoglobin 13.0 g/dL (13.5-17.5); Mean Corpuscular HGB Conc 33.6 % (30-36); Mean Corpuscular Hemoglobin 27.7 PG (26-34); Mean Corpuscular Volume 82.5 fL (80-100); Platelet Count 262 X10^3/uL (150-400)
[2025-06-27 11:57] LABS: Hemoglobin A1C% w Est Avg Glu 5.9 % (4.0-6.0)
[2025-06-27 12:01] LABS: Blood Urea Nitrogen 26 mg/dL (9-20); Calcium 10.5 mg/dL (8.4-10.2); Carbon Dioxide 23 mmol/L (22-32); Chloride 106 mmol/L (98-107); Cholesterol 174 mg/dL (140-199); Estimated Glomerular Filt Rate > 60 mL/min (>60); Glucose 94 mg/dL (70-99); HDL Cholesterol 48 mg/dL (40-60); HEMOLYSIS < 15 (0-50); Potassium 5.1 mmol/L (3.4-5.1); Sodium 138 mmol/L (137-145); Triglycerides 137 mg/dL (35-150)
== END ==
PROVIDERS: PCP Family Medicine; Referring Provider Internal Medicine Cardiovascular Disease; Visit Provider Internal Medicine Cardiovascular Disease
DX: E11.9 Type 2 diabetes mellitus without complications (principal); I25.10 Atherosclerotic heart disease of native coronary artery without angina pectoris
CPT/HCPCS: 36415; 80048; 80061; 83036; 85027

== ENCOUNTER 2025-07-07 14:30 | Outpatient (RCR) | payer MEDICARE, SELFPAY ==
--- NOTE | 2025-06-17 15:43 | PT.OIE ---
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 DM2 (diabetes mellitus, type 2) MENDEZ (dyspnea on exertion) Dry eyes, bilateral Dysphagia Episodic weakness Giardia Gout (~1994) History of heart attack History of smoking greater than 50 pack years Hyperlipidemia Hypertriglyceridemia Lumbar disc disease with radiculopathy Microcytic anemia Mumps (~1962) Myocardial infarction Obesity (BMI 30.0-34.9) Orthostatic hypotension Pancreatic insufficiency Upper extremity somatic dysfunction Vitamin D deficiency Vitamin D deficiency due to chronic kidney disease Wears glasses Past Surgical History (Last Updated 05/19/25 @ 15:06 by Leisa Butler RN) Anesthesia History of ankle surgery (~2018) History of carpal tunnel release (~2016) History of coronary angiogram History of repair of ACL (~2011) History of repair of rotator cuff History of umbilical hernia repair (~2000) History of vocal cord polypectomy S/P CABG x 3 (01/06/23) S/P lumbar laminectomy Visit Care Team Role Provider Type Fabrizio Carranza DO Primary Care Provider Physician Specialty: Family Practice Address: [address] [place] [address], [id number] Email: Darell Vidal MD Attending Provider Physician Referring Provider Specialty: Orthopedic Surgery Address: [address] [place] [address], [id number] Email: Physical Therapy Initial Evaluation PT OP: Lower Back/Lower Extremity Start: 06/17/25 14:43 Freq: Status: Active Protocol: Document 06/17/25 14:43 JOSE (Rec: 06/17/25 15:43 JOSE [id number]) Out-Patient Physical Therapy Visit Information Visit Information Visit Type Initial Evaluation Visit Start Time 14:30 Visit Stop Time 15:15 Visit Number 1 Number of EMERGENCY CARE ATTENDANT Visits 0 Progress Note Due 07/17/25 OP-PT Subjective Patient Comments Patient Comments History of current diagnosis: Patient presents to PT with s/p laminectomy of L1-3 and L4-S1 on February 13. He reports that prior to the surgery he had some chronic low back pain and radiating symptoms down his legs. He reports that since the laminectomy his back pain has been improved but now he has a good deal of muscular pain in his low back. He has not had any PT since his surgery. He currently takes gabapenton daily as well as OTC ibuprofen. Precautions: None Occupation: Retired from from working on [employer] Physical activities/ hobbies: yard work, vacuuming Pain location: bilateral lateral low back Pain description: tightening Pain 0-10/10 (current): 2/10 Pain 0-10/10 (worst): 7/10 - when standing for extended periods Pain 0-10/10 (best): 0/10 - when sitting Aggravating: Lifting heavy items, bending down, standing for extended periods Alleviating: Sitting, not currently performing any PT Function prior to injury: Independent with all ADLs Function current: Independent with all ADLs - limited with lifting, standing for extended periods, bending down Patient goals: Manage pain levels Patient Questionnaires Lower Extremity Functional Scale LEFS Score 52 LEFS Impairment 20 to 39% Impaired (Score 48-62) Oswestry Low Back Index Oswestry Score 10 Oswestry Impairment 1 to 19% Impaired (Score 1-19) Lumbar Spine Range of Motion Lumbar Spine Active Degrees Comments Movement screen: Standing flexion: Limited Standing extension: Limited L side bending: WFL R side bending: WFL L rotation: Limited R rotation: Limited Physical Therapy Assessment Rehab Potential Rehabilitation Good Potential Evaluation Complexity Number of Personal 0 Factors/ Comorbidities Number of Body 1-2 Systems Impaired Clinical Stable Presentation at Evaluation Impairments Impairments Activity Tolerance,Coordination,Functional Activities, Functional Mobility,Gait,Pain,Posture,ROM,Strength Goals Three Impairment General LE function Short Term Goal (STG Patient will demonstrate an increase in LEFS score to a ) 60 in order to show an increase in self-perceived function. STG Duration 4 weeks Detention Goal (LTG) Patient will demonstrate an increase in LEFS score to a 68 in order to show an increase in self-perceived function. LTG Duration 8 weeks Two Impairment Standing tolerance/ pain intensity Short Term Goal (STG Patient will report a reduction in pain at worst to a 5 ) /10 in order to better function with standing for extended periods. STG Duration 4 weeks Cfo Goal (LTG) Patient will report a reduction in pain at worst to a 3 /10 in order to better function with standing for extended periods. LTG Duration 8 weeks One Impairment Bending/ lifting tolerance Short Term Goal (STG Patient will bend down to full depth with proper ) mechanics and no increases in pain levels. STG Duration 4 weeks Detention Goal (LTG) Patient will lift 30# from the floor with proper mechanics and no increases in pain levels. LTG Duration 8 weeks Assessment Summary Assessment Patient presenting to PT s/p laminectomy of L1-3 and L4 -S1 on February 13. Functional deficits include standing for extended periods, bending down to the floor, and lifting. Objective investigation revealed deficits in lumbar ROM (See measures: extension, flexion, B rotation), and symptom reproduction with bending down to lift. Presentation is consistent with normal post- operative ROM and strength deficits and patient will benefit from PT to address deficits and return to prior level of function. Physical Therapy Plan Frequency and Duration Frequency of 2x/Week Treatment Duration of 12 treatment (weeks) Plan of Care Start 06/17/25 Date Plan of Care End 09/15/25 Date Therapeutic Interventions Therapeutic Aquatic Therapy,Balance Training,Coordination Training, Interventions Gait Training,Home Exercise Program,Manual Therapy, Neuromuscular Re-education,Patient/Caregiver Education, Self-Care/Home Management,Soft Tissue Mobilization, Taping,Therapeutic Activities,Therapeutic Exercises Modalities Biofeedback,Cold Pack/Ice Massage,Electric Stimulation, Hot Packs,Ultrasound,Vasopneumatic Devices Next Visit Focus/Plan Next Note Type Treatment Note Next Visit Plan Initiate plan of care with focus on lumbar ROM and progressive strengthening of gross posterior chain, lumbar region, and core.
--- NOTE | 2025-06-27 09:50 | PT.OTN ---
Current Diagnoses Strain of muscle, fascia and tendon of lower back, subsequent encounter (06/27/25) Other specified postprocedural states (06/27/25) Physical Therapy Treatment Note PT OP: Lower Back/Lower Extremity Start: 06/17/25 14:43 Freq: Status: Active Protocol: Document 06/27/25 08:44 JZ (Rec: 06/27/25 09:50 JZ [id number]) Out-Patient Physical Therapy Visit Information Visit Information Visit Type Treatment Note Visit Start Time 09:10 Visit Stop Time 09:50 Visit Number 2 Number of FISH ROE PROCESSOR Visits 0 Progress Note Due 07/17/25 OP-PT Subjective Patient Comments Patient Comments Patient reports he has been doing his home exercises. No changes in presentation. Therapeutic Exercises Sitting Exercises Seated hip hinge Resistance 10# Reps/Minutes 2x10 Seated flexion Reps/Minutes x15 Seated rotation Reps/Minutes 2x10 Seated extension Reps/Minutes x15 Standing Exercises Standing hip hinge Equipment Used 10# Reps/Minutes 3x10 Comments Tap to first step Sit to stands Resistance 10# Reps/Minutes 3x10 Physical Therapy Assessment Goals Three Impairment General LE function Short Term Goal (STG Patient will demonstrate an increase in LEFS score to a ) 60 in order to show an increase in self-perceived function. STG Duration 4 weeks Laborer Steel Handling Goal (LTG) Patient will demonstrate an increase in LEFS score to a 68 in order to show an increase in self-perceived function. LTG Duration 8 weeks Two Impairment Standing tolerance/ pain intensity Short Term Goal (STG Patient will report a reduction in pain at worst to a 5 ) /10 in order to better function with standing for extended periods. STG Duration 4 weeks Fpc Goal (LTG) Patient will report a reduction in pain at worst to a 3 /10 in order to better function with standing for extended periods. LTG Duration 8 weeks One Impairment Bending/ lifting tolerance Short Term Goal (STG Patient will bend down to full depth with proper ) mechanics and no increases in pain levels. STG Duration 4 weeks Fpc Goal (LTG) Patient will lift 30# from the floor with proper mechanics and no increases in pain levels. LTG Duration 8 weeks Assessment Summary Assessment Treatment focused on initiating lumbar and gross posterior chain strengthening. Patient tolerated treatment well with no increases in pain levels. Plan next session to add core strengthening exercises and progress loads as appropriate. Physical Therapy Plan Frequency and Duration Frequency of 2x/Week Treatment Duration of 12 treatment (weeks) Plan of Care Start 06/17/25 Date Plan of Care End 09/15/25 Date Next Visit Focus/Plan Next Note Type Treatment Note Next Visit Plan Initiate plan of care with focus on lumbar ROM and progressive strengthening of gross posterior chain, lumbar region, and core. Current HEP: Seated rotations Seated extension Seated flexion
--- NOTE | 2025-06-30 10:31 | PT.OTN ---
Current Diagnoses Strain of muscle, fascia and tendon of lower back, subsequent encounter (06/30/25) Other specified postprocedural states (06/30/25) Physical Therapy Treatment Note PT OP: Lower Back/Lower Extremity Start: 06/17/25 14:43 Freq: Status: Active Protocol: Document 06/30/25 09:53 SP (Rec: 06/30/25 10:50 SP [id number]) Out-Patient Physical Therapy Visit Information Visit Information Visit Type Treatment Note Visit Start Time 09:53 Visit Stop Time 10:31 Visit Number 3 Number of DEVELOPMENT ARCHITECT Visits 1 Progress Note Due 07/17/25 OP-PT Subjective Patient Comments Patient Comments Ptstates just had hip surgery and is having to help her, eg get up out of chair, following behind with FWW. Therapeutic Exercises Supine Exercises HS stretch Supine Exercise Name added to HEP with HO Side bilateral Equipment Used grasp gehind thigh, lower leg lift Reps/Minutes 60 sec (cues can add small AP if wish) Comments good feedback stretch Modified Erik Stretch Supine Exercise Name added to HEP with HO Side bilateral Reps/Minutes 60 sec Comments opp LE knee bent on table, cues breath no LB arch- good stretch Sitting Exercises Seated hip hinge Resistance 10# Reps/Minutes 2x10 Comments cued head up/chin nod neutral, spine straight, hip hinge Seated rotation Reps/Minutes 2x10 Standing Exercises Wall Posture Standing Exercise added to HEP with HO Name Side bilateral Equipment Used back to wall Reps/Minutes 10 sec hold x10 Comments spinal roll up on wall, humeral ER neutral palms fwd Other Exercises Self STMs Other Exercise Name Ball roll ES and gluts Reps/Minutes 2 min total Comments godo response back less tension massage Manual Therapy Treatment Consent Patient gave verbal Yes consent for manual treatment Soft Tissue Mobilization Hips Body Location Gluts, Piriformis, prox HS Mobilization Type Rolling,Sustained Pressure,Other Intensity/Depth Moderate Body Position prone over pillow Comments gentle STMs and MWM hip IR/ER Back Body Location ES, Paraspinals, QL Mobilization Type Rolling Intensity/Depth Moderate Body Position prone over pillow Comments gentle STMs with feedback tolerant pressure, ed self ball on wall ES, gluts MWM hip IR/ER during Self-Care/Home Management Treatment Education Patient Education Body Mechanics,Home Exercise Program,Joint Protection, Pain Management,Posture,Safety Other Education Education on spinal aligmment during daily activities carryover with added wall posture and stretching regimen support back lessening pain. Provided HO for postural alignment and gravity applied pressure causing increased weight to spine when more fwd. Discussion spinal alignment and education self use of BUEs and strap on foot for her mobility to lessen need from this pt and potential compermise his mechanics. Physical Therapy Assessment Goals Three Impairment General LE function Short Term Goal (STG Patient will demonstrate an increase in LEFS score to a ) 60 in order to show an increase in self-perceived function. STG Duration 4 weeks Custodial Goal (LTG) Patient will demonstrate an increase in LEFS score to a 68 in order to show an increase in self-perceived function. LTG Duration 8 weeks Two Impairment Standing tolerance/ pain intensity Short Term Goal (STG Patient will report a reduction in pain at worst to a 5 ) /10 in order to better function with standing for extended periods. STG Duration 4 weeks Hemstitching Machine Operator Goal (LTG) Patient will report a reduction in pain at worst to a 3 /10 in order to better function with standing for extended periods. LTG Duration 8 weeks One Impairment Bending/ lifting tolerance Short Term Goal (STG Patient will bend down to full depth with proper ) mechanics and no increases in pain levels. STG Duration 4 weeks Custodial Goal (LTG) Patient will lift 30# from the floor with proper mechanics and no increases in pain levels. LTG Duration 8 weeks Assessment Summary Assessment Pt improved postural alignment with cues and understanding corrections for maintain during HEP ther ex for strengthening and proper carryover body mechanics self mobility helping with transfers. Instructed stretching regimen and self massage ball roll ES today to compliment anterior chain flexibility to support less back tension with good feedback response, no LBP leaving. Physical Therapy Plan Frequency and Duration Frequency of 2x/Week Treatment Duration of 12 treatment (weeks) Plan of Care Start 06/17/25 Date Plan of Care End 09/15/25 Date Therapeutic Interventions Therapeutic Aquatic Therapy,Balance Training,Coordination Training, Interventions Gait Training,Home Exercise Program,Manual Therapy, Neuromuscular Re-education,Patient/Caregiver Education, Self-Care/Home Management,Soft Tissue Mobilization, Taping,Therapeutic Activities,Therapeutic Exercises Modalities Biofeedback,Cold Pack/Ice Massage,Electric Stimulation, Hot Packs,Ultrasound,Vasopneumatic Devices Next Visit Focus/Plan Next Note Type Treatment Note Next Visit Plan Continue per plan of care with focus on lumbar ROM and progressive strengthening of gross posterior chain, lumbar region, and core. REcheck stretching anterior chain. Current HEP: Seated rotations Seated extension Seated flexion
--- NOTE | 2025-07-04 10:36 | PT.OTN ---
Current Diagnoses Strain of muscle, fascia and tendon of lower back, subsequent encounter (07/04/25) Other specified postprocedural states (07/04/25) Physical Therapy Treatment Note PT OP: Lower Back/Lower Extremity Start: 06/17/25 14:43 Freq: Status: Active Protocol: Document 07/04/25 09:53 JZ (Rec: 07/04/25 10:35 JZ [id number]) Out-Patient Physical Therapy Visit Information Visit Information Visit Type Treatment Note Visit Start Time 09:50 Visit Stop Time 10:30 Visit Number 4 Number of PICTURE FRAMER Visits 1 Progress Note Due 07/17/25 OP-PT Subjective Patient Comments Patient Comments Patient reports no large changes in symptoms. His back is feeling a little stiff this morning but no pain. Therapeutic Exercises Sitting Exercises Seated hip hinge Resistance 10# Reps/Minutes 2x10 Comments cued head up/chin nod neutral, spine straight, hip hinge Seated flexion Reps/Minutes x15 Seated rotation Reps/Minutes 2x10 Seated extension Reps/Minutes x15 Standing Exercises Step ups Standing Exercise Lateral tap downs Name Reps/Minutes x10 each side Standing hip hinge Equipment Used 10# Reps/Minutes 3x15 Comments Tap to first step, cues for posterior hip hinge Sit to stands Resistance 10# Reps/Minutes 3x10 Physical Therapy Assessment Goals Three Impairment General LE function Short Term Goal (STG Patient will demonstrate an increase in LEFS score to a ) 60 in order to show an increase in self-perceived function. STG Duration 4 weeks Compensation Consultant Goal (LTG) Patient will demonstrate an increase in LEFS score to a 68 in order to show an increase in self-perceived function. LTG Duration 8 weeks Two Impairment Standing tolerance/ pain intensity Short Term Goal (STG Patient will report a reduction in pain at worst to a 5 ) /10 in order to better function with standing for extended periods. STG Duration 4 weeks Compensation Consultant Goal (LTG) Patient will report a reduction in pain at worst to a 3 /10 in order to better function with standing for extended periods. LTG Duration 8 weeks One Impairment Bending/ lifting tolerance Short Term Goal (STG Patient will bend down to full depth with proper ) mechanics and no increases in pain levels. STG Duration 4 weeks Compensation Consultant Goal (LTG) Patient will lift 30# from the floor with proper mechanics and no increases in pain levels. LTG Duration 8 weeks Assessment Summary Assessment Treatment focused on posterior chain strengthening. Patient tolerated treatment well with no lasting increases in symptoms. Plan next session to follow up on home exercises and progress loading as tolerated. Physical Therapy Plan Frequency and Duration Frequency of 2x/Week Treatment Duration of 12 treatment (weeks) Plan of Care Start 06/17/25 Date Plan of Care End 09/15/25 Date Next Visit Focus/Plan Next Note Type Treatment Note Next Visit Plan Continue per plan of care with focus on lumbar ROM and progressive strengthening of gross posterior chain, lumbar region, and core. REcheck stretching anterior chain. Current HEP: Seated rotations Seated extension Seated flexion
--- NOTE | 2025-07-07 15:18 | PT.OTN ---
Current Diagnoses Strain of muscle, fascia and tendon of lower back, subsequent encounter (07/07/25) Other specified postprocedural states (07/07/25) Physical Therapy Treatment Note PT OP: Lower Back/Lower Extremity Start: 06/17/25 14:43 Freq: Status: Active Protocol: Document 07/07/25 13:56 JZ (Rec: 07/07/25 15:17 JZ [id number]) Out-Patient Physical Therapy Visit Information Visit Information Visit Type Treatment Note Visit Start Time 14:35 Visit Stop Time 15:15 Visit Number 5 Number of MEDICAL RECORDS RECEPTIONIST Visits 0 Progress Note Due 07/17/25 OP-PT Subjective Patient Comments Patient Comments Patient reports his back is a bit sore today. He reports it felt good after his last session. Therapeutic Exercises Prone Exercises Prone active extension Reps/Minutes 2x10 Prone press up Reps/Minutes x20, 3 hold Comments From forearms Sitting Exercises Seated hip hinge Resistance 10# Reps/Minutes 2x10 Comments cued head up/chin nod neutral, spine straight, hip hinge Seated flexion Reps/Minutes x15 Seated rotation Reps/Minutes x15 Seated extension Reps/Minutes x15 Standing Exercises Side plank on plinth Reps/Minutes 3x30 each side Standing hip hinge Equipment Used 10# Reps/Minutes 3x10 Comments Tap to first step, cues for posterior hip hinge Sit to stands Standing Exercise Tap to chair Name Resistance 10# Reps/Minutes 2x10 Physical Therapy Assessment Goals Three Impairment General LE function Short Term Goal (STG Patient will demonstrate an increase in LEFS score to a ) 60 in order to show an increase in self-perceived function. STG Duration 4 weeks Shoe Cleaner Goal (LTG) Patient will demonstrate an increase in LEFS score to a 68 in order to show an increase in self-perceived function. LTG Duration 8 weeks Two Impairment Standing tolerance/ pain intensity Short Term Goal (STG Patient will report a reduction in pain at worst to a 5 ) /10 in order to better function with standing for extended periods. STG Duration 4 weeks Shoe Cleaner Goal (LTG) Patient will report a reduction in pain at worst to a 3 /10 in order to better function with standing for extended periods. LTG Duration 8 weeks One Impairment Bending/ lifting tolerance Short Term Goal (STG Patient will bend down to full depth with proper ) mechanics and no increases in pain levels. STG Duration 4 weeks Chcf Goal (LTG) Patient will lift 30# from the floor with proper mechanics and no increases in pain levels. LTG Duration 8 weeks Assessment Summary Assessment Treatment focused on progressing strengthening exercises. Patient tolerated treatment well with no increases in pain and reported muscular fatigue near end of sets. Plan next session to follow up on home exercises and continue with plan of care. Physical Therapy Plan Frequency and Duration Frequency of 2x/Week Treatment Duration of 12 treatment (weeks) Plan of Care Start 06/17/25 Date Plan of Care End 09/15/25 Date Next Visit Focus/Plan Next Note Type Treatment Note Next Visit Plan Continue per plan of care with focus on lumbar ROM and progressive strengthening of gross posterior chain, lumbar region, and core. REcheck stretching anterior chain. Current HEP: Seated rotations Seated extension Seated flexion
--- NOTE | 2025-07-31 10:14 | PT.OPDS ---
Current Diagnoses Strain of muscle, fascia and tendon of lower back, subsequent encounter (07/07/25) Other specified postprocedural states (07/07/25) Visit Care Team Role Provider Type Fabrizio Carranza DO Primary Care Provider Physician Specialty: Family Practice Address: [address] [place] [address], [id number] Email: Darell Vidal MD Attending Provider Physician Referring Provider Specialty: Orthopedic Surgery Address: [address] [place] [address], [id number] Email: Visit Number Visit Number 5 Discharge Summary PT OP: Lower Back/Lower Extremity Start: 06/17/25 14:43 Freq: Status: Active Protocol: Document 07/31/25 10:11 JOSE (Rec: 07/31/25 10:12 JOSE [id number]) Out-Patient Physical Therapy Visit Information Visit Information Visit Type Discharge Summary Physical Therapy Assessment Assessment Summary Assessment Patient cancelled his remaining PT appointments and has not reached out to schedule more. Episode of care will be discharged at this time due to lack of follow up.
== END 2025-08-01 10:09 | disposition home or self-care (01) ==
LOC: PHYS 14:30
PROVIDERS: PCP Family Medicine; Referring Provider Orthopaedic Surgery; Visit Provider Orthopaedic Surgery
DX: Z98.890 Other specified postprocedural states (principal); S39.012D Strain of muscle, fascia and tendon of lower back, subsequent encounter
CPT/HCPCS: 97110; 97140; 97161

== ENCOUNTER → 2025-07-09 10:01 | Outpatient (CLI) | payer MEDICARE, SELFPAY ==
--- NOTE | 2025-07-09 10:02 | DI.CT.S_ITS ---
PROCEDURE: CT LUNG LOW DOSE SCREENING INDICATIONS: Screen lung cancer TECHNIQUE: Noncontrast 2.0-2.5 mm thick sections acquired from the pulmonary apices to the posterior costophrenic angles. 7 mm thick axial MIP, and 5 mm coronal and sagittal reformats were then acquired. For radiation dose reduction, the following was used: automated exposure control, adjustment of mA and/or kV according to patient size. COMPARISON: None. FINDINGS: Image quality: Diagnostic. Lower Neck: No enlarged lymph nodes. Thyroid: No thyroid nodules which require sonographic follow up, per consensus guidelines. Axillae: No enlarged lymph nodes. Chest Wall: Unremarkable. Bones: Moderate centrilobular emphysema. Small grouping of tree-in-bud and centrilobular nodules in the posterior right upper lobe. Lungs and Pleura: No pneumothorax or pleural effusions. No consolidation or suspicious nodules. Heart: Heart size is enlarged. No pericardial effusion. Three-vessel coronary calcifications. Prior CABG. Thoracic Vessels: The aorta and pulmonary arteries demonstrate normal size. Mediastinum and [place]: No enlarged lymph nodes. Esophagus: No wall thickening. No hiatal hernia. Upper Abdomen: Visualized upper abdomen solid organs and bowel loops appear normal. IMPRESSION: Small grouping of centrilobular and tree-in-bud nodules in the right upper lobe. This is likely infectious/inflammatory. Short-term follow-up is indicated. LUNG-RADS 0; 1-3 month follow-up with low-dose chest CT. Clinically Significant Non-pulmonary Findings: None. Dictated by: Matheus Fermin M.D. on 07/09/2025 at 11:45 Approved by: Matheus Fermin M.D. on 07/09/2025 at 11:48
== END ==
LOC: CT 10:02
PROVIDERS: PCP Family Medicine; Referring Provider Family Medicine; Visit Provider Family Medicine
DX: I25.10 Atherosclerotic heart disease of native coronary artery without angina pectoris (principal); R91.8 Other nonspecific abnormal finding of lung field; Z87.891 Personal history of nicotine dependence
CPT/HCPCS: 71271

== ENCOUNTER → 2025-07-24 09:05 | Outpatient (CLI) | payer MEDICARE, SELFPAY ==
--- NOTE | 2025-07-24 09:08 | DI.NM.S_ITS ---
PROCEDURE: NM AKASH PERF SPECT REST & STR Rest and exercise myocardial perfusion SPECT with gated imaging and ejection fraction RADIOPHARMACEUTICAL: 25.5 mCi Tc-99m sestamibi IV at rest and 26.6 mCi Tc-99m sestamibi IV at peak exercise. A 2 day-protocol was performed. INDICATIONS: Dyspnea on exertion TECHNIQUE: Radiopharmaceutical was injected at peak stress test, and also at rest. SPECT images were obtained. SPECT myocardial perfusion images were displayed in short axis, horizontal long axis, and vertical long axis views. Gated images were reviewed using [employer] software. COMPARISON: None. CARDIAC STRESS: A standard Sandeep treadmill exercise tolerance test was performed by the patient under the supervision of an attending staff. The patient exercised for 5 minutes and 09 seconds; 7.0 METS; functional aerobic impairment (PB) is +20%. Hemodynamic data: There is normal blood pressure and heart rate response to exercise stress. Patient achieved 93% of maximum predicted heart rate at peak exercise. Peak blood pressure 160/74. Symptoms: Patient denied chest pain during exercise. EKG: Rest ECG sinus rhythm 66 bpm. Exercise ECG sinus tachycardia, no obvious ST segment changes however artifact limits interpretation at peak exercise and in early recovery, rare PACs and PVCs. FINDINGS: Raw data: There is good myocardial labeling by radiotracer. No significant motion artifacts. Pxhr-qo-ruvca ratio is 0.42 (normal is less than 0.38 for sestamibi tracer, and less than 0.50 for thallium tracer). Left ventricle function: Gated images demonstrate normal left ventricle wall thickening. No segmental wall motion abnormality. No transient ischemic dilation; TID is 1.43 (normal less than 1.3). The left ventricle resting end-diastolic volume is 68 mL. Left ventricle stress ejection fraction is 69%; normal values are above 45%. Myocardial perfusion: There is a small size, moderate to severe intensity reversible distal inferior wall defect. No fixed perfusion defects. IMPRESSION: Abnormal study. There is evidence of a small sized, moderate to severe intensity reversible distal inferior wall defect consistent with inducible ischemia. Abnormal TID. Normal LV size and function. No clear evidence of exercise-induced ECG changes however artifact limits interpretation. Normal hemodynamic response. Reduced exercise capacity. Dictated by: Daniella Hudson D.O. on 07/28/2025 at 17:13 Approved by: Daniella Hudson D.O. on 07/28/2025 at 17:18
== END ==
LOC: NUCM 09:06
PROVIDERS: PCP Family Medicine; Referring Provider Internal Medicine Cardiovascular Disease; Visit Provider Internal Medicine Cardiovascular Disease
DX: I25.10 Atherosclerotic heart disease of native coronary artery without angina pectoris (principal); R06.09 Other forms of dyspnea; R94.39 Abnormal result of other cardiovascular function study; Z95.1 Presence of aortocoronary bypass graft
CPT/HCPCS: 78452; 93017; A9502